=== PATIENT | male | born 1940 | race Caucasian/White ===

== ENCOUNTER 2017-03-25 15:00 | Outpatient (RCR) | payer MEDICARE, SELFPAY ==
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
--- NOTE | 2017-02-03 12:10 | HP.OTCOM ---
OT Communication Note 02/03/[address] Miryam Peter, Issac has been referred to us s/p distal radius fracture which required pinning. Pins removed 12/25/16 and OT started shortly after. He noted upon arriving that he has follow-up appointment to further discuss pain relieving options for his L UE. Pt. completed strength and ROM assessment post paraffin bath to help decrease pain from 4/10 to 0/10 prior to starting measurements. Pain consistently increased with each movement. Pt. ROM of L wrist and hand are as follows: L wrist flexion 0- 28, extension 0-30 degrees. Pt. has decreased ability to form composite fist and increased pain with all movements, especially supination. Pt. MCP of L hand ROM 2nd 62, 3rd 55, 4th 46, 5th 48, PIP 2nd 74, 3rd 82, 4th 95, 5th 81, DIP 2nd 35, 3rd 47, 4th 34, 5th 37. 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 Pt. edema is down with use if Isotoner edema glove. Pt. is unable to complete pinch strength assessment at this time on L hand. Pt. pinch assessment on R hand are as follows: lateral 20 lbs, three jaw 19 lbs, tip pinch 14 lbs. Pt. is scheduled for OT through the end of January. He is having significant pain consistently throughout the day. Occupational Therapists educated on alternative options, such as surgery to realign ulna. He is open to looking into further options for pain reduction at this time. Sincerely, Julee Gonzales, OTR/L Contact Information
--- NOTE | 2017-02-19 12:35 | OTREVAL_ITS ---
Miryam Peter, DO, It has been my pleasure to treat WILBER BRADY over the last 8 visits for s/p CRPP L radiaus amd CYN; Pins removed 12/22. Please see the progress note below for an update on the occupational therapy plan of care! Subjective: pt arrives with brace on states he still has pain at night-doing what he can with wrist brace on. Pt states pain increases when the wrist brace is removed. Reports he is has pain with bathing and dressing as this is a time he does not have his brace on. With brace he feels better and pain is less. Objective/Function: Pt has had recent set back of increase pain and swelling two weeks ago. pt was place back in wrist brace to decrease pain and swelling. pt has had a decrease in swelling, and pts pain has decreased from 8/10 to 2/ 10. He demonstrates increase in the ability to form a composite fist- at 1.5 away. Wrist ROM is improving pt's sup/pronation of forearm is more challenging and causes pain- Wrist ROM 40/35 is improving. Plan Frequency: 2x /Week Duration: 4-6 Weeks Plan: has instructed pt to initiate light strengthening as pt tolerates to increase his ind. with funcitonal strength. Goals - Goals Goal:: Pt. to increase L hand strength by 30 lbs to increase fx use of hand for ADl/IADls 4/5 trials 80% of the time by d/c in 4-6 weeks. Goal:: Pt. to increase L wrist ROM to that of 10 degrees lesser value of R wrist for flex/ext for increase (I) in ADl/IADl sby time of d/c in 4-6 weeks. Goal:: Pt. will exhibit decrease pain to 1-2/10 during fx activities for increased (I) in ADl/IADl s and QOL by time of d/c in 406 weeks. Goal:: Pt. to exhibit decreased edema in L hand to measurement similar to R hand for increased (I) and decrease pain by time of d/c in 4-6 weeks. Goal:: Pt. to be mod I to implement Jt protection techniques 4/5 trials 80% of the time to increase (I) and decrease need for assistance. Goal:: Pt. to be mod I to resume ADl/IADl with L hand (i.g kicthen tasks, utensil manipulation, yard work etc.) for increased (I) and QOL by time of d/c in 4-6 weeks. Anticipated Interventions Anticipated Interventions: Early Active Motion, A/AAROM/PROM, Strengthening, Edema Control, Desensitization, Joint Protection/Energy Conservation, Ergonomic Education, Fine Motor Coord/Michael, ADL Training, Caregiver Training, Home Program Please do not hesitate to contact me at [phone] by phone or Fax: if you have questions or concerns regarding this new plan of care! Sincerely, Roselyn Rosas, OTR/L, CHT
== END 2017-08-25 16:00 | disposition home or self-care (01) ==
LOC: OT 15:00
PROVIDERS: Family Provider Family Medicine; PCP Family Medicine; Visit Provider Orthopaedic Surgery
DX: Z98.890 Other specified postprocedural states (principal); Z47.89 Encounter for other orthopedic aftercare
CPT/HCPCS: 97018; 97035; 97110; 97140; 97166; 97530

== ENCOUNTER 2017-09-21 06:00 | Outpatient (RCR) | payer SELFPAY | END 2017-09-22 23:59 | LOC: CR 06:00 | PROVIDERS: Family Provider Family Medicine; PCP Family Medicine; Visit Provider Family Medicine | DX: Z00.00 Encounter for general adult medical examination without abnormal findings (principal) ==

== ENCOUNTER 2017-10-19 06:00 | Outpatient (RCR) | payer SELFPAY | END 2017-10-20 23:59 | LOC: CR 06:00 | PROVIDERS: Family Provider Family Medicine; PCP Family Medicine; Visit Provider Family Medicine | DX: Z00.00 Encounter for general adult medical examination without abnormal findings (principal) ==

== ENCOUNTER 2017-10-28 09:30 | Outpatient (RCR) | payer MEDICARE, SELFPAY ==
--- NOTE | 2017-07-05 09:24 | HP.OTEVAL_ITS ---
Patient's Visit Information WILBER BRADY is a 77 year old M, referred to Occupational Therapy by Christopher Up,, with a diagnosis of left wrsit distal ulna resection and wrist arthrodesis with autograft. Date of Evaluation: 07/02/17 Occupational Therapist: Roselyn Rosas, ILSAR/Ebony, CHT - Subjective Subjective: This pt is well known to this therapist- Due to complicated left wrist fx. 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 After meeting with pt opted to have a left wrist distal resection and then wrist arthrodessis with autograft and allograft bone grafting. has requested Hand therapy to initiate digital ROM. pronation and supination edema control and modalities at indicated- - ROM ROM Comments: pt demo edema of left hand and limited digit ROM. pt states with MCP ext he feels a burning sensation-. MCP flex is 30 degrees-. 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 Pt will demo the ability to form a composite fist for increase ind with bathing/dressing and eating tasks by d/c Goal:: pt lamont report pain no greater than 2/10 with use of left UE for BADLS and IADLS by d/c - Rehabilitation General Assessment: pt arrives with cast on and demo with edema and limited digit and forearm supination- pt c/o left shoulder and elbow pain- limiting use of left UE for BADSL and IADLS Rehabilitation Potential: Good - Anticipated Interventions Anticipated Interventions: A/AAROM/PROM, Strengthening, Edema Control, Triggerpoint Release, Modalities, Orthoses, Joint Protection/Energy Conservation - Visit Plan Frequency: 1-2x /Week Duration: 6 Weeks General Plan: will initiate functional ROM per Dr. garcia and will progress as able to increase pts functional ROM and functional strength to return pt to PLOF TEXT: Thank you for the opportunity to evaluate your patient. For Medicare and Medicare HMO plans, please review the plan of care and approve it. It will need to be FAXED BACK to us at [phone] for Medicare purposes. Please let me know if there are questions or concerns regarding this plan of care. Physician Signature: Date:
--- NOTE | 2017-08-13 08:54 | HP.OTREVAL ---
Christopher Up, It has been my pleasure to treat WILBER BRADY over the last 6 visits for left wrsit distal ulna resection and wrist arthrodesis with autograft. Please see the progress note below for an update on the occupational therapy plan of care! Subjective: pt states he has made gains but he has good and bad days with his end range of motion and pain Objective/Function: pt demo good ext of digits-. right oncology registrar 60# left oncology registrar 15#. left lat.pinch 5#. right lat. pinch 16#. left tripod pinch 4#. right tripod pinch 12#. 1 from composite fist Plan Frequency: 1-2x /Week Duration: 6 Weeks Plan: pt is making good progress with is digit ROM and forearm supination. pt just initiated PRE to increase oncology registrar strength to return pt to PLOF. REc'd cont. of skilled OT services for pt to reach his max rehab Goals - Goals Goal:: pt will demo a 35# oncology registrar strength to increase ind with BADLs and IADLs to decrease need of assist from his by d/c Goal:: pt will demo the ability to sup left forearm to hold coins and perform BADls by d/c. Pt will demo the ability to form a composite fist for increase ind with bathing/dressing and eating tasks by d/c Goal:: pt lamont report pain no greater than 2/10 with use of left UE for BADLS and IADLS by d/c Anticipated Interventions Anticipated Interventions: A/AAROM/PROM, Strengthening, Edema Control, Triggerpoint Release, Modalities, Orthoses, Joint Protection/Energy Conservation Please do not hesitate to contact me at [phone] by phone or if you have questions or concerns regarding this new plan of care! Sincerely, Roselyn Rosas, OTR/L, CHT
--- NOTE | 2017-10-28 10:18 | HP.OTDCSUM ---
HP - OT D/C Summary It has been my pleasure to treat WILBER BRADY under orders from Christopher Up, for the diagnosis of left wrsit distal ulna resection and wrist arthrodesis with autograft for a total of 8 visit(s). Please see the following information for a summary of their discharge status. - Objective Objective/Function: pt demo with left laser systems engineer strength 40#. left later pinch 8#. pts IF stays 1cm away from composite flex-. all other fingers demo functional ROM. left wrist circum. 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 Pt will demo the ability to form a composite fist for increase ind with bathing/dressing and eating tasks by d/c Goal:: pt lamont report pain no greater than 2/10 with use of left UE for BADLS and IADLS by d/c - Plan Plan: D/C - D/C Information Discharge Comments: pt has progressed well following a left wrist fusion- pt reports he is ind. with all BADLS and IADLS. pt does have increase sorness following alot of lifting or other activities. pt iwas advised to use ice to decrease swelling and heat to decrease finger stiffness- pt demo understanding - pt has met functional goals and is D/C If there are questions or concerns regarding this patient's occupational therapy, please fell free to call me at [phone]. Thank you for the referral of this patient. Sincerely, Roselyn Rosas, OTR/L, CHT
== END 2017-10-28 19:00 | disposition home or self-care (01) ==
LOC: OT 09:30
PROVIDERS: Family Provider Family Medicine; PCP Family Medicine; Visit Provider Orthopaedic Surgery
DX: S52.55 Other extraarticular fracture of lower end of radius (principal); M25.532 Pain in left wrist
CPT/HCPCS: 97166; 97018; 97035; 97110; 97140; 97168; 97530; 97802; G8987; G8988

== ENCOUNTER 2017-11-18 06:00 | Outpatient (RCR) | payer SELFPAY | END 2017-11-20 23:59 | LOC: CR 06:00 | PROVIDERS: Family Provider Family Medicine; PCP Family Medicine; Visit Provider Family Medicine | DX: Z00.00 Encounter for general adult medical examination without abnormal findings (principal) ==

== ENCOUNTER 2017-12-16 06:00 | Outpatient (RCR) | payer MEDICARE, SELFPAY | END 2017-12-20 23:59 | LOC: CR 06:00 | PROVIDERS: Family Provider Family Medicine; PCP Family Medicine; Visit Provider Family Medicine | DX: Z00.00 Encounter for general adult medical examination without abnormal findings (principal) ==

== ENCOUNTER → 2018-01-05 10:48 | Outpatient (CLI) | payer MEDICARE, SELFPAY ==
--- NOTE | 2018-01-05 10:50 | ECHOCS_ITS ---
Reason For Study: CAD/ASHD Procedure This was a 2D Doppler, Color Flow transthoracic echocardiogram. The exam was of fair technical quality due to body habitus. The study was technically difficult. Contrast injection was performed. Exam performed in department. Left Ventricle Normal LV size. Mild segmental systolic dysfunction (see wall motion). The estimated ejection fraction is 50 %. Unable to assess diastolic dysfunction. Mid-Anterior : Hypokinetic. Mid-Lateral : Hypokinetic. Mid-Posterior: Hypokinetic. Mid-anteroseptal : Hypokinetic. Anterior [place] : Akinetic. Inferior [place] : Hypokinetic. Lateral [place] : Hypokinetic. Septal [place] : Hypokinetic. Right Ventricle Normal RV size. Normal systolic function. Atria Normal left atrium. Normal right atrium. No doppler evidence for ASD. Mitral Valve There is no mitral annular calcification. Normal mitral valve. Mild-Moderate (1-2+) mitral valve insufficiency. Tricuspid Valve Normal tricuspid valve. Trivial tricuspid valve insufficiency. Right ventricular systolic pressure estimated to be 19 mmHg. Aortic Valve Trisinus/trileaflet aortic valve. Moderate diffuse aortic valve thickening. Moderate focal aortic valve calcification. Mild to moderate aortic stenosis. Mild (1+) aortic valve insufficiency. Pulmonic Valve The pulmonic valve is not well visualized. Mild (1+) pulmonic valve insufficiency. Great Vessels Mildly dilated ascending aorta. Pericardium/Pleural No pericardial effusion. Medication Definity0.3ml given slow IV push to enhance endocardial definition. MMode/2D Measurements & Calculations LVIDd: 5.1 cm IVSd: 1.1 cm LVOT diam: 2.1 cm LVIDs: 3.7 cm LVPWd: 0.97 cm LVOT area: 3.6 cm2 RVDd: 4.5 cm FS: 27.0 % Ao root diam: 4.2 cm LAV(MOD-bp): 31.7 ml LA A4 area: 11.7 cm2 LA dimension: 4.5 cm LAV(MOD-bp) Indexed: 14.8 ml/m2 LAV(MOD-sp2): 40.5 ml LAV(MOD-sp4): 24.4 ml RA A4 area: 14.5 cm2 Doppler Measurements & Calculations MV E max jeromy: 63.5 cm/sec Lat Peak E' Jeromy: 6.5 cm/sec Med Peak E' Jeromy: 4.5 cm/sec MV A max jeromy: 102.4 cm/sec E/E' lat: 9.8 E/E' med: 14.1 MV E/A: 0.62 Ao V2 max: 283.6 cm/sec AI max jeromy: 329.6 cm/sec LV V1 max: 109.8 cm/sec Ao max P.2 mmHg AI max P.6 mmHg LV V1 max P.8 mmHg Ao V2 mean: 211.2 cm/sec AI dec slope: 168.2 cm/sec2 LV V1 mean P.1 mmHg Ao mean P.5 mmHg AI P1/2t: 573.9 msec LV V1 mean: 84.9 cm/sec Ao V2 VTI: 64.4 cm LV V1 VTI: 26.2 cm CONCETTA(I,D): 1.5 cm2 CONCETTA(V,D): 1.4 cm2 SV(LVOT): 94.0 ml PA V2 max: 126.0 cm/sec PI end-d jeromy: 96.2 cm/sec TR max jeromy: 196.4 cm/sec TR max P.5 mmHg Interpretation Summary The study was technically difficult. Contrast injection was performed. Mild segmental systolic dysfunction (see wall motion). The estimated ejection fraction is 50 %. Mild-Moderate (1-2+) mitral valve insufficiency. Trivial tricuspid valve insufficiency. Mild to moderate aortic stenosis. Mild (1+) aortic valve insufficiency. Mild (1+) pulmonic valve insufficiency. Mildly dilated ascending aorta. Right ventricular systolic pressure estimated to be 19 mmHg. Unable to assess diastolic dysfunction. Ordering Physician: Freddie Persaud Referring Physician: Angel Calvillo Performed By: Nubia Ny, CATHERINE, RVT
== END ==
PROVIDERS: Family Provider Family Medicine; PCP Family Medicine; Visit Provider Internal Medicine Cardiovascular Disease
DX: I25.10 Atherosclerotic heart disease of native coronary artery without angina pectoris (principal); I31.3 Pericardial effusion (noninflammatory); I31.4 Cardiac tamponade; E78.5 Hyperlipidemia, unspecified; I10 Essential (primary) hypertension; R57.0 Cardiogenic shock; Z95.5 Presence of coronary angioplasty implant and graft; Z95.1 Presence of aortocoronary bypass graft
CPT/HCPCS: 93306; Q9957; A4216; C8929

== ENCOUNTER → 2018-01-28 07:46 | Outpatient (CLI) | payer MEDICARE, SELFPAY ==
--- NOTE | 2018-01-28 07:46 | DT_ITS ---
This patient was seen during an EMR downtime January 24, 2018 - January 31, 2018. This patient may have a combination of paper and electronic documentation or all paper documentation. All documentation is viewable within the e-chart portion of [facility] for each patient visit.
--- NOTE | 2018-01-28 07:55 | CT_ITS ---
STUDY: CTA CHEST REASON FOR EXAM: Male, 78 years old. Thoracic aortic ectasia. RADIATION DOSAGE (If Supplied By Facility): CTDIvol = ( 19.97 ) mGy, DLP = ( 738.55 ) mGycm TECHNIQUE: The examination was performed with the intravenous administration of 100ml ml of Isovue 370 contrast material. Post-processing of the angiographic images was performed, with multiplanar reformation and 3D reconstruction. Individualized dose optimization techniques were used for this CT. COMPARISON: None. FINDINGS: : TRACHEA, THYROID, ESOPHAGUS: No tracheomalacia,stricture or wall thickening. Thyroid and esophagus are normal CARDIOVASCULAR SYSTEM: There is an aberrant right subclavian artery. The thoracic aorta is otherwise normal with no dissection or focal aneurysm. The pulmonary trunk and the lateral pulmonary arteries and their lobar and segmental branches are normal with no abnormal and persistent filling defects in them to indicate the presence of pulmonary embolism. The heart is normal. KARYN AND LYMPH NODES: No hilar masses and no mediastinal, hilar, axillary or supraclavicular adenopathy LUNGS, LOW-ATTENUATION: No traction bronchiectasis, honeycombing,emphysema, lung cysts or cavitations LUNGS, HIGH ATTENUATION: No nodules/masses, ground glass opacities/consolidations or increased interstitial markings LUNGS, MOSAIC/CRAZY PAVING: Not evident PLEURA AND CHEST WALL: No plural effusions, pneumothoraces,rib fractures or any osteolytic/osteoblastic changes . The soft tissue chest wall including the breasts are normal UPPER ABDOMEN: Unremarkable .. CT/Chest W/WO Contrast IMPRESSION: No evidence of any pulmonary embolism. An aberrant right subclavian artery. No acute findings in the lungs Electronically Signed: Juan Martin, at 8:02 EDT Tel , Service support ,
[2018-02-06 14:58] LABS: CREATININE FINGERSTICK 1.15 mg/dL (0.70-1.30)
== END ==
PROVIDERS: Family Provider Family Medicine; PCP Family Medicine; Visit Provider Internal Medicine Cardiovascular Disease
DX: I77.810 Thoracic aortic ectasia (principal)
CPT/HCPCS: 71270; Q9967

== ENCOUNTER 2018-02-22 06:41 | Outpatient (RCR) | payer MEDICARE, SELFPAY | END 2018-03-22 23:59 | LOC: CR 06:41 | PROVIDERS: Family Provider Family Medicine; PCP Family Medicine; Visit Provider Family Medicine | DX: Z00.00 Encounter for general adult medical examination without abnormal findings (principal) ==

== ENCOUNTER → 2018-02-25 09:27 | Outpatient (CLI) | payer MEDICARE, SELFPAY ==
[2018-02-25 12:38] LABS: Anion Gap 10 (5-15); BUN 34 mg/dL (7-18); BUN/Creat Ratio 26.2 RATIO (10-20); Calcium,Total 8.8 mg/dL (8.5-10.1); Chloride 104 mmol/L (98-107); Cholesterol 80 mg/dL (200); EST Glomerular Filtration Rate 57 mL/min (>60); Est Glom Filt Rate - Afr Amer 69 mL/min (>60); Glucose 229 mg/dL (74-106); High Density Lipoprotein 37 mg/dL; Potassium 4.6 mmol/L (3.5-5.1); Sodium Level 136 mmol/L (136-145); Triglycerides 66 mg/dL; Very Low Density Lipoprotein 13 mg/dL (5-40)
== END ==
PROVIDERS: Family Provider Family Medicine; PCP Family Medicine; Visit Provider Family Medicine
DX: I10 Essential (primary) hypertension (principal); I25.10 Atherosclerotic heart disease of native coronary artery without angina pectoris; E11.9 Type 2 diabetes mellitus without complications
CPT/HCPCS: 36415; 80048; 80061; 83036

== ENCOUNTER 2018-04-26 06:35 | Outpatient (RCR) | payer SELFPAY | END 2018-05-22 23:59 | LOC: CR 06:35 | PROVIDERS: Family Provider Family Medicine; PCP Family Medicine; Visit Provider Family Medicine | DX: Z00.00 Encounter for general adult medical examination without abnormal findings (principal) ==

== ENCOUNTER 2018-06-21 06:00 | Outpatient (RCR) | payer SELFPAY | END 2018-06-22 23:59 | LOC: CR 06:00 | PROVIDERS: Family Provider Family Medicine; PCP Family Medicine; Visit Provider Family Medicine | DX: Z00.00 Encounter for general adult medical examination without abnormal findings (principal) ==

== ENCOUNTER → 2018-06-23 06:49 | Outpatient (CLI) | payer MEDICARE, SELFPAY ==
--- NOTE | 2018-06-23 06:53 | ECHOCS_ITS ---
Reason For Study: CAD/ASHD Procedure This was a 2D Doppler, Color Flow transthoracic echocardiogram. The study was technically difficult. Contrast injection was performed. Exam performed in department. Left Ventricle Normal LV size. Mild segmental systolic dysfunction (see wall motion). The estimated ejection fraction is 45 %. Transmitral diastolic flow velocities suggest moderate (stage 2) diastolic dysfunction (pseudonormal pattern). Mid-Anterior : Hypokinetic. Mid-Lateral : Akinetic. Mid- Posterior: Hypokinetic. Anterior [place] : Akinetic. Inferior [place] : Hypokinetic. Lateral [place] : Akinetic. Septal [place] : Hypokinetic. Right Ventricle Normal RV size. Normal systolic function. Atria The left atrium is mildly enlarged. Normal right atrium. No doppler evidence for ASD. Mitral Valve There is no mitral annular calcification. Normal mitral valve. Moderate (2+) mitral valve insufficiency. Tricuspid Valve Normal tricuspid valve. Mild tricuspid valve insufficiency. Right ventricular systolic pressure estimated to be 54 mmHg. Aortic Valve Trisinus/trileaflet aortic valve. Moderate diffuse aortic valve thickening. Moderate focal aortic valve calcification. Mild to moderate aortic stenosis. Mild-Moderate (1-2+) aortic valve insufficiency. Pulmonic Valve The pulmonic valve is not well visualized. Moderate (2+) pulmonic valve insufficiency. Great Vessels The ascending aorta is mildly dilated. Pericardium/Pleural No pericardial effusion. Medication Diluted definity 1.0ml given slow IV push to enhance endocardial definition. MMode/2D Measurements & Calculations LVIDd: 5.2 cm IVSd: 1.00 cm LVOT diam: 2.1 cm LVIDs: 3.7 cm LVPWd: 1.1 cm LVOT area: 3.5 cm2 RVDd: 3.6 cm FS: 29.2 % LAV(MOD-bp): 76.3 ml LA A4 area: 22.3 cm2 LA dimension(2D): 3.9 cm LAV(MOD-bp) Indexed: 35.1 ml/m2 LAV(MOD-sp2): 76.7 ml LAV(MOD-sp4): 76.1 ml RA A4 area: 15.0 cm2 Time Measurements MV dec time: 0.21 sec Doppler Measurements & Calculations MV E max jeromy: 122.9 cm/sec Lat Peak E' Jeromy: 10.0 cm/sec Med Peak E' Jeromy: 5.8 cm/sec MV A max jeromy: 76.7 cm/sec E/E' lat: 12.3 E/E' med: 21.2 MV E/A: 1.6 Ao V2 max: 284.2 cm/sec AI max jeromy: 314.6 cm/sec LV V1 max: 94.5 cm/sec Ao max P.4 mmHg AI max P.6 mmHg LV V1 max P.6 mmHg Ao V2 mean: 209.1 cm/sec AI dec slope: 197.4 cm/sec2 LV V1 mean P.0 mmHg Ao mean P.8 mmHg AI P1/2t: 466.8 msec LV V1 mean: 67.4 cm/sec Ao V2 VTI: 70.2 cm LV V1 VTI: 23.6 cm CONCETTA(I,D): 1.2 cm2 CONCETTA(V,D): 1.2 cm2 MR max jeromy: 563.0 cm/sec SV(LVOT): 82.1 ml PA V2 max: 115.0 cm/sec MR max P.8 mmHg MR mean jeromy: 461.1 cm/sec MR mean P.6 mmHg MR VTI: 204.9 cm PI dec slope: 230.8 cm/sec2 TR max jeromy: 313.7 cm/sec TR max P.4 mmHg Interpretation Summary The study was technically difficult. Contrast injection was performed. Mild segmental systolic dysfunction (see wall motion). The estimated ejection fraction is 45 %. The left atrium is mildly enlarged. Moderate (2+) mitral valve insufficiency. Mild tricuspid valve insufficiency. Mild to moderate aortic stenosis. Mild-Moderate (1-2+) aortic valve insufficiency. Moderate (2+) pulmonic valve insufficiency. The ascending aorta is mildly dilated. Right ventricular systolic pressure estimated to be 54 mmHg. Transmitral diastolic flow velocities suggest diastolic dysfunction (pseudonormal pattern). Ordering Physician: Freddie Persaud Referring Physician: Freddie Persaud Performed By: Rosita Raza, COLEENCS, RVT
--- NOTE | 2018-06-23 09:25 | STRESSREP ---
Stress Test Report Date: 06/23/2018 Procedure: Exercise tolerance test/imaging study Indications: Chest pain; CAD; PCI; CABG Consent: Per the patient Procedure: The patient exercised on a Harjit protocol for 3 minutes completing Stage I achieving a peak heart rate of 114 bpm (80 % predicted maximal heart rate) with a peak blood pressure 180/80 mmHg and a peak MET capacity of 4 METs. The baseline ECG demonstrated normal sinus rhythm; poor R wave progression; nonspecific ST segment abnormality. The peak exercise ECG demonstrated a normal ST segment depression of 2-3 mm horizontal/downsloping ST segment depression in leads II, III, aVF, and V4 through V6 with gradual resolution towards baseline in recovery. There were no cardiac dysrhythmias pretest, during exercise, or recovery. The functional capacity was considered decreased. There was chest discomfort at peak exercise with spontaneous resolution to baseline in recovery. The examination was discontinued secondary to chest discomfort. Impression: 1. Technically inadequate (percent predicted maximal heart rate less than 85%) exercise tolerance test 2. Peak exercise ECG with an additional 2-3 mm horizontal/downsloping ST segment depression in leads II, III, aVF, and V4 through V6 with gradual resolution towards baseline in recovery 3. There were no cardiac dysrhythmias pretest, during exercise, or recovery 4. Nuclear images pending Myocardial perfusion imaging study: Technique: The patient was injected with 14.8 mCi of technetium 99m Cardiolite and subsequently rest SPECT Cardiolite nuclear imaging was obtained in the horizontal long, vertical long, and short axis views. The patient exercised on a Harjit protocol for 3 minutes completing Stage I achieving a peak heart rate of 114 bpm (80 % predicted maximal heart rate) with a peak blood pressure 180/80 mmHg and a peak MET capacity of 4 METs. The patient was injected with 44.5 mCi of technetium 99m Cardiolite and subsequently stress SPECT Cardiolite nuclear imaging was obtained in the horizontal long, vertical long, and short axis views. A gated Cardiolite study at peak stress was obtained. Interpretation: Rest and stress SPECT Cardiolite nuclear imaging status post realignment, normalization, and attenuation correction, demonstrates appearance of diminished absence of myocardial perfusion/tracer uptake in portions of the basal to distal lateral, lateral apical, anterior apical, and inferior apical segments which appear somewhat more prominent following stress as opposed to rest in the distal lateral, lateral apical, and anterior apical segments. There is diminished end systolic thickening and brightening in the aforementioned areas. The gated Cardiolite study demonstrates diminished myocardial thickening and inward wall motion in the aforementioned areas. The reported LVEF is 38 %. Impression: 1. Rest and stress SPECT Cardiolite nuclear imaging demonstrate myocardial perfusion changes compatible with an area of previous myocardial injury/infarction involving portions of the basal to distal lateral, lateral apical, anterior apical, and inferior apical segments with post stress myocardial perfusion changes appearing compatible with samira-infarct related myocardial ischemia. 2. The gated Cardiolite study reports an LVEF of 38 %. This note was generated with [employer] software. It may contain incorrect words, spelling, and punctuation that were not noted in checking the note before signing.
== END ==
PROVIDERS: Family Provider Family Medicine; PCP Family Medicine; Referring Provider Internal Medicine Cardiovascular Disease; Visit Provider Internal Medicine Cardiovascular Disease
DX: I25.119 Atherosclerotic heart disease of native coronary artery with unspecified angina pectoris (principal); R07.9 Chest pain, unspecified; Z95.1 Presence of aortocoronary bypass graft; Z95.5 Presence of coronary angioplasty implant and graft
CPT/HCPCS: 78452; 93017; 93306; A9500; Q9957; A4216; C8929

== ENCOUNTER 2018-06-23 07:34 | Outpatient (RCR) | payer SELFPAY | END 2018-07-22 23:59 | LOC: CR 07:34 | PROVIDERS: Family Provider Family Medicine; PCP Family Medicine; Visit Provider Family Medicine | DX: Z00.00 Encounter for general adult medical examination without abnormal findings (principal) ==

== ENCOUNTER 2018-07-26 06:42 | Outpatient (RCR) | payer SELFPAY ==
[2018-07-01 12:12] VITALS: BMI 33.2
== END 2018-08-22 23:59 ==
LOC: CR 06:42
PROVIDERS: Family Provider Family Medicine; PCP Family Medicine; Referring Provider Family Medicine; Visit Provider Family Medicine
DX: Z00.00 Encounter for general adult medical examination without abnormal findings (principal)

== ENCOUNTER 2018-08-25 07:17 | Outpatient (RCR) | payer SELFPAY ==
[2018-07-01 12:12] VITALS: BMI 33.2
== END 2018-09-22 23:59 ==
LOC: CR 07:17
PROVIDERS: Family Provider Family Medicine; PCP Family Medicine; Referring Provider Family Medicine; Visit Provider Family Medicine
DX: Z00.00 Encounter for general adult medical examination without abnormal findings (principal)

== ENCOUNTER → 2019-02-10 | Outpatient (CLI) | payer MEDICARE, SELFPAY ==
[2019-01-13 10:33] VITALS: BMI 33.5
--- NOTE | 2019-02-10 12:40 | ECHOD_ITS ---
Reason For Study: Murmur Procedure This was a 2D Doppler, Color Flow transthoracic echocardiogram. The exam was of adequate technical quality. Exam performed in department. Left Ventricle Normal LV size. Mild segmental systolic dysfunction (see wall motion). The estimated ejection fraction is 50 %. Mid-Anterior : Hypokinetic. Mid-Lateral : Akinetic. Mid-Posterior: Hypokinetic. Anterior Rowley : Hypokinetic. Lateral Rowley : Akinetic. Right Ventricle Normal RV size. Normal systolic function. Atria The left atrium is mildly enlarged. Normal right atrium. No doppler evidence for ASD. Mitral Valve There is no mitral annular calcification. Normal mitral valve. Mild-Moderate (1-2+) mitral valve insufficiency. Tricuspid Valve Normal tricuspid valve. Mild tricuspid valve insufficiency. Right ventricular systolic pressure estimated to be 31 mmHg. Aortic Valve Trisinus/trileaflet aortic valve. Moderate diffuse aortic valve thickening. Moderate diffuse aortic valve calcification. Severe aortic valve stenosis. (Based upon aortic valve area). Mild (1+) aortic valve insufficiency. Pulmonic Valve The pulmonic valve is not well visualized. Moderate (2+) eccentric pulmonic valve insufficiency. Great Vessels Mildly dilated aortic root. Pericardium/Pleural No pericardial effusion. MMode/2D Measurements & Calculations LVIDd: 4.6 cm IVSd: 1.7 cm LVOT diam: 2.0 cm LVIDs: 3.2 cm LVPWd: 1.2 cm LVOT area: 3.0 cm2 RVDd: 3.8 cm FS: 29.6 % Ao root diam: 4.0 cm LAV(MOD-bp): 80.9 ml LVAd ap4: 40.1 cm2 ACS: 0.74 cm LAV(MOD-bp) Indexed: 38.1 ml/m2 EDV(MOD-sp4): 137.9 ml LA dimension: 4.3 cm LAV(MOD-sp2): 73.9 ml EDV(sp4-el): 144.2 ml LAV(MOD-sp4): 74.1 ml LVAs ap4: 28.9 cm2 ESV(MOD-sp4): 80.9 ml ESV(sp4-el): 82.1 ml EF(MOD-sp4): 41.3 % EF(sp4-el): 43.0 % SV(MOD-sp4): 57.0 ml SV(sp4-el): 62.0 ml LA A4 area: 24.0 cm2 RA A4 area: 15.6 cm2 Time Measurements MV dec time: 0.24 sec Doppler Measurements & Calculations MV E max jeromy: 99.5 cm/sec Lat Peak E' Jeromy: 9.7 cm/sec Med Peak E' Jeromy: 4.1 cm/sec MV A max jeromy: 89.8 cm/sec E/E' lat: 10.2 E/E' med: 24.1 MV E/A: 1.1 MV V2 max: 107.9 cm/sec MV P1/2t max jeromy: 106.9 cm/sec Ao V2 max: 282.1 cm/sec MV max P.7 mmHg MV P1/2t: 91.1 msec Ao max P.8 mmHg MV V2 mean: 56.3 cm/sec Ao V2 mean: 186.0 cm/sec MV mean P.5 mmHg MV dec slope: 343.5 cm/sec2 Ao mean P.3 mmHg MV V2 VTI: 41.1 cm MVA(P1/2t): 2.4 cm2 Ao V2 VTI: 70.6 cm MVA(VTI): 1.2 cm2 CONCETTA(I,D): 0.69 cm2 CONCETTA(V,D): 0.79 cm2 AI max jeromy: 336.6 cm/sec LV V1 max: 74.0 cm/sec MR max jeromy: 558.1 cm/sec AI max P.3 mmHg LV V1 max P.2 mmHg MR max P.6 mmHg LV V1 mean P.93 mmHg MR mean jeromy: 421.7 cm/sec AI dec slope: 171.2 cm/sec2 LV V1 mean: 43.2 cm/sec MR mean P.9 mmHg AI P1/2t: 575.8 msec LV V1 VTI: 16.1 cm MR VTI: 203.6 cm SV(LVOT): 48.6 ml PA V2 max: 110.4 cm/sec PI end-d jeromy: 132.0 cm/sec TR max jeromy: 262.6 cm/sec TR max P.6 mmHg Interpretation Summary Mild segmental systolic dysfunction (see wall motion). The estimated ejection fraction is 50 %. The left atrium is mildly enlarged. Mild-Moderate (1-2+) mitral valve insufficiency. Mild tricuspid valve insufficiency. Severe aortic valve stenosis. (Based upon aortic valve area) Mild (1+) aortic valve insufficiency. Moderate (2+) eccentric pulmonic valve insufficiency. Mildly dilated aortic root. Right ventricular systolic pressure estimated to be 31 mmHg. Transmitral diastolic flow velocities suggest diastolic dysfunction (pseudonormal pattern). Ordering Physician: Freddie Persaud Referring Physician: Angel Calvillo Performed By: Maximino Camarillo RCS
--- NOTE | 2019-02-10 13:09 | CDU_ITS ---
Reason For Study: Carotid artery stenosis Rt. Velocities/BP Lt. Velocities/BP Prox CCA 81.2/8.2 cm/sec. Prox CCA 75.1/9.1 cm/sec. Mid CCA 72.1/8.2 cm/sec. Mid CCA 82.7/9.1 cm/sec. Dist CCA 69.5/5.6 cm/sec. Dist CCA 57.5/6.9 cm/sec. Prox ICA 130.2/22.5 cm/sec. Prox ICA 90/21.2 cm/sec. Mid ICA 146.7/24.3 cm/sec. Mid ICA 88.8/16.3 cm/sec. Dist ICA 124.7/18.8 cm/sec. Dist ICA 86.3/18.8 cm/sec. Rt. ICA/CCA = 2.0. Lt. ICA/CCA = 1.2. Prox ECA 141.2 cm/sec. Prox ECA 195 cm/sec. Rt. Vert. 29.4 cm/sec. Lt. Vert. 55.6/15.1 cm/sec. Right Extracranial There is heterogeneous, irregular atherosclerotic plaque noted in the right common carotid artery. There is heterogeneous, irregular atherosclerotic plaque noted in the right internal carotid artery. There is intimal thickening but no significant atherosclerotic plaque noted in the right external carotid artery. Antegrade flow is noted in the right vertebral artery. There is heterogeneous, irregular atherosclerotic plaque noted in the right bulb. Left Extracranial There is homogeneous, smooth atherosclerotic plaque noted in the left common carotid artery. There is heterogeneous, irregular atherosclerotic plaque noted in the left internal carotid artery. There is heterogeneous, irregular atherosclerotic plaque noted in the left external carotid artery. Antegrade flow is noted in the left vertebral artery. Procedure Carotid Duplex 23499. Exam performed in department. Interpretation Summary Moderate (50-69%) stenosis right extracranial internal carotid. Mild (<50%) stenosis left extracranial internal carotid. Flow within the vertebral arteries is antegrade bilaterally. Ordering Physician: Freddie Persaud Referring Physician: Angel Calvillo M.D. Performed By: Maddy Davison RVT
== END | disposition home or self-care (01) ==
LOC: CVS 12:39
PROVIDERS: Family Provider Family Medicine; PCP Family Medicine; Referring Provider Internal Medicine Cardiovascular Disease; Visit Provider Internal Medicine Cardiovascular Disease
DX: I65.23 Occlusion and stenosis of bilateral carotid arteries (principal); I25.10 Atherosclerotic heart disease of native coronary artery without angina pectoris
CPT/HCPCS: 93306; 93880

== ENCOUNTER 2019-02-12 08:17 | Emergency (ER) | payer MEDICARE, SELFPAY ==
[2019-01-13 10:33] VITALS: BMI 33.5
[2019-02-12] VITALS (7 sets, daily range): BP systolic 97–169; BP diastolic 65–78; PULSE 63–87; RESP 15–23; TEMP 36.6; O2SAT 93–96; BMI 33.0
--- NOTE | 2019-02-12 08:20 | EKG12_ITS ---
Test Reason : CP Blood Pressure : / mmHG Vent. Rate : 089 BPM Atrial Rate : 089 BPM P-R Int : 192 ms QRS Dur : 112 ms QT Int : 356 ms P-R-T Axes : 054 071 263 degrees QTc Int : 433 ms Normal sinus rhythm Incomplete left bundle branch block Marked ST abnormality, possible inferior subendocardial injury Marked ST abnormality, possible anterior subendocardial injury Abnormal ECG Confirmed by BEBA BEST ([id number]), editor newspaper ARLENE HUNTER ([id number]) on 02/15/2019 1:51:17 PM Referred By: KATT Confirmed By:BEBA BEST
--- NOTE | 2019-02-12 08:27 | RAD_ITS ---
STUDY: X-RAY CHEST REASON FOR EXAM: Male, 79 years old. TECHNIQUE: 1 view COMPARISON: February 19, 2016 FINDINGS: There is infiltration involving the medial aspect of the right base which is in the right lower lobe, the rest of the lung howell are clear, his is new finding since the previous study. The heart is moderately enlarged. No evidence of pleural effusion or pneumothorax. The trachea is in the midline. The visualized bony structures are intact. There are multiple metallic stitches along the sternum from previous surgery. RAD/Chest 1 View (Portable) IMPRESSION: Evidence of pneumonia right lower lobe for follow-up. Moderate cardiomegaly. Electronically Signed: Abdullahi Soria, at 8:58 EDT Tel , Service support ,
--- NOTE | 2019-02-12 08:27 | NURSING ---
STEMI DOC PAGED. DR SAN RETURNED CALL
[2019-02-12] MEDS: morphine 8 MG/ML Syringe IV (08:28)
[2019-02-12] MEDS: Ondansetron 4 MG/2 ML Vial IV (08:28)
--- NOTE | 2019-02-12 08:31 | ED.VIS.GEN ---
History of Present Illness Chief Complaint: Chest Pain Informant: Patient, Family Onset: Days Current Severity: Moderate Narrative: Chest pain, the patient has history of CABG, 3 cardiac stents [facility] about 6 months ago, indicates to have chest pain on and off since Wednesday that intensified this morning as a pressure in his chest 7 out of 10, came to the emergency room, indicates he supposed to have a cardiac catheter procedure at [facility] this Wednesday because of an abnormality was identified in a recent cardiac echo. He has had no fever no cough no numbness weakness or paresthesias he is is on Plavix baby aspirin he has not taken the aspirin yet today, he has had no fever cough abdominal discomfort no numbness weakness or paresthesias the chest pain is new for him as he usually does not explain his chest pain Past Medical History - Allergies and Home Meds Allergies/Adverse Reactions: Allergies amlodipine besylate [From Norvasc] Allergy (Verified 02/12/19 08:17) Unknown carisoprodol [From Soma] Allergy (Verified 02/12/19 08:17) Unknown cyclobenzaprine HCl [From Flexeril] Allergy (Verified 02/12/19 08:17) Unknown doxycycline Allergy (Verified 02/12/19 08:17) Unknown fosinopril Allergy (Verified 02/12/19 08:17) Unknown gemfibrozil [From Lopid] Allergy (Verified 02/12/19 08:17) Unknown Penicillins Allergy (Verified 02/12/19 08:17) Unknown pravastatin sodium [From Pravachol] Allergy (Verified 02/12/19 08:17) Unknown pregabalin [From Lyrica] Allergy (Verified 02/12/19 08:17) Unknown Urrhgjt-Wxc-Umq Reductase Inhibitor Allergy (Verified 02/12/19 08:17) Unknown losartan Adverse Reaction (Severe, Verified 02/12/19 08:17) leg cramps tramadol Adverse Reaction (Severe, Verified 02/12/19 08:17) Hallucinations,nausea, sweats and chills Primary Care Physician: Angel Calvillo MD [Primary Care Provider] - Past Medical History: - Surgical History: adenoidectomy, coronary bypass surgery, herniorrhaphy, tonsillectomy, - - back surgery laminectomy lumbar. Smoking Status: Never smoker - Family History Maternal Family History: Reports: No pertinent history Review of Systems ROS: - See above General: Denies: Chills, Fever, Sweats Eyes: Denies: Visual changes - bilaterally, Diplopia ENT: Denies: Rhinorrhea, Sore throat Cardiovascular: Reports: Chest pain. Denies: Palpitations Respiratory: Denies: Dyspnea, Cough, Dyspnea on exertion Gastrointestinal: Denies: Abdominal pain, Nausea, Vomiting, Diarrhea, Melena, Hematochezia Genitourinary: Denies: Dysuria, Hematuria, Frequency Musculoskeletal: Denies: Back pain, Extremity Pain Skin: Denies: Rash, Wounds Neurological: Denies: Headache, Weakness, Numbness Physical Exam Vital Signs/Narrative: Vital Signs Temp Pulse Resp BP Pulse Ox 02/12/19 08:26 96 02/12/19 08:19 97.9 F 87 23 H 169/78 H 95 General: Well nourished, Well developed, No Acute Distress Head: Normocephalic, Atraumatic Eyes: Perrl, EOMI ENT: Moist mucous membranes, No rhinorrhea Neck: Supple, Nontender Cardiovascular: Regular rate, Regular rhythm, No murmurs Respiratory: No distress, CTA bilaterally, Chest nontender Abdomen: Soft, Nontender, Nondistended, Normal bowel sounds Back: Nontender, Normal Inspection Extremities: Nontender, No edema Skin: Normal color, No rash Neurological: Alert, Oriented x3, Cranial nerves II-XII grossly intact, Normal Strength, Normal Sensation Psychological: Normal affect, Normal Mood Diagnostic/Tx/Re-eval - Medical Decision Making Patient's vital signs are within normal range, his EKG shows a sinus rhythm there is ST segment depression in the inferior leads anterior leads and laterally that are more prominent than prior EKG, spoke with Dr. Degroot immediately on-call data conversion operator to [phone], who agreed reviewed the EKG agree there was no STEMI recommended medical therapy with heparin drip nitro drip beta-kevin morphine as needed admission further management based on clinical status These therapies have been ordered and contact hospitalist to see patient patient further management admission Admit stable Final impression Chest pain, unstable angina, abnormal EKG, history of cardiovascular disease CABG stents Addendum the patient's family has now asked that the patient be transferred to [facility] under the care of his data conversion operator or Dr. Aguilar, I spoke with Dr. K APA CATIE data conversion operator sewing machine operator floorperson discussed the case in detail they agreed to accept patient transfer to [facility], patient second EKG shows improvement in the ST segment changes, chest x-ray shows findings right lower lobe base might be pneumonia he has no fever cough see those reports this will be further evaluated at the [facility], his troponin returned positive at 2.0 he is resting comfortably his chest pain is practically gone he understands the risk benefit of transfer and again they requested transfer and agree ED Disposition - Plan for ED Patient: Referrals: Angel Calvillo MD [Primary Care Provider] -
[2019-02-12 08:33] LABS: Absolute Lymphocyte Count 1.72 X10^3/ul (0.83-4.51); Absolute Neutrophil Count 5.3 X10^3/uL (2.0-7.7); Basophil# 0.03 X10^3/uL; Basophil% 0.4 % (0-1); Eosinophil# 0.26 X10^3/uL; Eosinophils% 3.2 % (0-5); Hematocrit 44.5 % (40-54); Hemoglobin 15.1 g/dl (13.0-16.5); Lymphocyte # 1.72 X10^3/ul (4.0); Lymphocyte % 21.5 % (19-41); Mean Corp Hgb Conc 33.9 g/gl (32-36); Mean Corpuscular Hgb 32.6 pg (27.0-32.0); Mean Corpuscular Volume 96.1 fL (80-94); Mean Platelet Vol. 11.2 fl (6.2-12.0); Monocyte# 0.69 X10^3/uL; Monocyte% 8.6 % (0-10); Neutrophil # 5.29 X10^3/uL (2.7-7.7); Neutrophil % 66.1 % (47-70); Platelet Count 157 K/mm3 (150-450); RBC Distribution Width CV 13.2 % (11.6-14.6); RBC Distribution Width SD 45.5 fl (35.1-43.9); Red Blood Count 4.63 M/mm3 (4.6-6.2)
[2019-02-12 08:34] LABS: POSITIVE COUNT NO; POSITIVE DIFFERENTIAL NO; POSITIVE MORPHOLOGY NO
--- NOTE | 2019-02-12 08:45 | NURSING ---
CALLING [facility] TO TRANSFER PATIENT
[2019-02-12 08:50] LABS: Partial Thromboplast Time 28.8 Seconds (24.1-36.2)
--- NOTE | 2019-02-12 08:51 | ED.DCSUM_ITS ---
History of Present Illness Chief Complaint: Chest Pain Informant: Patient, Family Narrative: This patient visit was charted in a separate document by Dr. Tapia. See his dictation. Past Medical History - Allergies and Home Meds Allergies/Adverse Reactions: Allergies amlodipine besylate [From Norvasc] Allergy (Verified 02/12/19 08:17) Unknown carisoprodol [From Soma] Allergy (Verified 02/12/19 08:17) Unknown cyclobenzaprine HCl [From Flexeril] Allergy (Verified 02/12/19 08:17) Unknown doxycycline Allergy (Verified 02/12/19 08:17) Unknown fosinopril Allergy (Verified 02/12/19 08:17) Unknown gemfibrozil [From Lopid] Allergy (Verified 02/12/19 08:17) Unknown Penicillins Allergy (Verified 02/12/19 08:17) Unknown pravastatin sodium [From Pravachol] Allergy (Verified 02/12/19 08:17) Unknown pregabalin [From Lyrica] Allergy (Verified 02/12/19 08:17) Unknown Udohqal-Znh-Luw Reductase Inhibitor Allergy (Verified 02/12/19 08:17) Unknown losartan Adverse Reaction (Severe, Verified 02/12/19 08:17) leg cramps tramadol Adverse Reaction (Severe, Verified 02/12/19 08:17) Hallucinations,nausea, sweats and chills Primary Care Physician: Angel Calvillo MD [Primary Care Provider] - Past Medical History: - Surgical History: adenoidectomy, coronary bypass surgery, herniorrhaphy, tonsillectomy, - - back surgery laminectomy lumbar. Smoking Status: Never smoker - Family History Maternal Family History: Reports: No pertinent history Review of Systems General: Denies: Chills, Fever, Sweats Eyes: Denies: Visual changes - bilaterally, Diplopia ENT: Denies: Rhinorrhea, Sore throat Cardiovascular: Denies: Chest pain, Palpitations Respiratory: Denies: Dyspnea, Cough, Dyspnea on exertion Gastrointestinal: Denies: Abdominal pain, Nausea, Vomiting, Diarrhea, Melena, Hematochezia Genitourinary: Denies: Dysuria, Hematuria, Frequency Musculoskeletal: Denies: Back pain, Extremity Pain Skin: Denies: Rash, Wounds Neurological: Denies: Headache, Weakness, Numbness Physical Exam Vital Signs/Narrative: Vital Signs Temp Pulse Resp BP Pulse Ox 02/12/19 08:48 76 15 97/78 95 02/12/19 08:26 96 02/12/19 08:19 97.9 F 87 23 H 169/78 H 95 General: Well nourished, Well developed, No Acute Distress Head: Normocephalic, Atraumatic Eyes: Perrl, EOMI ENT: Moist mucous membranes, No rhinorrhea Neck: Supple, Nontender Cardiovascular: Regular rate, Regular rhythm, No murmurs Respiratory: No distress, CTA bilaterally, Chest nontender Abdomen: Soft, Nontender, Nondistended, Normal bowel sounds Back: Nontender, Normal Inspection Extremities: Nontender, No edema Skin: Normal color, No rash Neurological: Alert, Oriented x3, Cranial nerves II-XII grossly intact, Normal Strength, Normal Sensation Psychological: Normal affect, Normal Mood Diagnostic/Tx/Re-eval - Medical Decision Making See above. ED Disposition - Plan for ED Patient: Disposition: [facility] - Main Referrals: Angel Calvillo MD [Primary Care Provider] -
[2019-02-12 08:55] LABS: Anion Gap 9 (5-15); BUN 27 mg/dL (7-18); BUN/Creat Ratio 19.4 RATIO (10-20); Calcium,Total 9.2 mg/dL (8.5-10.1); Chloride 107 mmol/L (98-107); Creatinine, Serum 1.39 mg/dL (0.70-1.30); EST Glomerular Filtration Rate 52 mL/min (>60); Est Glom Filt Rate - Afr Amer 63 mL/min (>60); Estimated Creatinine Clearance 43.09 ml/min; Glucose 348 mg/dL (74-106); Potassium 4.3 mmol/L (3.5-5.1); Sodium Level 137 mmol/L (136-145)
--- NOTE | 2019-02-12 08:56 | NURSING ---
DR JETER FOR DR BOLIVAR
[2019-02-12] MEDS: Nitroglycerin Infusion 250 ML 3 MG CONT INF (09:04)
[2019-02-12] MEDS: Heparin Injection (Vial) 5,000 UNIT/ML VIAL 4000 UNIT IV (09:12)
[2019-02-12] MEDS: HEPARIN/D5w 25,000 UNITS 25,000 UNITS/250 ML IV.SOLN. 10 UNITS IV (09:16)
[2019-02-12] MEDS: Metoprolol Tartrate 5 MG/5 ML Vial IV (09:20)
--- NOTE | 2019-02-12 09:30 | NURSING ---
CALLING [facility] TRANSFER LINE ABOUT CARDIOLOGY. TALKED TO ERNIE. FOREIGN BANKNOTE TELLER HASNT RETURNED THEIR
--- NOTE | 2019-02-12 09:48 | EKG12_ITS ---
Test Reason : REPEAT CP EKG Blood Pressure : / mmHG Vent. Rate : 066 BPM Atrial Rate : 066 BPM P-R Int : 208 ms QRS Dur : 112 ms QT Int : 382 ms P-R-T Axes : 033 064 -85 degrees QTc Int : 400 ms Normal sinus rhythm Marked ST abnormality, possible inferior subendocardial injury Abnormal ECG Confirmed by BEBA BEST ([id number]), brands editor ARLENE HUNTER ([id number]) on 02/15/2019 1:51:49 PM Referred By: KATT Confirmed By:BEBA BEST
--- NOTE | 2019-02-12 10:03 | NURSING ---
DR BING BOLIVAR
--- NOTE | 2019-02-12 11:24 | NURSING ---
KENNEDY CALIX, CALLED. FOR RN
--- NOTE | 2019-02-12 11:33 | NURSING ---
CALLED [facility] FOR TRANSPORT
--- NOTE | 2019-02-12 11:33 | NURSING ---
J31 BED 23 [facility]
== END 2019-02-12 12:08 | disposition short-term general hospital (02) ==
PROVIDERS: Emergency Provider Emergency Medicine; Family Provider Family Medicine; PCP Family Medicine
DX: R07.9 Chest pain, unspecified (principal); I25.110 Atherosclerotic heart disease of native coronary artery with unstable angina pectoris; R94.31 Abnormal electrocardiogram [ECG] [EKG]; Z95.1 Presence of aortocoronary bypass graft
CPT/HCPCS: 71045; 80048; 84484; 85025; 85730; 93005; 96365; 96366; 96368; 96375; 99283; A4216; J2405

== ENCOUNTER → 2019-02-17 | Outpatient (CLI) | payer MEDICARE, SELFPAY ==
[2019-02-12 08:19] VITALS: BMI 33.0
[2019-02-17 10:21] LABS: Anion Gap 10 (5-15); BUN 29 mg/dL (7-18); BUN/Creat Ratio 21.2 RATIO (10-20); Calcium,Total 8.5 mg/dL (8.5-10.1); Chloride 104 mmol/L (98-107); Creatinine, Serum 1.37 mg/dL (0.70-1.30); EST Glomerular Filtration Rate 53 mL/min (>60); Est Glom Filt Rate - Afr Amer 64 mL/min (>60); Glucose 206 mg/dL (74-106); Potassium 4.4 mmol/L (3.5-5.1); Sodium Level 137 mmol/L (136-145)
== END | disposition home or self-care (01) ==
LOC: MFPLAB 08:06
PROVIDERS: Family Provider Family Medicine; PCP Family Medicine; Referring Provider Family Medicine; Visit Provider Family Medicine
DX: N18.3 Chronic kidney disease, stage 3 (moderate) (principal)
CPT/HCPCS: 36415; 80048

== ENCOUNTER → 2019-02-21 | Outpatient (CLI) | payer MEDICARE, SELFPAY ==
[2019-02-12 08:19] VITALS: BMI 33.0
--- NOTE | 2019-02-21 11:07 | RAD_ITS ---
STUDY: X-RAY CHEST REASON FOR EXAM: Male, 79 years old. Cough x4 months TECHNIQUE: PA and lateral views of the chest. COMPARISON: Prior study of 02/12/2019 FINDINGS: The lungs are clear and expanded. There is no demonstrated pleural abnormality. The heart size is within normal limits. Status post anatomy changes are noted. Normal mediastinum and kayy. Normal visualized pulmonary arteries. There are calcified plaques of the thoracic aorta. There are diffuse degenerative changes of the visualized thoracic spine. Normal visualized ribs, clavicles, and shoulders. There is no demonstrated abnormality of the visualized soft tissue structures of the upper abdomen. RAD/Chest PA and Lateral IMPRESSION: 1. Status post sternotomy. 2. There has been interval resolution of right basilar infiltrate seen on the previous study. 3. Calcified plaques of the thoracic aorta. 4. Degenerative changes of the thoracic spine. Electronically Signed: Brennon Astudillo MD at 17:16 EDT , Service support ,
== END | disposition home or self-care (01) ==
LOC: MTRAD 11:06
PROVIDERS: Family Provider Family Medicine; PCP Family Medicine; Referring Provider Family Medicine; Visit Provider Family Medicine
DX: J18.9 Pneumonia, unspecified organism (principal)
CPT/HCPCS: 71046

== ENCOUNTER → 2019-04-27 | Outpatient (CLI) | payer MEDICARE, SELFPAY ==
[2019-04-10 09:29] VITALS: BMI 31.6
--- NOTE | 2019-04-27 10:03 | PCM.CR.ITP ---
General Information - General Information Admitting Diagnosis: PCI - Education/Goals Barriers to Learning: None Individual Counseling: Initial Assessment: Abnormal Cholesterol Levels, High Blood Pressure, Overweight/Obesity, Diabetes, Stress Cardiac Rehabilitation Goals: 1. Maintain the individual as the primary focus of care. 2. To improve the patient's quality of life. 3. Identification of cardiac risk factors and provide cardiac risk factor management. 4. Enhance the psychosocial status of the patient. 5. Reconditioning enough to allow the patient to resume customary activities. 6. Control symptoms of cardiac disease Scale for measuring improvement of personal goals: Enter appropriate number in Comments. 2 = Unchanged. 3 = Slightly Better. 4 = Moderate Improvement. 5 = Met my Goal Personal Goals: Initial Assessment: Quit smoking (participate in smoking cessation, Improve management of stress and emotions, Improve energy level, Participate in home exercise program, Get back to work, or to resume activities faster, Improve knowledge of cardiac disease, Improve muscle strength and endurance, Improve diet and eating habits (eat healthier), Control risk factors (learn risk factor modification), Other goal: Exercise - Initial Assessment - Visit Date of Eval: 04/27/19 - Stages of Change Stages of Change:: Action - Physician Prescribed Exercise Modalities: Treadmill, Biodyne, Rower, Airdyne, NuStep, SciFit Frequency (days/week): 3x/week for 12 weeks [36 sessions] Duration (Minutes):: 35-40 Intensity: 60-80% age predicted maximum heart rate reserve METs - Progression: 0.5-1.0 MET, RPE 11-14 WEEK: 0.5-1.0 - Hypertension Do any of the following apply?: Yes, Medication, Diet - Intervention Home Exercise/Activity Goal:: Moderate Exercise 30 min/day x 5 days/wk - Education Goals:: Warm-up, RPE XAVI Scale, S/S, Safe Exercise, Self-Monitoring - Exercise Program Goals Exercise Program Goals: Aerobic Activity >30 min Nutrition - Initial Assessment - Program Goals Nutrition Program Goals: LDL <70. Total Cholesterol <200. HDL >45. Triglycerides <150. HgbA1C <7%. BMI <25 - Visit Date of Assessment:: 04/27/19 - Stages of Change Stages of Change:: Action - Lipids Total Cholesterol (mg/dL) Goal = less than 200 mg/dL: 88 HDL Cholesterol (mg/dL) Goal = less than 45 mg/dL: 34 LDL Cholesterol (mg/dL) Goal = less than 70 mg/dL: 46 Triglycerides (mg/dL) Goal = less than 150 mg/dL: 114 Lipid Medication: yes - Diabetes Diabetes:: Yes Fasting blood glucose:: 72 Hgb A1C: 7.1 Insulin: Yes Do you monitor your blood sugar at home?: Yes - Weight Management Height: 5 ft 9 in Weight:: 210 lb Weight Goal (kg):: 200 lb Body Fat %:: 31.6 Total Score:: 3 - Intervention Referral to dietitian:: Yes Referral to Diabetic Clinic:: Yes Will attend diet classes:: Yes - Education Gave educational materials for:: Signs & symptoms of hypoglycemia, Signs & symptoms of hyperglycemia, Relate diabetes to coronary artery disease, Healthy eating Tobacco - Initial Assessment - Program Goals Tobacco Program Goals: Complete smoking cessation. Attend education classes. Improve Knowledge Test score - Stage of Change Stages of Change:: Maintenance - Learning Barriers Learning Barriers: Vision, Ready to Learn - Family Support Do you have family support?: Yes - Tobacco Use Tobacco Use: Non-smoker How long ago did you quit using tobacco products?: Greater than or equal to 6 months ago How many cigarettes do you smoke per day?: 1 - rare cigar when fishing, Do you use smokeless tobacco?: No - Intervention Smoking Cessation Referral:: No Individual Education/Counseling:: No Education Schedule Given:: Yes - Education Attended class for:: Treating Heart Disease, How The Heart Works, What it means to have Heart Disease, How Coronary Artery Disease is Diagnosed, Heart Procedures, What Heart Medications Do, Risk Factors & Modifications, Living an Active Life, Nutrition, Emotions & Heart Disease, Stress Management & Relaxation, Sleep Disorders & Heart Disease Psychosocial - Initial Assess - Target Goals Target Goals: Assess presence or absence of depression. Using a valid screening tool, maximizes coping skills. Positive support system - Stages of Change Stages of Change:: Action - Psychosocial Test Tool Used:: HANDS Depression Questionnaire Self-reported stress:: yes wifes health and others health Tests Completed: SF - 36 survey completed, Mood Scale Test Total Mood Screening Score:: 3 Self-Efficacy Score:: 10 - Intervention PS - Interventions: Yes Attend Stress Management Classes, Yes Uses Stress Management Skills, No Referral to Mental Health, No Referral to [facility] Case Management, No Referral to Physician - Education Gave educational materials for:: Coping techniques, Signs & symptoms of depression, Stress management, Relaxation techniques - Patient/Program Goal Preventative Medication(s):: Aspirin, LOKI inhibitor, Clopidogrel, Beta kevin, Statin/lipid - Assistive Devices Assistive Devices:: None Fall Risk Assessed:: Yes Patient Health Questionnaire Initial Assessment 1. Little interest or pleasure in doing things: Not at all 2. Feeling down, depressed, or hopeless: Not at all 3. Trouble falling or staying asleep, or sleeping too much: Nearly every day 4. Feeling tired or having little energy: Not at all 5. Poor appetite or overeating: Not at all 6. Feeling bad about yourself -- or that you are a failure or have let yourself or your family down: Not at all 7. Trouble concentrating on things, such as reading the newspaper or watching television: Not at all 8. Moving or speaking so slowly that other people could have noticed. Or the opposite - being so fidgety or restless that you have been moving around a lot more than usual: Not at all 9. Thoughts that you would be better off , or of hurting yourself in some way: Not at all How difficult have these problems made it for you to do your work, take care of things at home, or get along with other people?: Not difficult at all Total Score: 3 IRVIN-Q SV Test - Statements CAD is a disease of the arteries in the heart: True Examples of risk factors for heart disease: True Angina is chest pain or discomfort: True The benefits of resistance training include: True Eating more meat and dairy products: False Anti-platelet medications such as aspirin are important: True The only effective way to manage stress: False An exercise warm-up slowly increases heart rate: False Prepared, processed foods usually have high sodium: True Depression is common after a heart attack: True The statin medications lower cholesterol: True To control blood pressure, lower the amount of sodium: True If someone gets chest discomfort during walking: False Transfats are partially hydrogenated vegetable oils: True Sleep apnea that is not treated increases the risk: False To control cholesterol, one should become a vegetarian: False Someone knows if he/she is exercising at the right level: False Diabetes cannot be prevented with exercise & health eating: False Stress is a large risk for heart attack: True A diet that can help lower blood pressure is rich in: True - Total Score Total Correct Responses: 17 Self-Efficacy Initial Assessment We would like to know how confident you are in doing certain activities. Please select your confidence level for:: Select your confidence level for the following using the scale 1-10 where 1 is not at all confident and 10 is totally confident. Your score is the average of all 6 responses. Fatigue: How confident are you that you can keep the fatigue caused by your disease from interfering with the things you want to do? Select Number: 10 Physical Discomfort or Pain: How confident are you that you can keep the physical discomfort or pain of your disease from interfering with the things you want to do? Select Number: 10 Emotional Distress: How confident are you that you can keep the emotional distress caused by your disease from interfering with the things you want to do? Select Number: 10 Other Symptoms or Health Problems: How confident are you that you can keep other symptoms or health problems from interfering with the things you want to do? Select Number: 10 Different Tasks and Activities: How confident are you that you can do the different tasks and activities needed to manage your health condition so as to reduce your need to see a doctor? Select Number: 10 Medication: How confident are you that you can do things other than just taking medication to reduce how much your illness affects your everyday life? Select Number: 10 Total Score:: 10 Nutrition Survey - Nutrition Survey Instructions Scoring Instructions: Scoring is as follows: Yes = 1 points. No = 0 point. Patient score that is >/=12 is considered to be at potential nutritional risk and could benefit from a referral to a registered dietitian. - Nutrition Survey Initial Have you lost >10 lbs over the past 2 months without trying?: No Are you following a special diet at home for diabetes, low fat, or low salt?: Yes Are you interested in meeting with a dietitian for help understanding your diet?: No Do you eat less than 3 meals a day?: No Do you eat fatty meats (moe, sausage, ribs, etc), fried foods, desserts, large amounts of salad dressings, margarine, butter, or cheese most days?: Yes Do you have food allergies? [Enter types in comment field]: No Do you eat in restaurants more than 3 times a week?: No Do you season food with salt, seasoning salt, or garlic salt?: No Do you used canned, boxed, frozen meals, or soups, seasoning packets?: No Total Score:: 2
--- NOTE | 2019-04-27 10:30 | CR.HP_ITS ---
CR - History & Physical - General Arrival date:: 04/27/19 Arrival time:: 10:00 Date of Referral:: 04/27/19 Date of CR Evaluation:: 04/27/19 Referring Physician: Dr. Maine Persaud Primary Diagnosis: PCI - History of Present Cardiac Event Onset Date: Enter Onset Date of cardiac illnesses in Comment field below Current stable Angina Pectoris:: No Acute Myocardial Infarction within 12 months:: Yes Coronary Artery Bypass Graft:: No Heart valve replacement or repair:: No PTCA or coronary stenting:: Yes - 02/13/19 Heart or Heart-Lung Transplant:: No Heart Failure EF <35%:: No Type of Symptoms:: SOB Interventions with present event:: PCI Were there any complications?: no - Medications Home Medications: Ambulatory Orders Medication Instructions Recorded Clopidogrel Bisulfate [Plavix] 75 mg PO DAILY #30 tab 02/06/16 Aspirin E.C. [Ecotrin] 81 mg PO DAILY@0800 11/02/16 Cyanocobalamin (Vitamin B-12) 1,000 mcg PO DAILY 11/02/16 [Vitamin B-12] Insulin Aspart [Novolog Flexpen 15 units SC BIDCM 11/02/16 ([facility])] Atorvastatin Calcium [Lipitor] 80 mg PO QHS 11/03/16 Cholecalciferol (Vitamin D3) 5,000 unit PO DAILY 11/03/16 [Vitamin D3] coenzyme Q10 10 mg capsule 200 mg PO QDAY cap 12/15/17 gabapentin 300 mg capsule 300 mg PO BID cap 12/15/17 metformin 500 mg tablet 500 mg PO BID 12/15/17 acetaminophen 325 mg capsule 650 mg PO Q6H PRN cap 12/17/17 carvedilol 6.25 mg tablet 6.25 mg PO BID 12/17/17 nitroglycerin 0.4 mg sublingual 0.4 mg SUBLINGUAL Q5-15M PRN #25 02/08/19 tablet tab Insulin Glargine,Hum.rec.anlog 25 unit SQ BID 02/12/19 [Lantus] furosemide 20 mg tablet 20 mg PO DAILY 04/07/19 losartan 25 mg tablet 25 mg PO DAILY 04/07/19 empagliflozin 25 mg tablet 12.5 mg PO QAM tab 04/10/19 Clopidogrel Bisulfate [Plavix] 75 mg PO DAILY 04/27/19 Empagliflozin [Jardiance] 10 mg PO DAILY 04/27/19 - Allergies Allergies/Adverse Reactions: Allergies amlodipine besylate [From Norvasc] Allergy (Verified 04/10/19 09:33) Unknown carisoprodol [From Soma] Allergy (Verified 04/10/19 09:33) Unknown cyclobenzaprine HCl [From Flexeril] Allergy (Verified 04/10/19 09:33) Unknown doxycycline Allergy (Verified 04/10/19 09:33) Unknown fosinopril Allergy (Verified 04/10/19 09:33) Unknown gemfibrozil [From Lopid] Allergy (Verified 04/10/19 09:33) Unknown Penicillins Allergy (Verified 04/10/19 09:33) Unknown pravastatin sodium [From Pravachol] Allergy (Verified 04/10/19 09:33) Unknown pregabalin [From Lyrica] Allergy (Verified 04/10/19 09:33) Unknown Nktjgkr-Wea-Mew Reductase Inhibitor Allergy (Verified 04/10/19 09:33) Unknown tramadol Adverse Reaction (Severe, Verified 04/10/19 09:33) Hallucinations,nausea, sweats and chills - Sleep Disorder Evaluation Hx of Sleep Apnea: Yes Do you snore loudly (louder than talking or can be heard through closed doors)?: Yes Do you often feel tired/ fatigued/ sleepy during daytime?: Yes Has anyone observed you stop breathing during sleep?: Yes History of Hypertension (for STOP score): Yes STOP Results: Positive Advanced Directives - Advanced Directives Power of Space And Storage Clerk: Yes Living Will: Yes Advance Directives Information Provided: Yes Advance Directives on File: Yes DNR Order?:: No Past Medical History - Past Medical Illness Medical History: Past Medical History (Last Updated 04/07/19 @ 14:06 by Roselyn Lemus) Essential hypertension (Chronic) I10 Bilateral carotid artery stenosis (Chronic) I65.23 Cardiogenic shock (Acute) R57.0 Pericardial effusion with cardiac tamponade (Acute) I31.3, I31.4 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 CABG - SINGH to LAD,SVG to PDA, SVG to OM, SVG to high diagonal 01/09/16; PCI/CALLY of the havasupai OM, PCI/CALLY to the proximal Y shaped graft to D1 and OM complicated with peforation treated with Covered stent2.4x16mm 01/21/16; PTCA/CALLY of RCA 01/29; PTCA/CALLY to mid RCA 11/05/09; PCI/CALLY of the instent restenosis of of the pre existing stent in the prox-mid RCA 12/29/10; Angiomax assisted FFR directed CALLY to mid LAD 12/26/12 STEMI (ST elevation myocardial infarction) (Acute) Peripheral vascular disease (Chronic) I73.9 Kidney stone (Chronic) Hyperlipidemia (Chronic) E78.5 Diabetes mellitus (Chronic) E11.9 History of DVT (deep vein thrombosis) Z86.718 History of pleural effusion Z87.09 - Past Surgical History Surgical History: Past Surgical History (Last Updated 04/07/19 @ 14:08 by Roselyn Lemus) Status post left heart catheterization (LHC) (Resolved) Onset Date: ~02/13/19 Z98.890 Laser atherectomy and PCI to mid RCA 02/13/19 Presence of aortocoronary bypass graft (Chronic) Onset Date: ~01/09/16 Z95.1 CABG - SINGH to LAD,SVG to PDA, SVG to OM, SVG to high diagonal 01/09/16 Presence of stent in coronary artery (Chronic) Z95.5 PCI/CALLY of the havasupai OM, PCI/CALLY to the proximal Y shaped graft to D1 and OM complicated with peforation treated with Covered stent2.4x16mm 01/21/16;PTCA/CALLY of RCA 01/29; PTCA/CALLY to mid RCA 11/05/09; PCI/CALLY of the instent restenosis of of the pre existing stent in the prox-mid RCA 12/29/10; Angiomax assisted FFR directed CALLY to mid LAD 12/26/12; rotational atherectomy of prox to mid RCA, laser atherectmy of mid RCA, PTCA/CALLY to distal RCA into the ostium, and PTCA/CALLY to prox/mid RCA 08/31/18 Postsurgical percutaneous transluminal coronary angioplasty (PTCA) status Z98.61 PCI/CALLY of the havasupai OM, PCI/CALLY to the proximal Y shaped graft to D1 and OM complicated with peforation treated with Covered stent2.4x16mm 01/21/16;PTCA/CALLY of RCA 01/29; PTCA/CALLY to mid RCA 11/05/09; PCI/CALLY of the instent restenosis of of the pre existing stent in the prox-mid RCA 12/29/10; Angiomax assisted FFR directed CALLY to mid LAD 12/26/12 History of hernia repair Z98.890, Z87.19 History of tonsillectomy and adenoidectomy Z98.890 Previous back surgery Z98.890 Status post pericardiocentesis Onset Date: ~01/21/16 Z98.890 Status post wrist surgery Z98.890 History of heart artery stent (Inactive) Onset Date: ~08/2018 Z95.5 Surgical History: adenoidectomy, angioplasty - 02/13/19, coronary bypass surgery, herniorrhaphy, tonsillectomy, - - back surgery laminectomy lumbar. - Family History Summary Family History: Family History (Last Updated 04/10/19 @ 09:38 by Sera Mendez) Mother Cancer melanoma Sister Cancer ovarian Brother Cancer leukemia Social History - Smoking History Smoking Status: Former smoker - cigars only when fishing, none for past year. Hx Tobacco Use: Yes - Alcohol Use Alcohol Usage: No - Substance Abuse Hx Substance Use: No - Occupation Occupation (List type of work in comments):: Retired - Hobbies, Recreation, Social Activities Hobbies: Other - yardwork Recreational Activities: I am able to engage in all my recreational activities Social Environment - Status Marital Status: - Current Living Arrangements Living Environment:: Spouse - Children How many children do you have?: 1 Do any of your children live nearby?: Yes - Safety Do you feel safe in your surroundings?: Yes - Assistance Do you need any assistance at home?: no Review of Systems - Review of Systems Hints: Right click = Denies (Slash). Left click = Reports ([place]ga) Review of Present Symptoms: Reports: PVD - hx., Operative Discomfort, Fatigue - takes breaks as needed, Appetite - Special Diet, Sleep - Normal - never has slept well at night for 20 years. Denies: Shortness of Breath at Rest, Shortness of Breath with Exertion, Angina, Wound Healing, Dizziness/Lightheadedness, Heart Arrhythmia/Irregularities, Appetite - Normal, Sexual Changes - Pain Is Patient Pain Free?: Yes Risk Factor Assessment - Chief Complaint Chief Complaint: s/p PCI - Pulse Pulse Rhythm: Regular - Hypertension How long have you been treated?: 5 years On medication(s)?: yes Blood Pressure Sitting - Right Arm: 140/72 Blood Pressure Sitting - Left Arm: 120/60 - Stress Stress: Recent - and friends will illnesses. - Blood Cholesterol/Lipids Total Cholesterol (mg/dL) Goal = less than 200 mg/dL: 88 HDL Cholesterol (mg/dL) Goal = less than 40 mg/dL: 34 LDL Cholesterol (mg/dL) Goal = less than 70 mg/dL: 46 Triglycerides (mg/dL) Goal = less than 150 mg/dL: 114 - Diabetes Diabetic History: Type II Nutrition Referral for Diabetes: Yes - Obesity Height: 5 ft 9 in Weight:: 210 lb Weight in Pounds: 210.0 lbs Body Mass Index (BMI): 31.0 Desired Body Weight: 200 Realistic Weight Goal (Loss of 1-2 lbs/week): 200 Nutritional Referral for Obesity: Yes - Physical Inactivity Physical Inactivity: Reg Exercise 30 min/day - Risk Stratification Risk Guidelines: Lowest Risk: Risk Factor for Smoking, Risk Factor for Hypertension, Risk Factor for Sedentary Lifestyle, Risk Factor for Depression, Moderate Risk: Risk Factor for Dyslipidemia, Risk Factor for Diabetes, Risk Factor for Obesity - For Smoking Smoking Risk Guidelines: Smoking Low Risk: None or quit greater than 6 months ago. Smoking Moderate Risk: Smoker or quit 6 months or less ago. Smoking High Risk: Smoker - For Dyslipidemia Dyslipidemia Risk Guidelines: Low Risk: Moderate Risk: High Risk: 15-25% fat 25.1-29% fat >/= 30% fat. <7% sat fat 7-9% sat fat >9% sat fat. <150 mg chol 150-299 mg chol >/= 300 mg chol. LDL <100 LDL 100-129 LDL >/= 130. Chol/HDL ratio <5.0 Chol/HDL ratio 5.0-6.0 Chol/HDL ratio >6.0. Triglycerides <100 Triglycerides 100-149 Triglycerides >/= 150 - For Diabetes Mellitus Diabetes Risk Guidelines: Diabetes Low Risk: HgA1c <6.5% and/or FBG <120. Diabetes Moderate Risk: HgA1c 6.6-7.9% and/or FBG 120-180. Diabetes High Risk: HgA1c >/= 8% and/or FBG >180 - For Obesity/Overweight Obesity/Overweight Risk Guidelines: Obesity Low Risk: BMI <25.0. Obesity Moderate Risk: BMI 25-29.9. Obesity High Risk: BMI >/= 30.0 - For Hypertension Hypertension Risk Guidelines: Hypertension Low Risk: Systolic <120 and Diastolic <80. Hypertension Moderate Risk: Systolic 120-139 and Diastolic 80-89. Hypertension High Risk: Systolic >/= 140 and D iastolic >/= 90 - For Sedentary Lifestyle Sedentary Lifestyle Risk Guidelines: Sedentary Lifestyle Low Risk: >/= 1,500 kcal/week. Sedentary Lifestyle Moderate Risk: 700-1,499 kcal/week. Sedentary Lifestyle High Risk: < 700 kcal/week - For Depression Depression Risk Guidelines: Depression Low Risk: Not clinically depressed. Depression Moderate Risk: Mildly depressed. Depression High Risk: Clinically depressed - Family History Family History: Family History (Last Updated 04/10/19 @ 09:38 by Sera Mendez) Mother Cancer Sister Cancer Brother Cancer Motivation - Motivation to Participate On a scale of 1 to 10, how prepared are you to commit to attending program?: 7
[2019-04-27 11:09] VITALS: BP 120/60; BP 140/72; BMI 31.0
== END | disposition home or self-care (01) ==
LOC: CR 10:01
PROVIDERS: Family Provider Family Medicine; PCP Family Medicine; Referring Provider Internal Medicine Cardiovascular Disease; Visit Provider Internal Medicine Cardiovascular Disease
DX: Z95.5 Presence of coronary angioplasty implant and graft (principal)

== ENCOUNTER 2019-06-09 10:15 | Outpatient (RCR) | payer MEDICARE, SELFPAY ==
[2019-04-27 11:09] VITALS: BMI 31.0
--- NOTE | 2019-05-26 11:13 | CR.ITP_ITS ---
Exercise - 30-day Assessment - Visit Date of Eval: 05/26/19 - evaulated on 04/27/2019 Session #:: 0 - Scheduled to start his CR on 05/29/2019 - Stages of Change Stages of Change:: Contemplate Nutrition - Initial Assessment - Program Goals Nutrition Program Goals: LDL <70. Total Cholesterol <200. HDL >45. Triglycerides <150. HgbA1C <7%. BMI <25 - Diabetes Do you monitor your blood sugar at home?: Yes Nutrition - 30-Day Assessment - Program Goals Nutrition Program Goals: LDL <70. Total Cholesterol <200. HDL >45. Triglycerides <150. HgbA1C <7%. BMI <25 - Visit Date of Eval: 05/26/19 - has not started CR, to start 05/29/2019. - Stages of Change Stages of Change:: Contemplate Tobacco - Initial Assessment - Program Goals Tobacco Program Goals: Complete smoking cessation. Attend education classes. Improve Knowledge Test score - Learning Barriers Learning Barriers: Vision, Ready to Learn Tobacco - 30-Day Assessment - Program Goals Tobacco Program Goals: Complete smoking cessation. Attend education classes. Improve Knowledge Test score - Stage of Change Stages of Change:: Contemplate Psychosocial - Initial Assess - Target Goals Target Goals: Assess presence or absence of depression. Using a valid screening tool, maximizes coping skills. Positive support system - Psychosocial Test Tool Used:: HANDS Depression Questionnaire - Assistive Devices Fall Risk Assessed:: Yes Psychosocial - 30-Day Assess - Target Goals Target Goals: Assess presence or absence of depression. Using a valid screening tool, maximizes coping skills. Positive support system - Psychosocial Test Tool Used:: HANDS Depression Questionnaire - Intervention PS - Interventions: Yes Attend Stress Management Classes, No Referral to Mental Health, No Referral to [facility] Case Management, No Referral to Physician, No Uses Stress Management Skills - Education Attended classes for:: Coping techniques, Signs & symptoms of depression, Stress management, Relaxation techniques - Patient/Program Goal Preventative Medication(s):: Aspirin, LOKI inhibitor, Clopidogrel, Beta kevin, Statin/lipid - Assistive Devices Assistive Devices:: None Fall Risk Assessed:: Yes
== END 2019-06-22 23:59 ==
LOC: CR 10:15
PROVIDERS: Family Provider Family Medicine; PCP Family Medicine; Referring Provider Internal Medicine Cardiovascular Disease; Visit Provider Internal Medicine Cardiovascular Disease
DX: I25.10 Atherosclerotic heart disease of native coronary artery without angina pectoris (principal); I77.810 Thoracic aortic ectasia; I65.23 Occlusion and stenosis of bilateral carotid arteries; E78.00 Pure hypercholesterolemia, unspecified; I10 Essential (primary) hypertension; Z95.1 Presence of aortocoronary bypass graft; Z95.5 Presence of coronary angioplasty implant and graft
CPT/HCPCS: 93798

== ENCOUNTER → 2019-06-26 | Outpatient (CLI) | payer MEDICARE, SELFPAY ==
[2019-06-22 13:36] VITALS: BMI 33.0
--- NOTE | 2019-06-26 08:09 | RAD_ITS ---
STUDY: X-RAY CHEST REASON FOR EXAM: Male, 79 years old. Shortness of breath. TECHNIQUE: PA and lateral views of the chest. COMPARISON: February 21, 2019. FINDINGS: The lungs are clear and expanded. There is no demonstrated pleural abnormality. Sternal cerclage wires are present from a prior sternotomy. The heart is borderline enlarged. Normal mediastinum and kayy. Normal visualized pulmonary arteries. There is atherosclerotic calcification of the aortic arch with tortuosity. There are diffuse degenerative changes of the visualized thoracic spine. There is degenerative osteoarthritis of the bilateral shoulders. There is no demonstrated abnormality of the visualized soft tissue structures of the upper abdomen. RAD/Chest PA and Lateral IMPRESSION: 1. Status post sternotomy. 2. Borderline cardiomegaly. 3. No acute pulmonary disease. 4. Stable degenerative changes of the thoracic spine and shoulders. Electronically Signed: Harshal Mccarty DO at 16:48 EST Tel [phone], Service support ,
[2019-06-26 10:45] LABS: Absolute Lymphocyte Count 1.69 X10^3/uL (0.83-4.51); Absolute Neutrophil Count 3.1 X10^3/uL (2.0-7.7); Basophil# 0.05 X10^3/uL; Basophil% 0.9 % (0-1); Eosinophil# 0.33 X10^3/uL; Eosinophils% 5.7 % (0-5); Hematocrit 42.4 % (40-54); Lymphocyte # 1.69 X10^3/ul (4.0); Lymphocyte % 29.1 % (19-41); Mean Platelet Vol. 10.9 fl (6.2-12.0); Monocyte# 0.63 X10^3/uL; Monocyte% 10.9 % (0-10); NRBC Flagged by Analyzer 0 % (0-5); Neutrophil # 3.08 X10^3/uL (2.7-7.7); Neutrophil % 53.1 % (47-70); Platelet Count 162 K/mm3 (150-450); RBC Distribution Width CV 14.1 % (11.6-14.6); RBC Distribution Width SD 49.9 fl (35.1-43.9); Red Blood Count 4.37 M/mm3 (4.6-6.2); White Blood Count 5.8 K/mm3 (4.4-11.0)
== END | disposition home or self-care (01) ==
LOC: MTLAB 08:07
PROVIDERS: Family Provider Family Medicine; PCP Family Medicine; Referring Provider Internal Medicine Cardiovascular Disease; Visit Provider Internal Medicine Cardiovascular Disease
DX: I25.10 Atherosclerotic heart disease of native coronary artery without angina pectoris (principal); Z95.5 Presence of coronary angioplasty implant and graft; Z95.1 Presence of aortocoronary bypass graft; I77.810 Thoracic aortic ectasia; E78.00 Pure hypercholesterolemia, unspecified; I10 Essential (primary) hypertension
CPT/HCPCS: 36415; 71046; 83880; 85025

== ENCOUNTER 2019-06-27 06:36 | Outpatient (RCR) | payer SELFPAY ==
[2018-07-01 12:12] VITALS: BMI 33.2
[2019-06-22 13:36] VITALS: BMI 33.0
== END 2019-07-22 23:59 ==
LOC: CR 06:36
PROVIDERS: Family Provider Family Medicine; PCP Family Medicine; Referring Provider Family Medicine; Visit Provider Family Medicine
DX: Z00.00 Encounter for general adult medical examination without abnormal findings (principal)

== ENCOUNTER → 2019-08-18 14:48 | Outpatient (CLI) | payer MEDICARE, SELFPAY ==
[2019-08-18 14:03] VITALS: BMI 33.0
--- NOTE | 2019-08-18 14:51 | RAD_ITS ---
STUDY: X-RAY CHEST REASON FOR EXAM: Male, 79 years old. SHORT OF BREATH TECHNIQUE: PA and lateral views of the chest. COMPARISON: 06/26/2019 FINDINGS: The lungs are clear and expanded. There is no demonstrated pleural abnormality. Sternal cerclage wires are present from a prior sternotomy. Normal mediastinum and kayy. Normal visualized pulmonary arteries. There is atherosclerotic calcification of the aortic arch with tortuosity. There is demineralization of the osseous structures. There is degenerative osteoarthritis of the bilateral shoulders. There is no demonstrated abnormality of the visualized soft tissue structures of the upper abdomen. RAD/Chest PA and Lateral IMPRESSION: No acute cardiopulmonary disease. Electronically Signed: Florence Buchanan MD at 1:41 EST , Service support ,
[2019-08-18 15:28] LABS: Absolute Lymphocyte Count 2.11 X10^3/uL (0.83-4.51); Absolute Neutrophil Count 4.9 X10^3/uL (2.0-7.7); Basophil# 0.05 X10^3/uL; Basophil% 0.6 % (0-1); Eosinophil# 0.34 X10^3/uL; Eosinophils% 4.2 % (0-5); Lymphocyte # 2.11 X10^3/ul (4.0); Lymphocyte % 26.2 % (19-41); Mean Corp Hgb Conc 33.3 g/dL (32-36); Mean Corpuscular Hgb 32.8 pg (27.0-32.0); Mean Corpuscular Volume 98.4 fL (80-94); Mean Platelet Vol. 10.7 fl (6.2-12.0); Monocyte# 0.66 X10^3/uL; Monocyte% 8.2 % (0-10); NRBC Flagged by Analyzer 0 % (0-5); Neutrophil # 4.87 X10^3/uL (2.7-7.7); Neutrophil % 60.6 % (47-70); Platelet Count 190 K/mm3 (150-450); RBC Distribution Width CV 13.7 % (11.6-14.6); RBC Distribution Width SD 49.7 fl (35.1-43.9); Red Blood Count 3.66 M/mm3 (4.6-6.2); White Blood Count 8.1 K/mm3 (4.4-11.0)
[2019-08-18 16:30] LABS: BNP,B-Type NATRIURETIC PEPTIDE 135.6 pg/mL (0-100)
[2019-08-18 17:01] LABS: Anion Gap 6 (5-15); BUN 30 mg/dL (7-18); Calcium,Total 8.7 mg/dL (8.5-10.1); Chloride 104 mmol/L (98-107); EST Glomerular Filtration Rate 48 mL/min (>60); Est Glom Filt Rate - Afr Amer 58 mL/min (>60); Glucose 189 mg/dL (74-106); Potassium 4.3 mmol/L (3.5-5.1); Sodium Level 136 mmol/L (136-145); T4 Free Direct 0.99 ng/dL (0.76-1.46); Thyroid Stim Hormone (TSH) 1.82 uIU/mL (0.358-3.74)
== END ==
PROVIDERS: Family Provider Family Medicine; PCP Family Medicine; Referring Provider Nurse Practitioner Family; Visit Provider Nurse Practitioner Family
DX: R05 Cough (principal); I25.10 Atherosclerotic heart disease of native coronary artery without angina pectoris; I10 Essential (primary) hypertension; I65.23 Occlusion and stenosis of bilateral carotid arteries; R06.09 Other forms of dyspnea; Z95.5 Presence of coronary angioplasty implant and graft; Z95.1 Presence of aortocoronary bypass graft
CPT/HCPCS: 36415; 71046; 80048; 83880; 84439; 84443; 85025; 87070; 87205

== ENCOUNTER → 2019-09-26 | Outpatient (CLI) | payer MEDICARE, SELFPAY ==
[2019-08-18 14:03] VITALS: BMI 33.0
[2019-09-26 12:45] LABS: ALB/GLOB Ratio 1.1 RATIO (0.9-2.4); AST(SGOT) 20 U/L (15-37); Alanine Aminotransfer ALT/SGPT 27 U/L (16-61); Albumin, Serum 3.7 g/dL (3.2-5.0); Alkaline Phosphatase 127 U/L (45-117); Anion Gap 7 (5-15); BUN 30 mg/dL (7-18); BUN/Creat Ratio 20.3 RATIO (10-20); Calcium,Total 9.3 mg/dL (8.5-10.1); Chloride 109 mmol/L (98-107); Creatinine, Serum 1.48 mg/dL (0.70-1.30); EST Glomerular Filtration Rate 49 mL/min (>60); Est Glom Filt Rate - Afr Amer 59 mL/min (>60); Globulin 3.3 g/dL (2.2-4.2); Glucose 198 mg/dL (74-106); Potassium 4.4 mmol/L (3.5-5.1); Sodium Level 140 mmol/L (136-145)
[2019-09-26 12:52] LABS: Hemoglobin A1c 8.5 % (4.2-6.3)
== END | disposition home or self-care (01) ==
LOC: MFPLAB 10:51
PROVIDERS: PCP Family Medicine; Referring Provider Family Medicine; Visit Provider Family Medicine
DX: E11.9 Type 2 diabetes mellitus without complications (principal)
CPT/HCPCS: 36415; 80053; 83036

== ENCOUNTER → 2019-09-27 13:57 | Outpatient (CLI) | payer MEDICARE, SELFPAY ==
[2019-08-18 14:03] VITALS: BMI 33.0
== END ==
PROVIDERS: PCP Family Medicine; Referring Provider Family Medicine; Visit Provider Family Medicine
DX: R05 Cough (principal)
CPT/HCPCS: 87070; 87205

== ENCOUNTER → 2019-10-03 | Outpatient (CLI) | payer MEDICARE, SELFPAY ==
[2019-08-18 14:03] VITALS: BMI 33.0
--- NOTE | 2019-10-03 08:45 | RAD_ITS ---
STUDY: X-RAY - ESOPHAGUS (BARIUM SWALLOW) WITH FLUOROSCOPY REASON FOR EXAM: Male, 79 years old. DYSPHAGIA; -- PROBLEMS WITH SOLIDS, TABLETS FEELING STUCK IN THROAT X 6 MOs TECHNIQUE: 13 view(s) of the esophagus were obtained following swallowing of barium. FLUOROSCOPY TIME (if supplied): (0:24) minutes/seconds COMPARISON: None. FINDINGS: There is no demonstrated esophageal foreign body. There is no demonstrated stricture or mucosal abnormality. Normal gastroesophageal junction, without a demonstrated hiatal hernia. The patient ingested a 12 mm tablet of barium without any difficulty. There is atherosclerotic calcification of the aortic arch with tortuosity of the descending aorta. Normal visualized pulmonary parenchyma. There are degenerative changes of the visualized thoracic spine. RAD/Esophagus Only IMPRESSION: Normal plain film x-ray examination (barium swallow) of the esophagus. Electronically Signed: Ludin Askew, at 9:46 EST , Service support ,
== END | disposition home or self-care (01) ==
LOC: RAD 08:29
PROVIDERS: PCP Family Medicine; Referring Provider Family Medicine; Visit Provider Family Medicine
DX: R13.10 Dysphagia, unspecified (principal)
CPT/HCPCS: 74220

== ENCOUNTER → 2020-01-19 | Outpatient (CLI) | payer MEDICARE, SELFPAY ==
[2019-10-23 14:22] VITALS: BMI 33.3
--- NOTE | 2020-01-19 10:47 | RAD_ITS ---
STUDY: X-RAY - RIGHT SHOULDER REASON FOR EXAM: Male, 80 years old. Right shoulder pain TECHNIQUE: 4 view(s) of the shoulder. COMPARISON: None. FINDINGS: There is moderate degenerative arthrosis of the glenohumeral articulation. Normal acromioclavicular joint. Normal acromion. Normal humeral head and visualized proximal humerus. The soft tissue structures are unremarkable. Normal visualized pulmonary apex. 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 Electronically Signed: Ludin Askew, at 11:16 EDT , Service support ,
== END | disposition home or self-care (01) ==
LOC: MTRAD 10:46
PROVIDERS: PCP Family Medicine; Referring Provider Family Medicine; Visit Provider Family Medicine
DX: M25.511 Pain in right shoulder (principal)
CPT/HCPCS: 73030

== ENCOUNTER → 2020-02-20 | Outpatient (CLI) | payer MEDICARE, SELFPAY ==
[2019-10-23 14:22] VITALS: BMI 33.3
--- NOTE | 2020-02-20 14:03 | VDLE_ITS ---
Reason For Study: edema RIGHT LEFT GSV is normal. GSV is normal. CFV is compressible, spontaneous, phasic, CFV is compressible, spontaneous, phasic, competent and demonstrates normal competent, and demonstrates normal augmentation. augmentation. FV is compressible, spontaneous, phasic, FV is compressible, spontaneous, phasic, competent and demonstrates normal competent and demonstrates normal augmentation. augmentation. POP V is compressible, spontaneous, phasic, POP V is compressible, spontaneous, phasic, competent and demonstrates normal competent and demonstrates normal augmentation. augmentation. T/P Trunk is compressible. T/P Trunk is compressible. PTV is compressible. PTV is compressible. RT PerV is compressible. LT PerV is compressible. Procedure Soleus V is dilated and noncompressible. Exam performed in department. The exam was diagnostic. A preliminary report was called and/or faxed to Dr. Scott. Interpretation Summary Acute deep vein thrombosis is noted in the left soleus vein. The remainder of the left lower extremity deep venous system is patent and compressible. Deep veins of the right lower extremity are patent and compressible segmentally. There is no evidence of right lower extremity deep vein thrombosis. Valvular competence appears intact within the proximal deep venous systems bilaterally. The great saphenous veins appear bilaterally patent and compressible segmentally. Ordering Physician: Angel Scott Performed By: Dexter Anglin RVLazarus
[2020-02-20 15:56] LABS: Anion Gap 8 (5-15); BUN 29 mg/dL (7-18); BUN/Creat Ratio 22.1 RATIO (10-20); Calcium,Total 8.9 mg/dL (8.5-10.1); Chloride 106 mmol/L (98-107); Creatinine, Serum 1.31 mg/dL (0.70-1.30); EST Glomerular Filtration Rate 56 mL/min (>60); Est Glom Filt Rate - Afr Amer 68 mL/min (>60); Glucose 90 mg/dL (74-106); Potassium 4.3 mmol/L (3.5-5.1); Sodium Level 138 mmol/L (136-145)
[2020-02-20 16:19] LABS: BNP,B-Type NATRIURETIC PEPTIDE 198.5 pg/mL (0-100)
== END | disposition home or self-care (01) ==
LOC: CVS 14:02
PROVIDERS: PCP Family Medicine; Referring Provider Family Medicine; Visit Provider Family Medicine
DX: R60.0 Localized edema (principal)
CPT/HCPCS: 36415; 80048; 83880; 93970

== ENCOUNTER → 2020-03-08 | Outpatient (CLI) | payer MEDICARE, SELFPAY ==
[2019-10-23 14:22] VITALS: BMI 33.3
--- NOTE | 2020-03-08 14:05 | CT_ITS ---
STUDY: CTA CHEST REASON FOR EXAM: Male, 80 years old. CAD,COPD, CABG,STENTS,STEMI RADIATION DOSAGE (If Supplied By Facility): CTDIvol = ( 17.15 ) mGy, DLP = ( 537.45 ) mGycm TECHNIQUE: The examination was performed with the intravenous administration of IV 100mL Isovue-370. Post-processing of the angiographic images was performed, with multiplanar reformation and 3D reconstruction. Individualized dose optimization techniques were used for this CT. COMPARISON: Comparison is made with prior examination January 28, 2018. FINDINGS: Normal enhancement of the main pulmonary artery and right and left pulmonary arteries. Normal enhancement of the bilateral peripheral pulmonary arteries. There is no demonstrated pulmonary embolism. There is atherosclerotic calcification of the aortic arch with tortuosity. 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 There is no demonstrated aortic dissection. Sternal cerclage wires and vascular clips are present from a prior sternotomy and coronary artery bypass graft procedure (CABG). There are calcifications of the coronary arteries. Normal mediastinum. Normal hilar regions. Normal visualized trachea and bronchi. Hyperinflation. Stable increased markings at the lung bases suggestive of mild degree of bibasilar pulmonary scarring. Normal pleura. Normal chest wall structures. There are degenerative changes of thoracic spine. Small hiatal hernia. CT/CTA Chest W/WO Contrast IMPRESSION: Hyperinflation. Mild degree of scarring at the lung bases. 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 Coronary artery calcification. Electronically Signed: Ludin Askew, at 14:58 EDT , Service support ,
== END | disposition home or self-care (01) ==
LOC: CT 14:03
PROVIDERS: PCP Family Medicine; Referring Provider Family Medicine; Visit Provider Family Medicine
DX: R06.00 Dyspnea, unspecified (principal)
CPT/HCPCS: 71275; Q9967

== ENCOUNTER → 2020-04-15 | Outpatient (CLI) | payer MEDICARE, SELFPAY ==
[2019-10-23 14:22] VITALS: BMI 33.3
== END | disposition home or self-care (01) ==
LOC: LABSPEC 13:46
PROVIDERS: PCP Family Medicine; Referring Provider Family Medicine; Visit Provider Family Medicine
DX: N50.811 Right testicular pain (principal)
CPT/HCPCS: 87086; 87088

== ENCOUNTER → 2020-05-17 | Outpatient (CLI) | payer MEDICARE, SELFPAY ==
[2019-10-23 14:22] VITALS: BMI 33.3
--- NOTE | 2020-05-17 09:49 | PFT ---
INTRODUCTION: The patient is an 80-year-old male that presents for pulmonary function studies secondary to a diagnosis of shortness of breath. Respiratory therapy reports good patient effort. Bronchodilators were used during testing. INTERPRETATION: Forced expiration spirometry demonstrates the presence of a mild large airways obstructive ventilatory defect. There was no significant response to aerosolized bronchodilators. Spirograms are of good quality and plateau gradually indicating slow emptying of the lungs. Body plethysmography was performed and reveals lung volumes to be within normal limits. Diffusing capacity by single breath CO was within normal limits. IMPRESSION: Irreversible mild large airways obstructive ventilatory defect with preserved lung volumes and diffusing capacity.
== END | disposition home or self-care (01) ==
LOC: PSN 06:51
PROVIDERS: PCP Family Medicine; Referring Provider Family Medicine; Visit Provider Family Medicine
DX: R06.02 Shortness of breath (principal)
CPT/HCPCS: 94060; 94726; 94729

== ENCOUNTER → 2020-11-15 12:28 | Outpatient (CLI) | payer MEDICARE, SELFPAY ==
[2020-11-15 11:43] VITALS: BMI 33.0
[2020-11-15 12:50] LABS: Absolute Lymphocyte Count 2.02 X10^3/uL (0.83-4.51); Absolute Neutrophil Count 4.8 X10^3/uL (2.0-7.7); Basophil# 0.05 X10^3/uL; Basophil% 0.6 % (0-1); Eosinophils% 3.7 % (0-5); Hematocrit 48.5 % (40-54); Hemoglobin 15.9 g/dL (13.0-16.5); Lymphocyte # 2.02 X10^3/ul (4.0); Lymphocyte % 25.1 % (19-41); Mean Corp Hgb Conc 32.8 g/dL (32-36); Mean Corpuscular Hgb 32.2 pg (27.0-32.0); Mean Corpuscular Volume 98.2 fL (80-94); Mean Platelet Vol. 11.1 fl (6.2-12.0); Monocyte# 0.89 X10^3/uL; Monocyte% 11.1 % (0-10); NRBC Flagged by Analyzer 0 % (0-5); Neutrophil # 4.76 X10^3/uL (2.7-7.7); Neutrophil % 59.3 % (47-70); Platelet Count 171 K/mm3 (150-450); RBC Distribution Width CV 13.1 % (11.6-14.6); RBC Distribution Width SD 46.6 fl (35.1-43.9); Red Blood Count 4.94 M/mm3 (4.6-6.2)
[2020-11-15 13:20] LABS: Anion Gap 7 (5-15); BUN 37 mg/dL (7-18); BUN/Creat Ratio 23.4 RATIO (10-20); Calcium,Total 9.2 mg/dL (8.5-10.1); Chloride 99 mmol/L (98-107); Creatinine, Serum 1.58 mg/dL (0.70-1.30); EST Glomerular Filtration Rate 45 mL/min (>60); Est Glom Filt Rate - Afr Amer 54 mL/min (>60); Glucose 178 mg/dL (74-106); Potassium 4.3 mmol/L (3.5-5.1); Sodium Level 137 mmol/L (136-145)
== END ==
PROVIDERS: PCP Family Medicine; Referring Provider Physician Assistant Medical; Visit Provider Physician Assistant Medical
DX: I25.10 Atherosclerotic heart disease of native coronary artery without angina pectoris (principal); I35.0 Nonrheumatic aortic (valve) stenosis; R06.00 Dyspnea, unspecified
CPT/HCPCS: 36415; 80048; 83880; 85025

== ENCOUNTER → 2020-11-19 12:43 | Outpatient (CLI) | payer MEDICARE, SELFPAY ==
[2020-11-15 11:43] VITALS: BMI 33.0
--- NOTE | 2020-11-19 12:45 | ECHOCS_ITS ---
Reason For Study: Dyspnea/SOB Procedure This was a 2D Doppler, Color Flow transthoracic echocardiogram. The study was technically difficult. Contrast injection was performed. Exam performed in department. Left Ventricle Normal LV size. Mild segmental systolic dysfunction (see wall motion). The estimated ejection fraction is 45 %. Infero-Basal: Akinetic. Mid-Anterior : Hypokinetic. Mid-Lateral : Akinetic. Mid- Posterior: Hypokinetic. Anterior [place] : Akinetic. Lateral [place] : Akinetic. Right Ventricle Normal RV size. Normal systolic function. Atria The left atrium is mildly enlarged. Normal right atrium. No doppler evidence for ASD. Mitral Valve There is no mitral annular calcification. Normal mitral valve. Mild (1+) mitral valve insufficiency. Tricuspid Valve Normal tricuspid valve. Trivial tricuspid valve insufficiency. Unable to estimate RV systolic pressure/pulmonary artery pressure due to technically difficult study. Aortic Valve Trisinus/trileaflet aortic valve. Severe diffuse aortic valve thickening. Severe diffuse aortic valve calcification. Severe aortic stenosis. Mild (1+) aortic valve insufficiency. Pulmonic Valve The pulmonic valve is not well visualized. Moderate (2+) eccentric pulmonic valve insufficiency. Great Vessels Mildly dilated aortic root. Pericardium/Pleural No pericardial effusion. Medication 22 gauge I.V. with prn adaptor inserted into right arm. Diluted definity 6ml given slow IV push to enhance endocardial definition. MMode/2D Measurements & Calculations LVIDd: 4.8 cm IVSd: 1.8 cm LVOT diam: 2.0 cm LVIDs: 4.3 cm LVPWd: 1.1 cm FS: 10.6 % LVOT area: 3.0 cm2 Ao root diam: 4.3 cm LAV(MOD-bp): 70.7 ml LA A4 area: 21.1 cm2 LA dimension: 4.2 cm LAV(MOD-bp) Indexed: 32.6 ml/m2 LAV(MOD-sp2): 73.7 ml LAV(MOD-sp4): 62.2 ml RA A4 area: 16.9 cm2 Time Measurements MV dec time: 0.19 sec Doppler Measurements & Calculations MV E max jeromy: 123.3 cm/sec Lat Peak E' Jeromy: 9.0 cm/sec Med Peak E' Jeromy: 6.1 cm/sec MV A max jeromy: 56.9 cm/sec E/E' lat: 13.6 E/E' med: 20.3 MV E/A: 2.2 MV V2 max: 133.5 cm/sec MV P1/2t max jeromy: 133.5 cm/sec Ao V2 max: 326.2 cm/sec MV max P.1 mmHg MV P1/2t: 89.5 msec Ao max P.7 mmHg MV V2 mean: 58.9 cm/sec MV dec slope: 437.0 cm/sec2 Ao V2 mean: 212.3 cm/sec MV mean P.8 mmHg Ao mean P.3 mmHg MV V2 VTI: 33.9 cm MVA(P1/2t): 2.5 cm2 Ao V2 VTI: 73.9 cm MVA(VTI): 1.3 cm2 CONCETTA(I,D): 0.62 cm2 CONCETTA(V,D): 0.62 cm2 AI max jeromy: 345.1 cm/sec LV V1 max: 67.2 cm/sec SV(LVOT): 45.7 ml AI max P.7 mmHg LV V1 max P.8 mmHg AI dec slope: 251.9 cm/sec2 LV V1 mean P.90 mmHg AI P1/2t: 401.3 msec LV V1 mean: 44.4 cm/sec LV V1 VTI: 15.1 cm PA V2 max: 104.0 cm/sec ECHO/Echo Complete W/ Contrast Interpretation Summary The study was technically difficult. Contrast injection was performed. Mild segmental systolic dysfunction (see wall motion). The estimated ejection fraction is 45 %. The left atrium is mildly enlarged. Mild (1+) mitral valve insufficiency. Trivial tricuspid valve insufficiency. Severe aortic stenosis. Mild (1+) aortic valve insufficiency. Moderate (2+) eccentric pulmonic valve insufficiency. Mildly dilated aortic root. Unable to estimate RV systolic pressure/pulmonary artery pressure due to techni angel difficult study. Transmitral diastolic flow velocities suggest diastolic dysfunction (pseudonorm al pattern). Ordering Physician: Roselyn Beard Referring Physician: Angel Scott Performed By: Maximino Camarillo RCS
== END ==
PROVIDERS: PCP Family Medicine; Referring Provider Physician Assistant Medical; Visit Provider Physician Assistant Medical
DX: R06.02 Shortness of breath (principal); R06.00 Dyspnea, unspecified
CPT/HCPCS: 93306; Q9957; A4216; C8929

== ENCOUNTER → 2020-12-24 | Outpatient (CLI) | payer MEDICARE, SELFPAY ==
[2020-12-11 13:42] VITALS: BMI 32.8
== END | disposition home or self-care (01) ==
LOC: LABSPEC 10:35
PROVIDERS: PCP Family Medicine; Referring Provider Dermatology; Visit Provider Dermatology
DX: T81.40XA Infection following a procedure, unspecified, initial encounter (principal)
CPT/HCPCS: 87070; 87077; 87186; 87205

== ENCOUNTER → 2021-07-01 09:53 | Outpatient (CLI) | payer MEDICARE, SELFPAY ==
[2021-07-01 12:32] LABS: ALB/GLOB Ratio 0.9 RATIO (0.9-2.4); AST(SGOT) 30 U/L (15-37); Alanine Aminotransfer ALT/SGPT 36 U/L (16-61); Albumin, Serum 3.5 g/dL (3.2-5.0); Alkaline Phosphatase 125 U/L (45-117); Anion Gap 4 (5-15); BUN 30 mg/dL (7-18); Calcium,Total 9.2 mg/dL (8.5-10.1); Chloride 106 mmol/L (98-107); Cholesterol 93 mg/dL (200); EST Glomerular Filtration Rate 48 mL/min (>60); Est Glom Filt Rate - Afr Amer 58 mL/min (>60); Globulin 3.7 g/dL (2.2-4.2); Glucose 122 mg/dL (74-106); High Density Lipoprotein 34 mg/dL; Potassium 4.7 mmol/L (3.5-5.1); Protein, Total 7.2 g/dL (6.4-8.2); Sodium Level 137 mmol/L (136-145); Triglycerides 151 mg/dL; Very Low Density Lipoprotein 30 mg/dL (5-40)
[2021-07-01 12:50] LABS: Microalbumin,Random Urine < 5.0 mg/L (NO RANGE EST.)
== END ==
PROVIDERS: PCP Family Medicine; Referring Provider Nurse Practitioner Family; Visit Provider Nurse Practitioner Family
DX: E11.65 Type 2 diabetes mellitus with hyperglycemia (principal); Z79.4 Long term (current) use of insulin
CPT/HCPCS: 36415; 80053; 80061; 82043; 82570

== ENCOUNTER → 2021-07-15 | Outpatient (CLI) | payer MEDICARE, SELFPAY | END | disposition home or self-care (01) | PROVIDERS: Visit Provider Family Medicine | DX: J06.9 Acute upper respiratory infection, unspecified (principal); R50.9 Fever, unspecified | CPT/HCPCS: 87633; 87635; U0005; U0003 ==

== ENCOUNTER → 2021-08-19 07:33 | Outpatient (CLI) | payer MEDICARE, SELFPAY | PROVIDERS: PCP Family Medicine; Referring Provider Family Medicine; Visit Provider Family Medicine | DX: Z11.52 Encounter for screening for COVID-19 (principal) | CPT/HCPCS: 36415; 86769 ==

== ENCOUNTER 2021-09-03 16:41 | Outpatient (CLI) | payer MEDICARE, SELFPAY | END 2021-09-03 23:59 | disposition short-term general hospital (02) | PROVIDERS: PCP Family Medicine; Referring Provider Family Medicine; Visit Provider Family Medicine | DX: U07.1 COVID-19 (principal) | CPT/HCPCS: 87635; U0003; U0005 ==

== ENCOUNTER 2021-10-10 11:41 | Outpatient (CLI) | payer MEDICARE, SELFPAY ==
[2021-10-10 14:55] LABS: Absolute Lymphocyte Count 2.03 X10^3/uL (0.83-4.51); Absolute Neutrophil Count 3.7 X10^3/uL (2.0-7.7); Basophil# 0.07 X10^3/uL; Eosinophil# 0.35 X10^3/uL; Hemoglobin 15.8 g/dL (13.0-16.5); Lymphocyte # 2.03 X10^3/ul (0.83-4.51); Lymphocyte % 29.2 % (19-41); Mean Corp Hgb Conc 32.9 g/dL (32-36); Mean Corpuscular Hgb 32.5 pg (27.0-32.0); Mean Corpuscular Volume 98.8 fL (80-94); Mean Platelet Vol. 11.1 fl (6.2-12.0); Monocyte# 0.77 X10^3/uL; Monocyte% 11.1 % (0-10); NRBC Flagged by Analyzer 0 % (0-5); Neutrophil # 3.72 X10^3/uL (2.7-7.7); Neutrophil % 53.4 % (47-70); Platelet Count 171 K/mm3 (150-450); RBC Distribution Width CV 13.6 % (11.6-14.6); RBC Distribution Width SD 49.9 fl (35.1-43.9); Red Blood Count 4.86 M/mm3 (4.6-6.2)
[2021-10-10 15:22] LABS: ALB/GLOB Ratio 1.1 RATIO (0.9-2.4); AST(SGOT) 25 U/L (15-37); Alanine Aminotransfer ALT/SGPT 26 U/L (16-61); Albumin, Serum 3.8 g/dL (3.2-5.0); Alkaline Phosphatase 109 U/L (45-117); Anion Gap 8 (5-15); BUN 32 mg/dL (7-18); BUN/Creat Ratio 21.9 RATIO (10-20); Calcium,Total 9.5 mg/dL (8.5-10.1); Chloride 104 mmol/L (98-107); Cholesterol 101 mg/dL (200); Creatinine, Serum 1.46 mg/dL (0.70-1.30); EST Glomerular Filtration Rate 49 mL/min (>60); Est Glom Filt Rate - Afr Amer 60 mL/min (>60); Globulin 3.6 g/dL (2.2-4.2); Glucose 213 mg/dL (74-106); High Density Lipoprotein 33 mg/dL; Potassium 4.8 mmol/L (3.5-5.1); Protein, Total 7.4 g/dL (6.4-8.2); Sodium Level 134 mmol/L (136-145); Triglycerides 230 mg/dL; Very Low Density Lipoprotein 46 mg/dL (5-40)
[2021-10-10 15:23] LABS: Hemoglobin A1c 7.3 % (3.8-5.6)
== END 2021-10-10 23:59 | disposition home or self-care (01) ==
LOC: MFPLAB 11:46
PROVIDERS: PCP Family Medicine; Referring Provider Family Medicine; Visit Provider Family Medicine
DX: I10 Essential (primary) hypertension (principal); E11.65 Type 2 diabetes mellitus with hyperglycemia; E78.5 Hyperlipidemia, unspecified
CPT/HCPCS: 36415; 80053; 80061; 83036; 85025

== ENCOUNTER → 2021-12-17 | Outpatient (CLI) | payer MEDICARE, SELFPAY ==
--- NOTE | 2021-12-17 11:14 | RAD_ITS ---
STUDY: X-RAY CHEST REASON FOR EXAM: Male, 81 years old. ACUTE BRONCHITIS TECHNIQUE: PA and lateral views of the chest. COMPARISON: August 18, 2019 chest x-ray FINDINGS: Interstitial markings are minimally prominent. Stable since prior study. There is no demonstrated pleural abnormality. Sternal cerclage wires are present from a prior sternotomy. There is a visualized coronary stent. Persistent mild prominence of the right hilum greater than left suggesting possible pulmonary arterial enlargement. Stable since prior study. Normal visualized pulmonary arteries. Normal visualized aortic arch and descending thoracic aorta. Normal visualized thoracic spine. Normal visualized ribs, clavicles, and shoulders. There is no demonstrated abnormality of the visualized soft tissue structures of the upper abdomen. RAD/Chest PA and Lateral IMPRESSION: Stable chest status post sternotomy and coronary stent. Prominence of the pulmonary artery suggesting possible underlying pulmonary arterial hypertension. No visualized acute focal infiltrate. Electronically Signed: Amada Veloz MD at 0:12 EDT ,
== END | disposition home or self-care (01) ==
LOC: MTRAD 11:13
PROVIDERS: PCP Family Medicine; Referring Provider Family Medicine; Visit Provider Family Medicine
DX: J20.9 Acute bronchitis, unspecified (principal)
CPT/HCPCS: 71046

== ENCOUNTER → 2022-03-19 | Outpatient (CLI) | payer MEDICARE, SELFPAY ==
[2022-03-19 13:37] LABS: Bacteria 0 SEEN /hpf (None Seen); Mucous, Urine 0 SEEN /hpf (<or=2+); Red Blood Cells-Urine 0 SEEN /hpf (0-5); Squamous Epithelial Cells - UA 0 SEEN /hpf (0-5)
[2022-03-19 14:57] LABS: Absolute Lymphocyte Count 1.59 X10^3/uL (0.83-4.51); Absolute Neutrophil Count 4.4 X10^3/uL (2.0-7.7); Basophil# 0.06 X10^3/uL; Basophil% 0.9 % (0-1); Eosinophil# 0.19 X10^3/uL; Eosinophils% 2.7 % (0-5); Hematocrit 41.9 % (40-54); Hemoglobin 14.2 g/dL (13.0-16.5); Lymphocyte # 1.59 X10^3/ul (0.83-4.51); Lymphocyte % 22.7 % (19-41); Mean Corp Hgb Conc 33.9 g/dL (32-36); Mean Corpuscular Hgb 33.2 pg (27.0-32.0); Mean Corpuscular Volume 97.9 fL (80-94); Mean Platelet Vol. 11.4 fl (6.2-12.0); Monocyte# 0.71 X10^3/uL; Monocyte% 10.1 % (0-10); NRBC Flagged by Analyzer 0 % (0-5); Neutrophil # 4.43 X10^3/uL (2.7-7.7); Neutrophil % 63.3 % (47-70); Platelet Count 153 K/mm3 (150-450); RBC Distribution Width CV 13.2 % (11.6-14.6); RBC Distribution Width SD 47.7 fl (35.1-43.9); Red Blood Count 4.28 M/mm3 (4.6-6.2)
[2022-03-19 15:02] LABS: Color, Urine Straw (Yellow); Glucose, Dipstick 1000 mg/dl (Normal); Ketone-Dipstick Negative (Negative); Leukocyte Esterase-Dipstick Negative /ul (Negative); Nitrite-Dipstick Negative (Negative); Occult Blood-Urine Negative /ul (Negative); Protein-Dipstick Negative (Negative); Urine Bilirubin Dipstick Negative (Negative); Urine Clarity Clear (Clear); Urine Urobilinogen Normal (Normal)
[2022-03-19 15:13] LABS: Vitamin B12 549 pg/mL (211-911); Vitamin D,25 Hydroxy 38.5 ng/mL
[2022-03-19 15:16] LABS: White Blood Cells 0-5 SEEN /hpf (0-5)
[2022-03-19 15:17] LABS: Hemoglobin A1c 7.7 % (3.8-5.6)
[2022-03-19 15:22] LABS: ALB/GLOB Ratio 1.1 RATIO (0.9-2.4); AST(SGOT) 22 U/L (15-37); Alanine Aminotransfer ALT/SGPT 27 U/L (16-61); Albumin, Serum 3.6 g/dL (3.2-5.0); Alkaline Phosphatase 86 U/L (45-117); Anion Gap 9 (5-15); BUN 37 mg/dL (7-18); BUN/Creat Ratio 25.9 RATIO (10-20); Calcium,Total 9.1 mg/dL (8.5-10.1); Chloride 105 mmol/L (98-107); Cholesterol 85 mg/dL (200); Creatinine, Serum 1.43 mg/dL (0.70-1.30); EST Glomerular Filtration Rate 50 mL/min (>60); Est Glom Filt Rate - Afr Amer 61 mL/min (>60); Globulin 3.3 g/dL (2.2-4.2); Glucose 181 mg/dL (74-106); High Density Lipoprotein 30 mg/dL; Phosphorus 3.3 mg/dL (2.5-4.9); Potassium 4.6 mmol/L (3.5-5.1); Protein, Total 6.9 g/dL (6.4-8.2); Sodium Level 136 mmol/L (136-145); Thyroid Stim Hormone (TSH) 1.79 uIU/mL (0.358-3.74); Triglycerides 177 mg/dL; Very Low Density Lipoprotein 35 mg/dL (5-40)
[2022-03-19 15:27] LABS: PTHIN 78.3 pg/mL (18.4-80.1)
[2022-03-19 15:36] LABS: Microalbumin,Random Urine 7.1 mg/L (NO RANGE EST.); Microalbumin:Creatinine Ratio 22.4 mg/g CRE (<30 mg/g CRE); Protein, Urine (Random) < 6.0 mg/dL (<11.9)
[2022-03-26 17:54] LABS: VITAMIN B6 19.3 ug/L (3.4-65.2); Vitamin B1, Thiamine 205.4 nmol/L (66.5-200.0)
== END | disposition home or self-care (01) ==
LOC: MTLAB 11:55
PROVIDERS: PCP Family Medicine; Referring Provider Family Medicine; Visit Provider Family Medicine
DX: E11.22 Type 2 diabetes mellitus with diabetic chronic kidney disease (principal); E11.49 Type 2 diabetes mellitus with other diabetic neurological complication; E11.69 Type 2 diabetes mellitus with other specified complication; N18.30 Chronic kidney disease, stage 3 unspecified; E55.9 Vitamin D deficiency, unspecified; E53.9 Vitamin B deficiency, unspecified
CPT/HCPCS: 36415; 80053; 80061; 81001; 82043; 82306; 82570; 82607; 83036; 83970; 84100; 84156; 84207; 84425; 84443; 85025

== ENCOUNTER → 2022-04-14 | Outpatient (CLI) | payer MEDICARE, SELFPAY ==
--- NOTE | 2022-04-14 10:12 | VDLE_ITS ---
[id number] VL^VDUL^Venous Duplex US- Unilateral [id number] Reason For Study: swelling Procedure LEFT This is a venous duplex using B-mode, color CFV is compressible, spontaneous, competent, flow and spectral Doppler. and demonstrates pulsatile venous flow. Exam performed in department. FV is compressible, spontaneous, competent The exam was abbreviated due to the COVID 19 and demonstrates pulsatile venous flow. protocol. POP V is compressible, spontaneous, competent The exam was diagnostic. and demonstrates pulsatile venous flow. A preliminary report was called and/or faxed T/P Trunk is compressible. to Dr. Weinberg. PTV is compressible. LT PerV is compressible. GSV is normal. VL/Venous Duplex US, Unilateral Interpretation Summary Deep veins of the left lower extremity are patent and compressible segmentally. There is no evidence of left lower extremity deep vein thrombosis. Valvular competence appears intac t within the proximal deep venous system on the left . The left great saphenous vein appears patent a nd compressible segmentally. Pulsatile flow is noted in the left lower extremity deep venous sy stem, which may be indicative of elevated central venous pressure (i.e. congestive heart failure, pulmonary hypertension, etc.). Clinical correlation is advised. Ordering Physician: Angel Weinberg Referring Physician: Angel Weinberg Performed By: Dexter Anglin, RVT
== END | disposition home or self-care (01) ==
LOC: CVS 10:07
PROVIDERS: PCP Family Medicine; Referring Provider Family Medicine; Visit Provider Family Medicine
DX: M79.89 Other specified soft tissue disorders (principal)
CPT/HCPCS: 93971

== ENCOUNTER → 2022-04-17 | Outpatient (CLI) | payer MEDICARE, SELFPAY ==
--- NOTE | 2022-04-17 07:44 | US_ITS ---
STUDY: ABDOMINAL ULTRASOUND REASON FOR EXAM: Male, 82 years old. Rule out intra-abdominal mass TECHNIQUE: Transabdominal ultrasound was performed with real-time and static pa scale imaging. TECHNICAL QUALITY: Adequate. COMPARISON: None. FINDINGS: Liver: The liver measures 16.3 cm. There is increased echogenicity consistent with fatty infiltration. The bile ducts are within normal limits. There is hepatic color flow. The direction of portal flow is hepatopetal. There is no demonstrated mass lesion. Portal vein measurement: Gallbladder: Normal distended gallbladder. The gallbladder wall measures 2.0 mm. There is a negative sonographic Webber''s sign. There is no pericholecystic fluid. There are no gallstones. Common Bile Duct (C.B.D.): The common bile duct measures 4.0 mm. Pancreas: Normal size of the head, body and tail of the pancreas. There is normal echogenicity of the pancreas. There is no demonstrated pancreatic mass or cyst. Spleen: Normal size of the spleen. The spleen measures 10.7 cm x 4.4 cm x 4.3 cm. Right Kidney: Normal size of the right kidney. The right kidney measures 13.2 cm x 5 cm x 5.2 cm. Normal renal cortex. The right cortex measures 2.1 cm. There is no demonstrated renal mass or cyst. There is no right hydronephrosis. Left Kidney: Normal size of the left kidney. The left kidney measures 11.2 cm x 5.6 cm x 5.8 cm. Normal renal cortex. The left cortex measures 1.3 cm. There is no demonstrated renal mass or cyst. There is no left hydronephrosis. Aorta: Limited visualization due to overlying bowel gas. I.V.C.: The IVC is patent. There is no ascites. Incidental note is made of a small left pleural effusion. US/Abdomen Complete IMPRESSION: Fatty infiltration of the liver. Tiny left pleural effusion. Electronically Signed: Ludin Askew MD at 10:39 EDT ,
== END | disposition home or self-care (01) ==
PROVIDERS: PCP Family Medicine; Referring Provider Family Medicine; Visit Provider Family Medicine
DX: K76.0 Fatty (change of) liver, not elsewhere classified (principal); R60.0 Localized edema
CPT/HCPCS: 76700

== ENCOUNTER 2022-06-23 09:50 | Inpatient (IN) | payer MEDICARE, SELFPAY ==
[2022-06-23] VITALS (13 sets, daily range): BP systolic 99–172; BP diastolic 60–97; PULSE 36–172; RESP 12–30; TEMP 29.3–36.8; O2SAT 95–100; BMI 31.2; BMI 32.5
[2022-06-23] MEDS: Atropine Sulfate 1 MG/10 ML Syringe 0.5 MG IV (09:53)
[2022-06-23] MEDS: Ondansetron 4 MG/2 ML Vial IV (09:55)
[2022-06-23] MEDS: Etomidate 20 MG/10 ML Vial 10 MG IV (10:04)
[2022-06-23] MEDS: Succinylcholine Chloride 200 MG/10 ML Vial 100 MG IV (10:04)
--- NOTE | 2022-06-23 10:10 | EX.ED.DYSGE1 ---
HPI History of Present Illness Chief Complaint: Unresponsive Narrative Narrative: 82-year-old male here for being found unresponsive. History provided by EMS as patient is in extremis. EMS states the patient was found unresponsive initially with a heart rate in the 30s. Noted blood glucose was 200. Stated they started transcutaneously pacing which improved the patient's mental status. Per the patient's he had an episode of syncope this occurred approximately 8 AM. This prompted her to call EMS. She states the patient started feeling unwell complaining of feeling lightheaded, left-sided neck pain. States patient went to bathroom and became more weak, dizzy and passed out. Denies any head trauma loss of consciousness. [facility] Medical History Atherosclerotic heart disease of [place] coronary artery without angina pectoris Bilateral carotid artery stenosis Cardiogenic shock Diabetes mellitus Essential hypertension History of DVT (deep vein thrombosis) History of pleural effusion Hyperlipidemia Kidney stone Nonrheumatic aortic (valve) stenosis Obesity Pericardial effusion with cardiac tamponade Peripheral vascular disease STEMI (ST elevation myocardial infarction) Home Medications cyanocobalamin (vitamin B-12) 1,000 mcg tablet 1,000 mcg PO DAILY 11/02/16 [History Last Taken Unknown] cholecalciferol (vitamin D3) 125 mcg (5,000 unit) capsule 5,000 unit PO DAILY 11/03/16 [History Last Taken Unknown] gabapentin 300 mg capsule 300 mg PO BID 12/15/17 [History Last Taken Unknown] metformin 500 mg tablet 500 mg PO BID 12/15/17 [History Last Taken Unknown] carvedilol 6.25 mg tablet 6.25 mg PO BID 12/17/17 [History Last Taken Unknown] clopidogrel 75 mg tablet 75 mg PO DAILY 04/27/19 [History Last Taken Unknown] nitroglycerin 0.4 mg sublingual tablet 0.4 mg sublingual Q5-15M PRN chest pain #25 tabs 08/18/19 [Rx Last Taken Unknown] empagliflozin 10 mg tablet (Jardiance) 10 mg PO DAILY 10/18/19 [History Last Taken Unknown] atorvastatin 40 mg tablet 40 mg PO QHS 11/15/20 [History Last Taken Unknown] furosemide 20 mg tablet 40 mg PO DAILY 11/15/20 [History Last Taken Unknown] albuterol sulfate 90 mcg/actuation aerosol inhaler 2 puff inhalation Q6H PRN 11/19/20 [History Last Taken Unknown] losartan 25 mg tablet 25 mg PO QHS #90 tabs 06/03/21 [Rx Last Taken Unknown] Lantus Solostar U-100 Insulin 100 unit/mL (3 mL) subcutaneous pen (insulin glargine) 65 unit (0.65 mL) subcut QHS #58.5 mL 07/01/21 [Rx Last Taken Unknown] Novolog Flexpen U-100 Insulin 100 unit/mL (3 mL) subcutaneous (insulin aspart U-100) 30 unit (0.3 mL) subcut .TIDCM #81 mL 07/02/21 [Rx Last Taken Unknown] Allergy/AdvReac Type Severity Reaction Status Date / Time amlodipine besylate Allergy Unknown Verified 06/23/22 11:11 [From Norvasc] carisoprodol [From Soma] Allergy Unknown Verified 06/23/22 11:11 cyclobenzaprine HCl Allergy Unknown Verified 06/23/22 11:11 [From Flexeril] doxycycline Allergy Unknown Verified 06/23/22 11:11 fosinopril Allergy Unknown Verified 06/23/22 11:11 gemfibrozil [From Lopid] Allergy Unknown Verified 06/23/22 11:11 Penicillins Allergy Unknown Verified 06/23/22 11:11 pravastatin sodium Allergy Unknown Verified 06/23/22 11:11 [From Pravachol] pregabalin [From Lyrica] Allergy Unknown Verified 06/23/22 11:11 Vzeogmn-RAF-EeE Reductase Allergy Unknown Verified 06/23/22 11:11 Inhibitor [Rxkaqcn-Mqp-Rjl Reductase Inhibitor] tramadol AdvReac Severe Hallucinations,nausea, Verified 06/23/22 11:11 sweats and chills Family History Mother Cancer melanoma Sister Cancer ovarian Brother Cancer leukemia Surgical History History of heart artery stent (~08/2018) History of hernia repair History of tonsillectomy and adenoidectomy Postsurgical percutaneous transluminal coronary angioplasty (PTCA) status (~08/30/19) Presence of aortocoronary bypass graft (~01/09/16) Presence of stent in coronary artery (~08/31/18) Previous back surgery Status post left heart catheterization (LHC) (~02/13/19) Status post pericardiocentesis (~01/21/16) Status post wrist surgery Social History Smoking Status: Former smoker alcohol intake: never substance use type: does not use caffeine: Yes Type: carbonated beverages Number of servings: 4 ROS ROS ED ROS Narrative Unable to obtain review of systems secondary to acuity of the patient's condition. EXAM Physical Exam Narrative Exam Narrative: Nursing triage notes reviewed, Vital signs reviewed Constitutional: please see mdm HENT: Dry oral mucosa Eyes: Pupils equal round and reactive to light, Neck: No obvious JVD Lungs: No obvious rales, Heart: Slow irregular rate, no murmurs, pulses in all 4 extremities noted. Abdomen: Soft, no hernia : Normal-appearing genitalia Extremities: No edema Neuro: Patient was initially alert and orient x3, moves all 4 extremities, and sensation all 4 extremities Skin: No rash or lesions noted Const Vital Signs: 06/23/22 09:51 06/23/22 10:03 06/23/22 10:06 Temperature 84.7 F L Temperature Source Temporal Pulse Rate 57 L 70 36 L Respiratory Rate 18 12 12 Respiratory Effort Respiratory Pattern Normal Blood Pressure 99/67 172/88 H Blood Pressure Mean 77 116 Pulse Ox 95 98 Oxygen Delivery Method Room Air Nasal Cannula Oxygen Flow Rate (L/min) 5 Fraction of Inspired Oxygen (FIO2) 60 06/23/22 11:05 06/23/22 11:26 06/23/22 11:27 Temperature 84.7 F L Temperature Source Temporal Pulse Rate 36 L 172 H Respiratory Rate 12 30 H Respiratory Effort Agonal Respiratory Pattern Blood Pressure 172/88 H Blood Pressure Mean 116 Pulse Ox 98 100 Oxygen Delivery Method Nasal Cannula Oxygen Flow Rate (L/min) Fraction of Inspired Oxygen (FIO2) 60 MDM MDM MDM Narrative Medical decision making narrative: 82-year-old male here for being found unresponsive initially noted to be bradycardic, hypotensive in the setting of TAVR on 06/20/2022. On arrival IVs were placed, O2 was given, patient was placed on the monitor. Initial heart rate is in the 30s he was given 0.5 mg atropine which transiently improved his heart rate and mentation. Patient had a transient episode of bradycardia questionable lost pulses. At this point CPR was started transiently. Transcutaneous pacing was started. Patient's airway secured via endotracheal intubation. Please see below procedure note. At this point the patient was more stable at 40 mA, 70 bpm. Blood pressures remained stable prior to and after intubation. Confirmed intubation to x-ray. Obtained a consult with the on-call interventionalists Dr. Olivia who agreed the patient would likely need an emergent pacemaker however state he would like to see the patient's ABG, potassium levels. This point time I was able to talk to the patient's who provided additional history. The patient is full code. During history the patient had another episode of cardiac arrest. He regained ROSC after 1 mg of epi and 2 minutes of CPR. At this point Dr. Olivia came to the bedside and agreed take patient to [facility] Department [facility]. Did talk to Dr. Toledo (hospitalist, ICU) who agreed to accept the patient here at [facility] to await bed at [facility]. Patient's family did agree to have the patient transferred to [facility] for definitive care. Spoke to Dr. Minor (CCU fellow) who accepted the patient's case under Dr. Pittman (CICU attending) Lab Data Labs: Laboratory Results - last 24 hr 06/23/22 06/23/22 06/23/22 10:10 10:10 10:10 WBC 11.6 H RBC 4.38 L Hgb 14.4 Hct 42.4 MCV 96.8 H MCH 32.9 H MCHC 34.0 RDW Std Deviation 47.1 H RDW Coeff of Rubén 13.1 Plt Count 149 L MPV 11.3 Immature Gran % (Auto) 0.900 Neut % (Auto) 45.9 L Lymph % (Auto) 44.8 H [place] % (Auto) 6.2 Eos % (Auto) 1.5 Baso % (Auto) 0.7 Absolute Neuts (auto) 5.3 Absolute Lymphs (auto) 5.20 H Nucleated RBC % 0 PT 13.5 INR 1.1 APTT > 90.0 H* Sodium 132 L Potassium 5.2 H Chloride 101 Carbon Dioxide 15.0 L Anion Gap 16 H BUN 36 H Creatinine 2.20 H Estim Creat Clear Calc 27.57 Est GFR (MDRD) Af Amer 37 L Est GFR (MDRD) Non-Af 31 L BUN/Creatinine Ratio 16.4 Glucose 452 H* Lactic Acid Calcium 9.3 Troponin I High Sens 91 H 06/23/22 10:20 WBC RBC Hgb Hct MCV MCH MCHC RDW Std Deviation RDW Coeff of [place] Plt Count MPV Immature Gran % (Auto) Neut % (Auto) Lymph % (Auto) [place] % (Auto) Eos % (Auto) Baso % (Auto) Absolute Neuts (auto) Absolute Lymphs (auto) Nucleated RBC % PT INR APTT Sodium Potassium Chloride Carbon Dioxide Anion Gap BUN Creatinine Estim Creat Clear Calc Est GFR (MDRD) Af Amer Est GFR (MDRD) Non-Af BUN/Creatinine Ratio Glucose Lactic Acid 8.1 H* Calcium Troponin I High Sens ABG Data ABG results: ABG 06/23/22 06/23/22 10:36 11:12 Specimen Type ART ART Sample Site L Brach pH 7.08 L* 7.21 L Bicarbonate Actual 10.0 L 16.3 L Total CO2 11 18 Base Excess -20 L -12 L O2 Saturation 96 100 H O2 % 60 ABG pCO2 34.0 L 41.0 ABG pO2 117 H 318 H* O2 Delivery Device Adult Vent Crit Call To/Read Back Yes Yes Blood Gas Notified Whom jk shannan Radiography Diagnostic Testing: Clinical Impression(s) from Imaging Studies Chest X-Ray 06/23/22 10:13 IMPRESSION: The tip of the endotracheal tube is at 2.9 sinus proximal to the eboni. Electronically Signed: Ludin Askew MD at 10:54 EDT , Treatment and Re-Evaluation Narrative: Initial EKG with complete heart block no obvious STEMI Procedures Intubations Intubation Method: orotracheal Intubation Verification: Positive color change and Bilateral breath sounds confirmed Intubation Complications: no complications Other Procedures Procedure(s): Transcutaneous pacing, 40 mA, 70 ppm Discharge Plan Dx/Rx/DC Orders Clinical Impression: CHB (complete heart block) Disposition Disposition: Acute Care Hospital [facility] Discharge Date/Time: 06/23/22 11:27
--- NOTE | 2022-06-23 10:13 | RAD_ITS ---
STUDY: X-RAY CHEST REASON FOR EXAM: Male, 82 years old. Intubation. TECHNIQUE: Single AP portable view of the chest. COMPARISON: Comparison is made with prior study dated 12/17/2021. FINDINGS: An endotracheal tube is in situ. The tip is at 2.9 cm proximal to the eboni. An orogastric tube is seen with the tip in the fundal portion of the stomach. The lungs are clear and expanded. There is no demonstrated pleural abnormality. Sternal cerclage wires are present from a prior sternotomy. Cardiomegaly. Prior aortic valve replacement. Surgical clips are once again seen in the left hilar region. Normal visualized pulmonary arteries. There is atherosclerotic calcification of the aortic arch with tortuosity. There are diffuse degenerative changes of the visualized thoracic spine. Multiple healed left-sided rib fractures. There is no demonstrated abnormality of the visualized soft tissue structures of the upper abdomen. RAD/Chest 1 View (Portable) IMPRESSION: The tip of the endotracheal tube is at 2.9 sinus proximal to the eboni. Electronically Signed: Ludin Askew MD at 10:54 EDT ,
[2022-06-23 10:22] LABS: Absolute Neutrophil Count 5.3 X10^3/uL (2.0-7.7); Basophil# 0.08 X10^3/uL; Basophil% 0.7 % (0-1); Eosinophil# 0.18 X10^3/uL; Eosinophils% 1.5 % (0-5); Hematocrit 42.4 % (40-54); Hemoglobin 14.4 g/dL (13.0-16.5); Lymphocyte % 44.8 % (19-41); Mean Corpuscular Hgb 32.9 pg (27.0-32.0); Mean Corpuscular Volume 96.8 fL (80-94); Mean Platelet Vol. 11.3 fl (6.2-12.0); Monocyte# 0.72 X10^3/uL; Monocyte% 6.2 % (0-10); NRBC Flagged by Analyzer 0 % (0-5); Neutrophil # 5.34 X10^3/uL (2.7-7.7); Neutrophil % 45.9 % (47-70); POSITIVE DIFFERENTIAL YES; Platelet Count 149 K/mm3 (150-450); RBC Distribution Width CV 13.1 % (11.6-14.6); RBC Distribution Width SD 47.1 fl (35.1-43.9); Red Blood Count 4.38 M/mm3 (4.6-6.2); White Blood Count 11.6 K/mm3 (4.4-11.0)
[2022-06-23] MEDS: 0.9% Normal Saline 1,000 ML 1000 ML IV (10:22)
[2022-06-23] MEDS: 0.9% Normal Saline 1,000 ML 150 ML IV ×2 (10:23→15:44)
[2022-06-23 10:25] LABS: Differential Indicated SCAN CRITERIA MET
[2022-06-23 10:26] LABS: International Normalized Ratio 1.1; Prothrombin Time (Protime)PT. 13.5 SECONDS (11.7-14.9)
--- NOTE | 2022-06-23 10:27 | NURSING ---
0957 ZULAY BILL CALLED 1025 ZULAY BILL CALLED
[2022-06-23] MEDS: Epinephrine (POST-RESUSCITATION) 1 mg in 0.9% NS 250 mL 15 MG CONT INF (10:30)
[2022-06-23] MEDS: 0.9% Normal Saline 1,000 ML 999 ML IV (10:30)
[2022-06-23] MEDS: fentaNYL 100 MCG/2 ML Ampul IV (10:31)
--- NOTE | 2022-06-23 10:39 | NURSING ---
[employer] [employer]ACEMENT
[2022-06-23 10:40] LABS: Base Excess -20 mmol/L (-2 to +2); Blood Gas Specimen Type ART; FI02 60; O2 Delivery Device Adult Vent; PO2 117 mmHG (75-100); SITE L Brach; SO2 96 % (95-99); Total Carbon Dioxide 11 mmol/L; pH 7.08 (7.35-7.45)
[2022-06-23 10:46] LABS: Anion Gap 16 (5-15); BUN 36 mg/dL (7-18); BUN/Creat Ratio 16.4 RATIO (10-20); Calcium,Total 9.3 mg/dL (8.5-10.1); Chloride 101 mmol/L (98-107); EST Glomerular Filtration Rate 31 mL/min (>60); Est Glom Filt Rate - Afr Amer 37 mL/min (>60); Estimated Creatinine Clearance 27.57 ml/min; Glucose 452 mg/dL (74-106); Potassium 5.2 mmol/L (3.5-5.1); Sodium Level 132 mmol/L (136-145); Troponin-I HS 91 pg/mL (3.0-78.0)
--- NOTE | 2022-06-23 10:48 | NURSING ---
Pt arrived via squad A&O x3 and externally paced, was removed from pacing and noted to be in heart block. 0953 0.5 atropine given iv 0953 20 g iv started by Phoenix Trujillo RN 0955 4 mg zofran given iv 0957 placed on external pacer @ 70 with 40 milliamps 0958 20 g iv started 0958 unable to obtain pulse, compressions started, compressions started 0959 pulse obtained, pacer reinitiated at 70 with 40 milliamps [address] Arias preparing for intubation 1004 10 etomodate given 1005 100 succinate given 1005 bagging continued [address] Arias with 7.5 blade at 24 at the lip with bilateral breath sounds, good color change and condensation noted 1007 18 g NG placed orally 1016 100 mcg fentany given, duff placed, cxr for tube placement 1025 pulse lost, compressions resumed, code blude called 1026 epi given iv 1028 pulse check, rosc achieved, fentanyl gtt stopped 1030 epi gtt initiated @ 1 mcg/min 1032 epi gtt increased to 2 mcg/min 1033 resumed fentanyl gtt @ 25 and increased epi gtt to 3 mcg 1036 increased epi to 4 mcg/min
--- NOTE | 2022-06-23 10:57 | NURSING ---
0197 CALLED [facility] TRANSFER LINE. GAVE THEM INFO AND DR MENJIVAR TALKING TO THEM. FAXED FACESHEET
--- NOTE | 2022-06-23 11:01 | CM.ED ---
JERI Note Code Blue JERI and JERI Aviles responded to code blue. Emotional support provided. JERI remains available if additional needs arise. Evelyn ODELL
[2022-06-23 11:03] LABS: Partial Thromboplast Time > 90.0 Seconds (24.1-36.2)
--- NOTE | 2022-06-23 11:04 | PCM.HP.STD ---
HPI - General General Date of Admission: 06/23/22 Date of Service: 06/23/22 Chief Complaint: Unresponsiveness HPI Narrative WILBER BRADY, is a 82 M with past medical history significant for coronary artery disease with previous CABG valvular heart disease with severe aortic stenosis who underwent TAVR at [facility] 5 days prior to his admission was brought to the emergency department after he became unresponsive at home following a syncopal episode. EMS apparently found patient to be in a complete heart block transcutaneous pacing was initiated on the field. He apparently lost a pulse patient was successfully resuscitated using ACLS protocol with ROSC. Transferred to the emergency department intubated and subsequently transferred to the [facility] where patient underwent permanent pacemaker placement [facility] Medical History Atherosclerotic heart disease of [place] coronary artery without angina pectoris Bilateral carotid artery stenosis Cardiogenic shock Diabetes mellitus Essential hypertension History of DVT (deep vein thrombosis) History of pleural effusion Hyperlipidemia Kidney stone Nonrheumatic aortic (valve) stenosis Obesity Pericardial effusion with cardiac tamponade Peripheral vascular disease STEMI (ST elevation myocardial infarction) Home Medications cyanocobalamin (vitamin B-12) 1,000 mcg tablet 1,000 mcg PO DAILY 11/02/16 [History Last Taken Unknown] cholecalciferol (vitamin D3) 125 mcg (5,000 unit) capsule 5,000 unit PO DAILY 11/03/16 [History Last Taken Unknown] gabapentin 300 mg capsule 300 mg PO BID 12/15/17 [History Last Taken Unknown] metformin 500 mg tablet 500 mg PO BID 12/15/17 [History Last Taken Unknown] carvedilol 6.25 mg tablet 6.25 mg PO BID 12/17/17 [History Last Taken Unknown] clopidogrel 75 mg tablet 75 mg PO DAILY 04/27/19 [History Last Taken Unknown] nitroglycerin 0.4 mg sublingual tablet 0.4 mg sublingual Q5-15M PRN chest pain #25 tabs 08/18/19 [Rx Last Taken Unknown] empagliflozin 10 mg tablet (Jardiance) 10 mg PO DAILY 10/18/19 [History Last Taken Unknown] atorvastatin 40 mg tablet 40 mg PO QHS 11/15/20 [History Last Taken Unknown] furosemide 20 mg tablet 40 mg PO DAILY 11/15/20 [History Last Taken Unknown] albuterol sulfate 90 mcg/actuation aerosol inhaler 2 puff inhalation Q6H PRN 11/19/20 [History Last Taken Unknown] losartan 25 mg tablet 25 mg PO QHS #90 tabs 06/03/21 [Rx Last Taken Unknown] Lantus Solostar U-100 Insulin 100 unit/mL (3 mL) subcutaneous pen (insulin glargine) 65 unit (0.65 mL) subcut QHS #58.5 mL 07/01/21 [Rx Last Taken Unknown] Novolog Flexpen U-100 Insulin 100 unit/mL (3 mL) subcutaneous (insulin aspart U-100) 30 unit (0.3 mL) subcut .TIDCM #81 mL 07/02/21 [Rx Last Taken Unknown] Allergy/AdvReac Type Severity Reaction Status Date / Time amlodipine besylate Allergy Unknown Verified 06/23/22 11:11 [From Norvasc] carisoprodol [From Soma] Allergy Unknown Verified 06/23/22 11:11 cyclobenzaprine HCl Allergy Unknown Verified 06/23/22 11:11 [From Flexeril] doxycycline Allergy Unknown Verified 06/23/22 11:11 fosinopril Allergy Unknown Verified 06/23/22 11:11 gemfibrozil [From Lopid] Allergy Unknown Verified 06/23/22 11:11 Penicillins Allergy Unknown Verified 06/23/22 11:11 pravastatin sodium Allergy Unknown Verified 06/23/22 11:11 [From Pravachol] pregabalin [From Lyrica] Allergy Unknown Verified 06/23/22 11:11 Eijjggb-GZN-DbG Reductase Allergy Unknown Verified 06/23/22 11:11 Inhibitor [Qtsjtlo-Yck-Nmz Reductase Inhibitor] tramadol AdvReac Severe Hallucinations,nausea, Verified 06/23/22 11:11 sweats and chills Family History Mother Cancer melanoma Sister Cancer ovarian Brother Cancer leukemia Surgical History History of heart artery stent (~08/2018) History of hernia repair History of tonsillectomy and adenoidectomy Postsurgical percutaneous transluminal coronary angioplasty (PTCA) status (~08/30/19) Presence of aortocoronary bypass graft (~01/09/16) Presence of stent in coronary artery (~08/31/18) Previous back surgery Status post left heart catheterization (LHC) (~02/13/19) Status post pericardiocentesis (~01/21/16) Status post wrist surgery Social History Smoking Status: Former smoker alcohol intake: never substance use type: does not use caffeine: Yes Type: carbonated beverages Number of servings: 4 ROS Review of Systems ROS Unobtainable: due to endotracheal tube Vital Signs Vital Signs Vital Signs: 06/23/22 09:51 06/23/22 10:03 Temperature 84.7 F L Temperature Source Temporal Pulse Rate 57 L 70 Respiratory Rate 18 12 Blood Pressure 99/67 172/88 H Blood Pressure Mean 77 116 Pulse Ox 95 Oxygen Delivery Method Room Air Nasal Cannula Oxygen Flow Rate (L/min) 5 Weight Weight: 101.6 kg Body Mass Index (BMI) 31.2 Physical Exam Narrative GENERAL: Patient on the vent HEENT: ET tube in place EYES; Anicteric, Normal Conjunctiva NECK; supple, normal thyroid, RESPIRATORY: Diminished to auscultation CARDIOVASCULAR: Regular S1 S2, GI: soft, normoactive bowel sounds, : No Renal angle tenderness; EXTREMITIES: No edema, no clubbing, MUSCULOSKELETAL: no muscle wasting NEURO: Patient on the vent SKIN: No Rash Results Lab / Micro Data Result Diagrams: 06/23/22 10:10 06/23/22 10:10 Labs: Laboratory Results - last 24 hr 06/23/22 10:10: WBC 11.6 H, RBC 4.38 L, Hgb 14.4, Hct 42.4, MCV 96.8 H, MCH 32.9 H, MCHC 34.0, RDW Std Deviation 47.1 H, RDW Coeff of Rubén 13.1, Plt Count 149 L, MPV 11.3, Immature Gran % (Auto) 0.900, Neut % (Auto) 45.9 L, Lymph % (Auto) 44.8 H, [place] % (Auto) 6.2, Eos % (Auto) 1.5, Baso % (Auto) 0.7, Absolute Neuts (auto) 5.3, Absolute Lymphs (auto) 5.20 H, Nucleated RBC % 0 06/23/22 10:10: PT 13.5, INR 1.1, APTT > 90.0 H* 06/23/22 10:10: Sodium 132 L, Potassium 5.2 H, Chloride 101, Carbon Dioxide 15.0 L, Anion Gap 16 H, BUN 36 H, Creatinine 2.20 H, Estim Creat Clear Calc 27.57, Est GFR (MDRD) Af Amer 37 L, Est GFR (MDRD) Non-Af 31 L, BUN/Creatinine Ratio 16.4, Glucose 452 H*, Calcium 9.3, Troponin I High Sens 91 H ABG Data ABG results: ABG 06/23/22 10:36 Specimen Type ART Sample Site L Brach pH 7.08 L* Bicarbonate Actual 10.0 L Total CO2 11 Base Excess -20 L O2 Saturation 96 O2 % 60 ABG pCO2 34.0 L ABG pO2 117 H O2 Delivery Device Adult Vent Crit Call To/Read Back Yes Blood Gas Notified Whom jk Radiology Impression Chest X-Ray 06/23/22 10:13 IMPRESSION: The tip of the endotracheal tube is at 2.9 sinus proximal to the eboni. Electronically Signed: Ludin Askew MD at 10:54 EDT , Assessment & Plan Assessment/Plan (1) CHB (complete heart block): (2) Cardiac arrest: PLAN: Plan Patient IS AN 82 M with past medical history significant for coronary artery disease with previous CABG valvular heart disease with severe aortic stenosis who underwent TAVR at [facility] 5 days prior to his admission was brought to the emergency department after he became unresponsive at home following a syncopal episode. EMS apparently found patient to be in a complete heart block transcutaneous pacing was initiated on the field. He apparently lost a pulse patient was successfully resuscitated using ACLS protocol with ROSC. Transferred to the emergency department intubated and subsequently transferred to the [facility] where patient underwent permanent pacemaker placement 1. Third-degree AV block ? Patient underwent emergency Transvenous temporary pacemaker which was later converted to permanent pacemaker 3. Cardiopulmonary arrest ? Patient rhythm was found to be asystolic resuscitated using ACLS protocol with ROSC. Intubated and admitted to the intensive care unit. Consult placed to pulmonary/critical care for vent management 3. Valvular heart disease ? With severe aortic stenosis patient underwent TAVR at [facility] 5 days prior to his admission 4. Acute respiratory failure ? Following patient cardiopulmonary arrest patient was intubated and admitted to the intensive care unit management of patient events defer to pulmonary/critical care 5. Coronary artery disease ? With previous CABG 6. History of mild intermittent asthma ? Patient is managed by pulmonary medicine as outpatient 7. 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 Status post pericardiocentesis 8. Diabetes mellitus type 2 ? Patient blood glucose control not optimal did continue with long-acting insulin in addition to Accu-Cheks every 6 with sliding scale coverage 9. Dyslipidemia -Patient is on statin therapy, continued at home dose 10. Hypertension - Blood pressure controlled, home medications continued with dose adjustment as needed 11. Class I obesity with BMI of 31.2 12. Kidney disease stage III ? Kidney function at baseline 13. History of previous DVT ? Stable 14. DVT prophylaxis ? SC Lovenox Total critical care time spent evaluating patient, review of diagnostic data, subsequent review of patient, discussion with nursing staff as well as other providers involved in patient's care 75-minute Charges/Coding Multi Select Codes Hospitalists' Procedures Procedures: 46273 Critial Care 1st Hr and [id number] Critial Care Addl 30 Min
--- NOTE | 2022-06-23 11:05 | NURSING ---
HOSPITALIST PAGED DR VERGARA FOR DR MENJIVAR
--- NOTE | 2022-06-23 11:09 | ECHOL_ITS ---
Reason For Study: Cardiac Arrest Procedure This was a limited 2D transthoracic echocardiogram. Performed portable in the supervisor dental laboratory. Left Ventricle Normal LV size. Moderate concentric left ventricular hypertrophy. The left ventricular ejection fraction is 50 %. Unable to assess diastolic function based on available data. Severe posterior and inferior hypokinesis. Right Ventricle Normal right ventricle. Atria The left atrium is moderately enlarged. Normal right atrium. Mitral Valve Moderately severe (3+) mitral valve insufficiency. Tricuspid Valve Mild tricuspid valve insufficiency. Severe pulmonary hypertension. Aortic Valve Bioprosthetic aortic valve functioning normally. Pulmonic Valve The pulmonic valve is not well visualized. Great Vessels The inferior vena cava is dilated. Pericardium/Pleural No pericardial effusion. MMode/2D Measurements & Calculations LVIDd: 5.1 cm IVSd: 1.5 cm LVAd ap4: 38.4 cm2 LVIDs: 3.5 cm LVPWd: 1.1 cm LVLd ap4: 9.7 cm FS: 31.8 % EDV(MOD-sp4): 124.9 ml EDV(sp4-el): 128.7 ml LVAs ap4: 29.3 cm2 LVLs ap4: 9.2 cm ESV(MOD-sp4): 77.9 ml ESV(sp4-el): 79.1 ml EF(MOD-sp4): 37.6 % EF(sp4-el): 38.6 % SV(MOD-sp4): 47.0 ml SV(sp4-el): 49.7 ml LA dimension(2D): 4.4 cm Doppler Measurements & Calculations TR max carlos: 372.3 cm/sec TR max P.4 mmHg ECHO/Echo, Limited Study Interpretation Summary Moderate concentric left ventricular hypertrophy. The left ventricular ejection fraction is 50 %. Severe posterior and inferior hypokinesis Severe pulmonary hypertension. Mild tricuspid valve insufficiency. Bioprosthetic aortic valve functioning normally. Ordering Physician: Mable Olivia Performed By: Dilcia Toribio RDCS
--- NOTE | 2022-06-23 11:09 | NURSING ---
ICU KITTOE COMPLETE HEART BLOCK
[2022-06-23 11:12] LABS: Lactic Acid 8.1 mmol/L (0.4-1.9)
[2022-06-23 11:21] LABS: Base Excess -12 mmol/L (-2 to +2); Bicarbonate 16.3 mmol/L (22-26); Blood Gas Specimen Type ART; PO2 318 mmHG (75-100); SO2 100 % (95-99); Total Carbon Dioxide 18 mmol/L; pH 7.21 (7.35-7.45)
--- NOTE | 2022-06-23 11:30 | PRO.PCM_ITS ---
Assessment & Plan Assessment/Plan (1) Asystole: PLAN: Patient with asystolic cardiac arrest in the emergency room. EKG flatline. Recommend emergency placement of temporary transvenous pacemaker. (2) Cardiac arrest: PLAN: Asystolic. See #1 above. Procedure Report Date of Procedure: 06/23/22 Indications for procedure: Asystolic cardiac arrest. Procedures performed: 1. Right femoral venous sheath placement. 2. Insertion of temporary pacemaker wire. Technique of procedure: Patient was prepped and draped in the usual sterile fashion. A venous sheath was placed in the right common femoral vein after obtaining access via the m odified Seldinger technique. A balloon tipped pacemaker wire was then advanced under fluoroscopic guidance across the tricuspid valve and placed into the right ventricle. Transvenous pacing was commenced. Good capture was obtained. The right venous sheath was sutured in place. Recommendations: 1. Permanent pacemaker placement.
--- NOTE | 2022-06-23 11:35 | PCM.CONS.C ---
Assessment & Plan Assessment/Plan (1) Asystole: PLAN: Likely a complication of recently performed TAVR. Transvenous temporary pacemaker wire floated emergently. Good capture. Consult with Dr. Clark for permanent pacemaker placement. Please note that the patient is requiring high mA for catheter through the transvenous pacemaker. (2) Cardiac arrest: PLAN: Secondary to third-degree AV block and subsequently asystole. See #1 above. (3) Aortic stenosis: PLAN: History of TAVR at [facility] about a month ago. HPI Consult Data Date of Consult: 06/23/22 HPI Narrative Reason for Consultation: Asystolic cardiac arrest HPI Narrative: WILBER BRADY, is a 82 M with history of coronary artery disease status post CABG, severe aortic stenosis status post recent TAVR. He had a presyncopal/syncopal episode at home. EMS brought the patient to the emergency room. In the emergency room, initially was noted to have complete heart block which soon worsened to asystolic cardiac arrest. Transcutaneous pacemaker was instituted. However the patient lost pulses a couple of times subsequently as well. CPR was commenced. The patient had return of spontaneous circulation after epinephrine. However this would soon deteriorate again to asystole with need for CPR again. [facility] Medical History Atherosclerotic heart disease of [place] coronary artery without angina pectoris Bilateral carotid artery stenosis Cardiogenic shock Diabetes mellitus Essential hypertension History of DVT (deep vein thrombosis) History of pleural effusion Hyperlipidemia Kidney stone Nonrheumatic aortic (valve) stenosis Obesity Pericardial effusion with cardiac tamponade Peripheral vascular disease STEMI (ST elevation myocardial infarction) Home Medications cyanocobalamin (vitamin B-12) 1,000 mcg tablet 1,000 mcg PO DAILY 11/02/16 [History Last Taken Unknown] cholecalciferol (vitamin D3) 125 mcg (5,000 unit) capsule 5,000 unit PO DAILY 11/03/16 [History Last Taken Unknown] gabapentin 300 mg capsule 300 mg PO BID 12/15/17 [History Last Taken Unknown] metformin 500 mg tablet 500 mg PO BID 12/15/17 [History Last Taken Unknown] carvedilol 6.25 mg tablet 6.25 mg PO BID 12/17/17 [History Last Taken Unknown] clopidogrel 75 mg tablet 75 mg PO DAILY 04/27/19 [History Last Taken Unknown] nitroglycerin 0.4 mg sublingual tablet 0.4 mg sublingual Q5-15M PRN chest pain #25 tabs 08/18/19 [Rx Last Taken Unknown] empagliflozin 10 mg tablet (Jardiance) 10 mg PO DAILY 10/18/19 [History Last Taken Unknown] atorvastatin 40 mg tablet 40 mg PO QHS 11/15/20 [History Last Taken Unknown] furosemide 20 mg tablet 40 mg PO DAILY 11/15/20 [History Last Taken Unknown] albuterol sulfate 90 mcg/actuation aerosol inhaler 2 puff inhalation Q6H PRN 11/19/20 [History Last Taken Unknown] losartan 25 mg tablet 25 mg PO QHS #90 tabs 06/03/21 [Rx Last Taken Unknown] Lantus Solostar U-100 Insulin 100 unit/mL (3 mL) subcutaneous pen (insulin glargine) 65 unit (0.65 mL) subcut QHS #58.5 mL 07/01/21 [Rx Last Taken Unknown] Novolog Flexpen U-100 Insulin 100 unit/mL (3 mL) subcutaneous (insulin aspart U-100) 30 unit (0.3 mL) subcut .TIDCM #81 mL 07/02/21 [Rx Last Taken Unknown] Allergy/AdvReac Type Severity Reaction Status Date / Time amlodipine besylate Allergy Unknown Verified 06/23/22 11:11 [From Norvasc] carisoprodol [From Soma] Allergy Unknown Verified 06/23/22 11:11 cyclobenzaprine HCl Allergy Unknown Verified 06/23/22 11:11 [From Flexeril] doxycycline Allergy Unknown Verified 06/23/22 11:11 fosinopril Allergy Unknown Verified 06/23/22 11:11 gemfibrozil [From Lopid] Allergy Unknown Verified 06/23/22 11:11 Penicillins Allergy Unknown Verified 06/23/22 11:11 pravastatin sodium Allergy Unknown Verified 06/23/22 11:11 [From Pravachol] pregabalin [From Lyrica] Allergy Unknown Verified 06/23/22 11:11 Fxblehl-RON-VmW Reductase Allergy Unknown Verified 06/23/22 11:11 Inhibitor [Uxkrpyv-Kqs-Awy Reductase Inhibitor] tramadol AdvReac Severe Hallucinations,nausea, Verified 06/23/22 11:11 sweats and chills Family History Mother Cancer melanoma Sister Cancer ovarian Brother Cancer leukemia Surgical History History of heart artery stent (~08/2018) History of hernia repair History of tonsillectomy and adenoidectomy Postsurgical percutaneous transluminal coronary angioplasty (PTCA) status (~08/30/19) Presence of aortocoronary bypass graft (~01/09/16) Presence of stent in coronary artery (~08/31/18) Previous back surgery Status post left heart catheterization (LHC) (~02/13/19) Status post pericardiocentesis (~01/21/16) Status post wrist surgery Social History Smoking Status: Former smoker alcohol intake: never substance use type: does not use caffeine: Yes Type: carbonated beverages Number of servings: 4 Physical Exam Narrative Intubated. Unresponsive. Chest clear to auscultation. Abdomen soft. Risk Stratification Risk Stratification Applicable: No Objective Data Vital Signs: Vital Signs Temp Pulse Resp BP Pulse Ox O2 Del Method O2 Flow Rate 84.7 F L 172 H 30 H 172/88 H 100 Nasal Cannula 5 06/23/22 11:26 06/23/22 11:27 06/23/22 11:27 06/23/22 11:26 06/23/22 11:27 06/23/22 11:26 06/23/22 10:03 FiO2 60 06/23/22 11:27 Oxygen Flow Rate (L/min) 5 Oxygen Delivery Method Nasal Cannula Weight: 223 lb 15.834 oz Body Mass Index (BMI) 31.2 Lab / Micro Data Attestation: I reviewed the patient's lab results. Result Diagrams: 06/23/22 10:10 06/23/22 10:10 Labs: Laboratory Results - last 24 hr 06/23/22 10:10: WBC 11.6 H, RBC 4.38 L, Hgb 14.4, Hct 42.4, MCV 96.8 H, MCH 32.9 H, MCHC 34.0, RDW Std Deviation 47.1 H, RDW Coeff of Rubén 13.1, Plt Count 149 L, MPV 11.3, Immature Gran % (Auto) 0.900, Neut % (Auto) 45.9 L, Lymph % (Auto) 44.8 H, Waldo % (Auto) 6.2, Eos % (Auto) 1.5, Baso % (Auto) 0.7, Absolute Neuts (auto) 5.3, Absolute Lymphs (auto) 5.20 H, Nucleated RBC % 0 06/23/22 10:10: PT 13.5, INR 1.1, APTT > 90.0 H* 06/23/22 10:10: Sodium 132 L, Potassium 5.2 H, Chloride 101, Carbon Dioxide 15.0 L, Anion Gap 16 H, BUN 36 H, Creatinine 2.20 H, Estim Creat Clear Calc 27.57, Est GFR (MDRD) Af Amer 37 L, Est GFR (MDRD) Non-Af 31 L, BUN/Creatinine Ratio 16.4, Glucose 452 H*, Calcium 9.3, Troponin I High Sens 91 H 06/23/22 10:20: Lactic Acid 8.1 H* ABG Data ABG results: ABG 06/23/22 06/23/22 10:36 11:12 Specimen Type ART ART Sample Site L Brach pH 7.08 L* 7.21 L Bicarbonate Actual 10.0 L 16.3 L Total CO2 11 18 Base Excess -20 L -12 L O2 Saturation 96 100 H O2 % 60 ABG pCO2 34.0 L 41.0 ABG pO2 117 H 318 H* O2 Delivery Device Adult Vent Crit Call To/Read Back Yes Yes Blood Gas Notified Whom daniela shannan Rhythm Strip Rhythm Strip: Asystole Cardiology Labs/Tests 06/23/22 10:10: WBC 11.6 H, RBC 4.38 L, Hgb 14.4, Hct 42.4, MCV 96.8 H, MCH 32.9 H, MCHC 34.0, Plt Count 149 L, MPV 11.3, Immature Gran % (Auto) 0.900, Neut % (Auto) 45.9 L, Lymph % (Auto) 44.8 H, Waldo % (Auto) 6.2, Eos % (Auto) 1.5, Baso % (Auto) 0.7, Absolute Neuts (auto) 5.3, Nucleated RBC % 0 06/23/22 10:10: PT 13.5, INR 1.1, APTT > 90.0 H* 06/23/22 10:10: Sodium 132 L, Potassium 5.2 H, Chloride 101, Carbon Dioxide 15.0 L, Anion Gap 16 H, BUN 36 H, Creatinine 2.20 H, Est GFR (MDRD) Af Amer 37 L, Est GFR (MDRD) Non-Af 31 L, BUN/Creatinine Ratio 16.4, Glucose 452 H*, Calcium 9.3 06/23/22 10:20: Lactic Acid 8.1 H* 06/23/22 10:36: pH 7.08 L*, Bicarbonate Actual 10.0 L, Base Excess -20 L, O2 Saturation 96, ABG pCO2 34.0 L, ABG pO2 117 H 06/23/22 11:12: pH 7.21 L, Bicarbonate Actual 16.3 L, Base Excess -12 L, O2 Saturation 100 H, ABG pCO2 41.0, ABG pO2 318 H* Rhythm: EKG: ECHO: Stress Test: Cardiac Cath: PCI: CT Surgery: Holter monitor: EPS: PPM: CXR: Chest CT Scan: Radiography Diagnostic Testing: Radiology Impression Chest X-Ray 06/23/22 10:13 IMPRESSION: The tip of the endotracheal tube is at 2.9 sinus proximal to the eboni. Electronically Signed: Ludin Askew MD at 10:54 EDT ,
[2022-06-23] MEDS: Clindamycin 900 MG/50 ML BAG 75 MG IV (12:00)
--- NOTE | 2022-06-23 13:46 | EX.PCM.CONCC ---
Assessment & Plan Assessment/Plan (1) CHB (complete heart block): PLAN: Plan RECOMMENDATIONS: 1. Continue assist-control mode mechanical ventilation. Wean FiO2/PEEP for saturations greater than 90%. 2. Initiate propofol and fentanyl for sedation. 3. Pepcid and Lovenox for DVT prophylaxis. 4. Additional medical management per cardiology. IMPRESSIONS: 1. Acute hypoxemic respiratory failure in the setting of third-degree AV block/cardiac arrest Plan to continue current supportive measures including invasive mechanical ventilatory support. The patient will be maintained on assist control mode of mechanical ventilation with FiO2 and PEEP weaned as tolerated. The patient is clinically stable at this time status post permanent pacemaker placement. Recommend initiation of propofol and fentanyl for sedation. Additional medical management per cardiology recommendations. 2. History of coronary artery disease status post CABG/recent TAVR The patient has a known history of coronary disease and recently underwent a TAVR at [facility]. In light of his presenting arrhythmia and need for pacemaker placement, transfer was initiated through the emergency department. However, a bed is not currently available. Accordingly, the patient will be transferred to the medical intensive care unit for postprocedure management until a bed becomes available. 3. History of mild, intermittent asthma/diabetes mellitus/hypertension/obesity Complicates care, management, recovery and prognosis. Initiate sliding scale insulin coverage for now. As needed bronchodilator therapy can also be utilized. TIME: 32 minutes of critical care time, independent of procedures, was spent addressing the patient's acute hypoxemic respiratory failure, third-degree AV block, cardiac arrest, review of all data and collaboration with the care team. HPI Consult Data Date of Consult: 06/24/22 HPI Narrative Reason for Consultation: Acute respiratory failure HPI Narrative: The patient is an 82-year-old male, with a history as outlined below, who presented to the emergency department today after being found unresponsive. According to documentation, the patient had a witnessed syncopal event this morning at approximately 8 AM. The patient has a known history of coronary artery disease status post CABG along with severe aortic stenosis and recent TAVR at [facility]. Upon presentation to the emergency department, the patient was noted to be hypertensive, tachypneic and hypoxemic. The patient was noted to be bradycardic with heart rates in the 30s, which was medically managed with atropine. During his emergency department stay, the patient experienced a bradycardic event with subsequent loss of pulses, which prompted ACLS to be initiated. Transcutaneous pacing was also instituted. The patient required endotracheal intubation. The patient's ACLS was treated with epinephrine with subsequent ROSC. The patient was evaluated by cardiology and taken to the [facility]. An emergent temporary pacemaker wire was placed. There was discussion about transfer to [facility] where his recent TAVR took place. However, the initial [facility] consultant felt that the patient was too unstable to be transferred with a temporary pacer wire. Therefore, a permanent pacemaker was placed. [facility] Medical History Atherosclerotic heart disease of [place] coronary artery without angina pectoris Bilateral carotid artery stenosis Cardiogenic shock Diabetes mellitus Essential hypertension History of DVT (deep vein thrombosis) History of pleural effusion Hyperlipidemia Kidney stone Nonrheumatic aortic (valve) stenosis Obesity Pericardial effusion with cardiac tamponade Peripheral vascular disease STEMI (ST elevation myocardial infarction) Home Medications cyanocobalamin (vitamin B-12) 1,000 mcg tablet 1,000 mcg PO DAILY Check with primary doctor 11/02/16 [History Last Taken Unknown] cholecalciferol (vitamin D3) 125 mcg (5,000 unit) capsule 5,000 unit PO DAILY Check with primary doctor 11/03/16 [History Last Taken Unknown] gabapentin 300 mg capsule 300 mg PO BID Check with primary doctor 12/15/17 [History Last Taken Unknown] metformin 500 mg tablet 500 mg PO BID Check with primary doctor 12/15/17 [History Last Taken Unknown] carvedilol 6.25 mg tablet 6.25 mg PO BID Check with primary doctor 12/17/17 [History Last Taken Unknown] clopidogrel 75 mg tablet 75 mg PO DAILY Check with primary doctor 04/27/19 [History Last Taken Unknown] nitroglycerin 0.4 mg sublingual tablet 0.4 mg sublingual Q5-15M PRN chest pain #25 tabs 08/18/19 [Rx Last Taken Unknown] empagliflozin 10 mg tablet (Jardiance) 10 mg PO DAILY Check with primary doctor 10/18/19 [History Last Taken Unknown] atorvastatin 40 mg tablet 40 mg PO QHS Check with primary doctor 11/15/20 [History Last Taken Unknown] furosemide 20 mg tablet 40 mg PO DAILY Check with primary doctor 11/15/20 [History Last Taken Unknown] albuterol sulfate 90 mcg/actuation aerosol inhaler 2 puff inhalation Q6H PRN Shortness Of Breath 11/19/20 [History Last Taken Unknown] fentanyl citrate (PF) 50 mcg/mL injection solution 50 mcg IV Q2H PRN PRN Pain >/= 4/10 or CPOT>/= 3/8 #0 mL 06/23/22 [Rx Last Taken Unknown] insulin aspart U-100 100 unit/mL (3 mL) subcutaneous pen (Novolog Flexpen U-100 Insulin aspart) See Rx Instructions .Route .COMPLEX Check with primary doctor 06/23/22 [History Last Taken Unknown] insulin glargine 100 unit/mL (3 mL) subcutaneous pen (Lantus Solostar U-100 Insulin) See Rx Instructions .Route .COMPLEX Check with primary doctor 06/23/22 [History Last Taken Unknown] losartan 25 mg tablet 25 mg PO QHS Check with primary doctor 06/23/22 [History Last Taken Unknown] propofol 10 mg/mL intravenous emulsion (Diprivan) 1,000 mg (100 mL) continuous IV infusion .Q12H #0 mL 06/23/22 [Rx Last Taken Unknown] Allergy/AdvReac Type Severity Reaction Status Date / Time amlodipine besylate Allergy Unknown Verified 06/23/22 11:11 [From Norvasc] carisoprodol [From Soma] Allergy Unknown Verified 06/23/22 11:11 cyclobenzaprine HCl Allergy Unknown Verified 06/23/22 11:11 [From Flexeril] doxycycline Allergy Unknown Verified 06/23/22 11:11 fosinopril Allergy Unknown Verified 06/23/22 11:11 gemfibrozil [From Lopid] Allergy Unknown Verified 06/23/22 11:11 Penicillins Allergy Unknown Verified 06/23/22 11:11 pravastatin sodium Allergy Unknown Verified 06/23/22 11:11 [From Pravachol] pregabalin [From Lyrica] Allergy Unknown Verified 06/23/22 11:11 Pkiesnd-XSE-XcT Reductase Allergy Unknown Verified 06/23/22 11:11 Inhibitor [Timapff-Iki-Eqb Reductase Inhibitor] tramadol AdvReac Severe Hallucinations,nausea, Verified 06/23/22 11:11 sweats and chills Family History Mother Cancer melanoma Sister Cancer ovarian Brother Cancer leukemia Surgical History History of heart artery stent (~08/2018) History of hernia repair History of tonsillectomy and adenoidectomy Postsurgical percutaneous transluminal coronary angioplasty (PTCA) status (~08/30/19) Presence of aortocoronary bypass graft (~01/09/16) Presence of stent in coronary artery (~08/31/18) Previous back surgery Status post left heart catheterization (LHC) (~02/13/19) Status post pericardiocentesis (~01/21/16) Status post wrist surgery Social History Smoking Status: Former smoker alcohol intake: never substance use type: does not use caffeine: Yes Type: carbonated beverages Number of servings: 4 ROS Review of Systems ROS Unobtainable: due to endotracheal tube Physical Exam Const no apparent distress General Appearance: intubated and patient mechanically ventilated Nutritional Appearance: obese HEENT normocephalic and head/scalp atraumatic Mouth: endotracheal tube in place and OG tube in place Eyes PERRL and conjunctivae normal Neck supple General: trachea midline Resp Auscultation: diminished lung sounds; Negative for rales, rhonchi or wheezes Cardio Cardio Narrative: Paced rhythm. GI normal to inspection, nondistended, normoactive bowel sounds Extremity no clubbing, cyanosis or edema Skin no rashes or lesions noted Neuro Sensorium / Orientation: sedated on vent Lab / Micro Data Result Diagrams: 06/23/22 10:10 06/23/22 10:10 Labs: Laboratory Results - last 24 hr 06/23/22 10:10: WBC 11.6 H, RBC 4.38 L, Hgb 14.4, Hct 42.4, MCV 96.8 H, MCH 32.9 H, MCHC 34.0, RDW Std Deviation 47.1 H, RDW Coeff of Rubén 13.1, Plt Count 149 L, MPV 11.3, Immature Gran % (Auto) 0.900, Neut % (Auto) 45.9 L, Lymph % (Auto) 44.8 H, [place] % (Auto) 6.2, Eos % (Auto) 1.5, Baso % (Auto) 0.7, Absolute Neuts (auto) 5.3, Absolute Lymphs (auto) 5.20 H, Nucleated RBC % 0 06/23/22 10:10: PT 13.5, INR 1.1, APTT > 90.0 H* 06/23/22 10:10: Sodium 132 L, Potassium 5.2 H, Chloride 101, Carbon Dioxide 15.0 L, Anion Gap 16 H, BUN 36 H, Creatinine 2.20 H, Estim Creat Clear Calc 27.57, Est GFR (MDRD) Af Amer 37 L, Est GFR (MDRD) Non-Af 31 L, BUN/Creatinine Ratio 16.4, Glucose 452 H*, Calcium 9.3, Troponin I High Sens 91 H 06/23/22 10:20: Lactic Acid 8.1 H* ABG Data ABG results: ABG 06/23/22 06/23/22 10:36 11:12 Specimen Type ART ART Sample Site L Brach pH 7.08 L* 7.21 L Bicarbonate Actual 10.0 L 16.3 L Total CO2 11 18 Base Excess -20 L -12 L O2 Saturation 96 100 H O2 % 60 ABG pCO2 34.0 L 41.0 ABG pO2 117 H 318 H* O2 Delivery Device Adult Vent Crit Call To/Read Back Yes Yes Blood Gas Notified Whom jk shannan Rhythm Strip Rhythm Strip: Asystole Radiology Impression Chest X-Ray 06/23/22 10:13 IMPRESSION: The tip of the endotracheal tube is at 2.9 sinus proximal to the eboni. Electronically Signed: Ludin Askew MD at 10:54 EDT , Charges/Coding Procedures Hospitalists Procedures: 20611 Critial Care 1st Hr
--- NOTE | 2022-06-23 14:07 | CL.IE_ITS ---
Patient: WILBER BRADY Study Date: 06/23/2022 Performing: Jose Clark MD : 1940 Age: 82 Gender: male PROCEDURES PERFORMED LP04-(80100)INITIAL PACER INSERT+DUAL LEADS INDICATIONS complete heart block PROCEDURE DETAILS The patient was brought to the Catheterization Lab in the postabsorptive nonsedated state. Informed consent was obtained prior to the procedure. Temporary pacemaker turned off, Temporary pacemaker was then removed Local anesthetic was given subcutaneously to the left jugular region with Lidocaine 2%. Access was achieved and a guidewire was advanced into the left subclavian vein. PPM ventricular lead was inserted / positioned to right ventricular septal wall. PPM atrial lead was inserted / positioned to the right atrial appendage. PPM atrial lead testing performed. PPM atrial lead was repositioned and checked. The Atrial and Ventricular leads sutured in place with 2-0 Silk. Device pocket was irrigated with antibiotic. PPM generator was attached to the lead(s) and inserted into the pocket. Subcutaneous closure was completed with 3-0 Vicryl. Skin closure was completed with 4-0 Vicryl. Steri-strips applied to left subclavicular incision. Instrument, sponge, and needle counts were noted to be normal. The patient tolerated the procedure well. Estimated Blood Loss: 50 ml's IMPLANTED / EX-PLANTED DEVICES IMPLANTED DEVICE(S): PPM Ventricular lead - [place]: [employer], Model # Tendril STS 58cm , Serial # [id number] Atrial lead - [place]: [employer] [place], Model # Tendril STS 52cm , Serial # [id number] PPM Generator - [place]: [employer] [place], Model # Assurity MRI Pulse generator , Serial # [id number] DEVICE PARAMETERS ATRIAL LEAD PARAMETERS: P wave- 4.5 (mV) Current- 0.5 (mA) threshold- 1.75 (V) impedence- 560 (OHMS) VENTRICULAR LEAD PARAMETERS: R wave- 7.3 (mV) Current- 3.5 (mA) threshold- 0.75 (V) impedence- 740 (OHMS) DEVICE PARAMETERS: Mode- DDD Lower rate- 60 Upper rate- 120 CONCLUSIONS / RECOMMENDATIONS Device Conclusions: Successful implantation of a dual chamber pacemaker Device Recommendations: Follow up with Primary Care Physician PROCEDURE MEDICATIONS Fentanyl 25 mcg PER HR Versed 2 mg IV Oxygen: 60 % FiO2 via ventilator. See Resp Record for Settings Antibiotic given in appropriate timeframe. Epinephrine 5 mg / 250ml D5W @ 1 mcg/min IV CONTINUED 06/23/2022 11:30:00 Sodium Bicarbonate 50meq/50ml 2 amp 06/23/2022 11:25:56 Signed By Jose Clark MD On 06/23/2022 14:07:00 Jose Clark MD
[2022-06-23 14:32] LABS: Reflex Lactate? Y
--- NOTE | 2022-06-23 14:54 | CHAPLAIN ---
Type of Pastoral Visit ___ Initial Visit ___ Follow-up Visit ___ On-call Visit ___ General Patient Visit ___ Spiritual Assessment ___ Family Conference ___ Bereavement ___ Rapid Response _x__ Code Blue ___ Other (describe below) Pastoral Care Referral From ___ Patient ___ Family ___ Nurse ___ Physician ___ Undertaker Helper ___ Insulation Helper _x__ Other (describe below) Sacrament/Intervention _x__ Active listening ___ Anointing ___ Restorationism ___ Bereavement ___ Communion ___ Alena exploration ___ _x__ Life review _x__ Prayer ___ Reconciliation ___ Sacrament of Sick _x__ Supportive presence ___ Wedding ___ Other (describe below) Pastoral Comments responded to code blue and met up with family as they were going to the [facility] for medical intervention; hand off from to electroplater for support at this time; sat with family members and gave presence, opportunity for reflection and life review, time for refreshments, and checking on status of procedure; was available when doctors came to meet with family, ongoing support, follow up to be made later this day for family and patient
--- NOTE | 2022-06-23 15:40 | PCM.DC.SUM ---
Providers Date of Admission: 06/23/22 Date of Discharge: 06/23/22 Primary Care Physician: Dr. Angel Weinberg MD Consultations 06/23/22 14:55 Consult: Cardiology Routine Consulting Provider: Booker Coyle Reason for Consult: Complete heart block EMERGENT Consult: Yes Notified: Yes Date Notified: 06/23/22 Time Notified: 11:11 Method of Notification: ED Physician Initiated Consult: Sponsorship Coordinator / Pulmonary Medicine Routine Consulting Provider: Pulmonary Medicine beth Henderson Reason for Consult: VENT MANAGEMENT EMERGENT Consult: No Notified: Yes Date Notified: 06/23/22 Time Notified: 11:11 Method of Notification: Verbal Reason For Visit: UNRESPONSIVE Diagnosis Discharge Diagnosis (1) CHB (complete heart block): Status: Acute Code(s): I44.2 - Atrioventricular block, complete (2) Cardiac arrest: Status: Acute Code(s): I46.9 - Cardiac arrest, cause unspecified Plan Patient IS AN 82 M with past medical history significant for coronary artery disease with previous CABG valvular heart disease with severe aortic stenosis who underwent TAVR at [facility] 5 days prior to his admission was brought to the emergency department after he became unresponsive at home following a syncopal episode. EMS apparently found patient to be in a complete heart block transcutaneous pacing was initiated on the field. He apparently lost a pulse patient was successfully resuscitated using ACLS protocol with ROSC. Transferred to the emergency department intubated and subsequently transferred to the [facility] where patient underwent permanent pacemaker placement 1. Third-degree AV block ? Patient underwent emergency Transvenous temporary pacemaker which was later converted to permanent pacemaker 3. Cardiopulmonary arrest ? Patient rhythm was found to be asystolic resuscitated using ACLS protocol with ROSC. Intubated and admitted to the intensive care unit. Consult placed to pulmonary/critical care for vent management 3. Valvular heart disease ? With severe aortic stenosis patient underwent TAVR at [facility] 5 days prior to his admission 4. Acute respiratory failure ? Following patient cardiopulmonary arrest patient was intubated and admitted to the intensive care unit management of patient events defer to pulmonary/critical care 5. Coronary artery disease ? With previous CABG 6. History of mild intermittent asthma ? Patient is managed by pulmonary medicine as outpatient 7. 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 Status post pericardiocentesis 8. Diabetes mellitus type 2 ? Patient blood glucose control not optimal did continue with long-acting insulin in addition to Accu-Cheks every 6 with sliding scale coverage 9. Dyslipidemia -Patient is on statin therapy, continued at home dose 10. Hypertension - Blood pressure controlled, home medications continued with dose adjustment as needed 11. Class I obesity with BMI of 31.2 12. Kidney disease stage III ? Kidney function at baseline 13. History of previous DVT ? Stable 14. DVT prophylaxis ? SC Lovenox Call has been placed from the emergency department prior to patient being admitted to the [facility]. Patient underwent TAVR 5 days prior to his admission. Patient was accepted for transfer. Patient was transferred to [facility] once bed and transportation became available Medications at Discharge Home Medications cyanocobalamin (vitamin B-12) 1,000 mcg tablet 1,000 mcg PO DAILY Check with primary doctor 11/02/16 cholecalciferol (vitamin D3) 125 mcg (5,000 unit) capsule 5,000 unit PO DAILY Check with primary doctor 11/03/16 gabapentin 300 mg capsule 300 mg PO BID Check with primary doctor 12/15/17 metformin 500 mg tablet 500 mg PO BID Check with primary doctor 12/15/17 carvedilol 6.25 mg tablet 6.25 mg PO BID Check with primary doctor 12/17/17 clopidogrel 75 mg tablet 75 mg PO DAILY Check with primary doctor 04/27/19 nitroglycerin 0.4 mg sublingual tablet 0.4 mg sublingual Q5-15M PRN chest pain #25 tabs 08/18/19 empagliflozin 10 mg tablet (Jardiance) 10 mg PO DAILY Check with primary doctor 10/18/19 atorvastatin 40 mg tablet 40 mg PO QHS Check with primary doctor 11/15/20 furosemide 20 mg tablet 40 mg PO DAILY Check with primary doctor 11/15/20 albuterol sulfate 90 mcg/actuation aerosol inhaler 2 puff inhalation Q6H PRN Shortness Of Breath 11/19/20 fentanyl citrate (PF) 50 mcg/mL injection solution 50 mcg IV Q2H PRN PRN Pain >/= 4/10 or CPOT>/= 3/8 #0 mL 06/23/22 insulin aspart U-100 100 unit/mL (3 mL) subcutaneous pen (Novolog Flexpen U-100 Insulin aspart) See Rx Instructions .Route .COMPLEX Check with primary doctor 06/23/22 insulin glargine 100 unit/mL (3 mL) subcutaneous pen (Lantus Solostar U-100 Insulin) See Rx Instructions .Route .COMPLEX Check with primary doctor 06/23/22 losartan 25 mg tablet 25 mg PO QHS Check with primary doctor 06/23/22 propofol 10 mg/mL intravenous emulsion (Diprivan) 1,000 mg (100 mL) continuous IV infusion .Q12H #0 mL 06/23/22 Hospital Course Procedures Intubation Summary of Care Provided Minutes Spent on Discharge: 85 Physical Exam Narrative GENERAL: Patient on the vent HEENT: ET tube in place EYES; Anicteric, Normal Conjunctiva NECK; supple, normal thyroid, RESPIRATORY: Diminished to auscultation CARDIOVASCULAR: Regular S1 S2, GI: soft, normoactive bowel sounds, : No Renal angle tenderness; EXTREMITIES: No edema, no clubbing, MUSCULOSKELETAL: no muscle wasting NEURO: Patient on the vent SKIN: No Rash Weight / BMI Weight Weight: 99.926 kg Body Mass Index (BMI) 32.5 ABG / Lab / Microbiology Data Result Diagrams: 06/23/22 10:10 06/23/22 10:10 Laboratory: Laboratory Results - last 24 hr 06/23/22 10:10: WBC 11.6 H, RBC 4.38 L, Hgb 14.4, Hct 42.4, MCV 96.8 H, MCH 32.9 H, MCHC 34.0, RDW Std Deviation 47.1 H, RDW Coeff of Rubén 13.1, Plt Count 149 L, MPV 11.3, Immature Gran % (Auto) 0.900, Neut % (Auto) 45.9 L, Lymph % (Auto) 44.8 H, [place] % (Auto) 6.2, Eos % (Auto) 1.5, Baso % (Auto) 0.7, Absolute Neuts (auto) 5.3, Absolute Lymphs (auto) 5.20 H, Nucleated RBC % 0 06/23/22 10:10: PT 13.5, INR 1.1, APTT > 90.0 H* 06/23/22 10:10: Sodium 132 L, Potassium 5.2 H, Chloride 101, Carbon Dioxide 15.0 L, Anion Gap 16 H, BUN 36 H, Creatinine 2.20 H, Estim Creat Clear Calc 27.57, Est GFR (MDRD) Af Amer 37 L, Est GFR (MDRD) Non-Af 31 L, BUN/Creatinine Ratio 16.4, Glucose 452 H*, Calcium 9.3, Troponin I High Sens 91 H 06/23/22 10:20: Lactic Acid 8.1 H* ABG: ABG 06/23/22 06/23/22 10:36 11:12 Specimen Type ART ART Sample Site L Brach pH 7.08 L* 7.21 L Bicarbonate Actual 10.0 L 16.3 L Total CO2 11 18 Base Excess -20 L -12 L O2 Saturation 96 100 H O2 % 60 ABG pCO2 34.0 L 41.0 ABG pO2 117 H 318 H* O2 Delivery Device Adult Vent Crit Call To/Read Back Yes Yes Blood Gas Notified Whom daniela olivia Radiography Diagnostic Testing: Radiology Impression Chest X-Ray 06/23/22 10:13 IMPRESSION: The tip of the endotracheal tube is at 2.9 sinus proximal to the eboni. Electronically Signed: Ludin Askew MD at 10:54 EDT Reading Location ID and State: [facility] / [place] , Service support , Meaningful Use Info Meaningful Use Diagnoses (Choose all that apply): None applicable Discharge Plan Admission Admit Date/Time: 06/23/22 11:05 Attending Provider: Mable Olivia Primary Care Provider: Angel Weinberg Consulting Providers: Celina Forman ; Mable Olivia ; Nabor Finch ; Megha Dominguez ; Jose Clark ; Sudhir Ivan ; Christine,Bulmaro ; Deisy Cadena ; Shu,Aubrey ; Tasha,Carlenehaiefrain ; Cara Newton ; Freddie Persaud ; Jermaine Lew ; Rian Degroot ; Angel Ny SENIOR BUSINESS PROCESS ANALYST ; Celina Miranda NP ; Roselyn Beard ; Connie Reyes ; Harjit Bhatti ; Akbar Fallon ; Eloy John ; Abdulaziz Hopkins ; sAhanti Kaplan SENIOR BUSINESS PROCESS ANALYST Discharge Orders/Prescriptions Prescriptions: New fentanyl citrate (PF) 50 mcg/mL Solution 50 mcg IV Q2H PRN PRN (Reason: Pain >/= 4/10 or CPOT>/= 3/8) Qty: 0 0RF propofol [Diprivan] 10 mg/mL Emulsion 1,000 mg continuous IV infusion .Q12H Qty: 0 0RF Continued carvedilol 6.25 mg tablet 6.25 mg PO BID metformin 500 mg tablet 500 mg PO BID gabapentin 300 mg capsule 300 mg PO BID nitroglycerin 0.4 mg tablet, sublingual 0.4 mg SUBLINGUAL Q5-15M PRN (Reason: chest pain) Qty: 25 3RF albuterol sulfate 90 mcg/actuation HFA aerosol inhaler 2 puff INHALATION Q6H PRN (Reason: Shortness Of Breath) atorvastatin 40 mg tablet 40 mg PO QHS furosemide 20 mg tablet 40 mg PO DAILY cyanocobalamin (vitamin B-12) 1,000 MCG tablet 1,000 mcg PO DAILY cholecalciferol (vitamin D3) 5,000 UNIT capsule 5,000 unit PO DAILY clopidogrel 75 MG tablet 75 mg PO DAILY losartan 25 mg tablet 25 mg PO QHS insulin aspart U-100 [Novolog Flexpen U-100 Insulin] 100 unit/mL (3 mL) insulin pen See Rx Instructions .ROUTE .COMPLEX Rx Instructions: 18-22 UNITS WITH BREAKAST, LUNCH, AND DINNER insulin glargine [Lantus Solostar U-100 Insulin] 100 unit/mL (3 mL) insulin pen See Rx Instructions .ROUTE .COMPLEX Rx Instructions: 25-30 units at bedtime Jardiance 10 mg tablet 10 mg PO DAILY Referrals / Follow Up: Angel Weinberg MD [Primary Care Provider] - Within 2 Weeks (After discharge from [facility]) Disposition Disposition (needs filled in before D/C Order can be placed): [facility] Charges/Coding Visit Charges OBSV E&M: 63631 Observ/hosp same date L3
[2022-06-23 15:52] LABS: Lactic Acid 2.3 mmol/L (0.4-1.9)
[2022-06-23] MEDS: Insulin Lispro 100 UNIT/ML INSULN.PEN SC (15:55)
--- NOTE | 2022-06-23 16:02 | CHAPLAIN ---
Type of Pastoral Visit ___ Initial Visit ___ Follow-up Visit ___ On-call Visit ___ General Patient Visit ___ Spiritual Assessment ___ Family Conference ___ Bereavement ___ Rapid Response ___ Code Blue ___ Other (describe below) Pastoral Care Referral From ___ Patient ___ Family ___ Nurse ___ Physician ___ Waste Water Plant Operator ___ Conciliator ___ Other (describe below) Sacrament/Intervention ___ Active listening ___ Anointing ___ Jewish ___ Bereavement ___ Communion ___ Alena exploration ___ ___ Life review ___ Prayer ___ Reconciliation ___ Sacrament of Sick ___ Supportive presence ___ Wedding ___ Other (describe below) Pastoral Comments follow up with family and patient in ICU following the procedure and the helicopter transfer to [place]; offer of support
--- NOTE | 2022-06-23 16:24 | NURSING ---
Patient D/C'd via [facility] [employer] personnel at this time
--- NOTE | 2022-06-23 16:30 | NURSING ---
report called to MICHAEL Prater at [facility] [id number]
[2022-06-23 20:19] LABS: CPK Total, Creatine Kinase 121 U/L (39-308); Triglycerides 130 mg/dL
[2022-06-24 00:51] LABS: Bedside Glucose 213 mg/dL (74-106)
== END 2022-06-23 16:24 | disposition short-term general hospital (02) | DRG 242 ==
LOC: ED 10:11 → CLSP 10:36 → ICU 14:19
PROVIDERS: Emergency Medicine; Internal Medicine; Admitting Provider Internal Medicine Cardiovascular Disease; Emergency Provider Emergency Medicine; PCP Family Medicine; Visit Provider Internal Medicine Cardiovascular Disease
DX: I44.2 Atrioventricular block, complete (principal); I46.9 Cardiac arrest, cause unspecified; J96.01 Acute respiratory failure with hypoxia; E11.51 Type 2 diabetes mellitus with diabetic peripheral angiopathy without gangrene; Z79.4 Long term (current) use of insulin; N18.30 Chronic kidney disease, stage 3 unspecified; E11.22 Type 2 diabetes mellitus with diabetic chronic kidney disease; I12.9 Hypertensive chronic kidney disease with stage 1 through stage 4 chronic kidney disease, or unspecified chronic kidney disease; I35.0 Nonrheumatic aortic (valve) stenosis; E78.5 Hyperlipidemia, unspecified; I25.10 Atherosclerotic heart disease of native coronary artery without angina pectoris; J45.20 Mild intermittent asthma, uncomplicated; I25.2 Old myocardial infarction; E66.9 Obesity, unspecified; Z68.31 Body mass index [BMI] 31.0-31.9, adult; Z95.2 Presence of prosthetic heart valve; Z95.5 Presence of coronary angioplasty implant and graft; Z79.02 Long term (current) use of antithrombotics/antiplatelets; Z79.84 Long term (current) use of oral hypoglycemic drugs; Z79.899 Other long term (current) drug therapy; Z86.718 Personal history of other venous thrombosis and embolism; Z87.891 Personal history of nicotine dependence
CPT/HCPCS: 31500; 33208; 33210; 36600; 71045; 80048; 82550; 82803; 82962; 83605; 84478; 84484; 85025; 85610; 85730; 87070; 87205; 92950; 93005; 93308; 94002; 99152; 99285; J7030; J7040; J7050; A4216; C1894; J0330; J2405; J3010

== ENCOUNTER → 2023-01-06 | Outpatient (CLI) | payer MEDICARE, SELFPAY ==
[2023-01-06 08:56] LABS: Bacteria 0 SEEN /hpf (None Seen); Mucous, Urine 0 SEEN /hpf (<or=2+); Red Blood Cells-Urine 0 SEEN /hpf (0-5); Squamous Epithelial Cells - UA 0 SEEN /hpf (0-5); White Blood Cells 0 SEEN /hpf (0-5)
[2023-01-06 10:32] LABS: Absolute Lymphocyte Count 1.63 X10^3/uL (0.83-4.51); Absolute Neutrophil Count 3.2 X10^3/uL (2.0-7.7); Basophil# 0.06 X10^3/uL; Basophil% 1.1 % (0-1); Eosinophil# 0.23 X10^3/uL; Eosinophils% 4.1 % (0-5); Hematocrit 48.1 % (40-54); Hemoglobin 15.3 g/dL (13.0-16.5); Lymphocyte # 1.63 X10^3/ul (0.83-4.51); Mean Corp Hgb Conc 31.8 g/dL (32-36); Mean Corpuscular Hgb 31.7 pg (27.0-32.0); Mean Corpuscular Volume 99.8 fL (80-94); Mean Platelet Vol. 10.9 fl (6.2-12.0); Monocyte# 0.49 X10^3/uL; Monocyte% 8.7 % (0-10); NRBC Flagged by Analyzer 0 % (0-5); Neutrophil # 3.21 X10^3/uL (2.7-7.7); Neutrophil % 56.9 % (47-70); Platelet Count 160 K/mm3 (150-450); RBC Distribution Width CV 13.2 % (11.6-14.6); Red Blood Count 4.82 M/mm3 (4.6-6.2); White Blood Count 5.6 K/mm3 (4.4-11.0)
[2023-01-06 10:55] LABS: PTHIN 109.4 pg/mL (18.4-80.1)
[2023-01-06 11:02] LABS: Vitamin B12 593 pg/mL (211-911)
[2023-01-06 11:04] LABS: Microalbumin:Creatinine Ratio 45.1 mg/g CRE (<30 mg/g CRE); Protein, Urine (Random) 13.9 mg/dL (<11.9); Protein:Creat Ratio 196 mg/g CRE (0-200)
[2023-01-06 11:12] LABS: ALB/GLOB Ratio 1.1 RATIO (0.9-2.4); AST(SGOT) 38 U/L (15-37); Alanine Aminotransfer ALT/SGPT 55 U/L (16-61); Albumin, Serum 3.7 g/dL (3.2-5.0); Alkaline Phosphatase 106 U/L (45-117); Anion Gap 6 (5-15); BUN 30 mg/dL (7-18); BUN/Creat Ratio 24.2 RATIO (10-20); CPK Total, Creatine Kinase 134 U/L (39-308); Calcium,Total 9.2 mg/dL (8.5-10.1); Chloride 111 mmol/L (98-107); Cholesterol 87 mg/dL (200); Creatinine, Serum 1.24 mg/dL (0.70-1.30); EST Glomerular Filtration Rate 59 mL/min (>60); Est Glom Filt Rate - Afr Amer 72 mL/min (>60); Ferritin 101 ng/mL (26-388); Globulin 3.5 g/dL (2.2-4.2); Glucose 108 mg/dL (74-106); High Density Lipoprotein 36 mg/dL; Magnesium 2.1 mg/dL (1.6-2.6); Phosphorus 3.3 mg/dL (2.5-4.9); Potassium 4.7 mmol/L (3.5-5.1); Protein, Total 7.2 g/dL (6.4-8.2); Sodium Level 142 mmol/L (136-145); Triglycerides 107 mg/dL; Very Low Density Lipoprotein 21 mg/dL (5-40)
[2023-01-06 11:13] LABS: Hemoglobin A1c 6.8 % (3.8-5.6)
[2023-01-06 17:52] LABS: Color, Urine Yellow (Yellow); Glucose, Dipstick 1000 mg/dl (Normal); Ketone-Dipstick Negative (Negative); Leukocyte Esterase-Dipstick Negative /ul (Negative); Nitrite-Dipstick Negative (Negative); Occult Blood-Urine Negative /ul (Negative); Protein-Dipstick 15 mg/dl (Negative); Specific Gravity, Urine 1.015 (1.002-1.030); Urine Bilirubin Dipstick Negative (Negative); Urine Clarity Clear (Clear); Urine Urobilinogen Normal (Normal)
[2023-01-10 00:06] LABS: VITAMIN B6 12.5 ug/L (3.4-65.2); Vitamin B1, Thiamine 157.2 nmol/L (66.5-200.0)
== END | disposition home or self-care (01) ==
LOC: MTLAB 08:45
PROVIDERS: PCP Family Medicine; Referring Provider Family Medicine; Visit Provider Family Medicine
DX: E11.22 Type 2 diabetes mellitus with diabetic chronic kidney disease (principal); E11.49 Type 2 diabetes mellitus with other diabetic neurological complication; E11.69 Type 2 diabetes mellitus with other specified complication; N18.30 Chronic kidney disease, stage 3 unspecified; E55.9 Vitamin D deficiency, unspecified; E53.8 Deficiency of other specified B group vitamins; R25.2 Cramp and spasm
CPT/HCPCS: 80053; 80061; 81001; 82043; 82306; 82550; 82570; 82607; 82728; 83036; 83735; 83970; 84100; 84156; 84207; 84425; 85025

== ENCOUNTER → 2023-01-11 | Outpatient (CLI) | payer MEDICARE, SELFPAY ==
--- NOTE | 2023-01-11 10:53 | US_ITS ---
INDICATION: urinary retention EXAMINATION: Ultrasound US Post Void Residual Urine/Bladder TECHNIQUE: Duque scale and color doppler imaging was performed of the urinary bladder. COMPARISON: None. FINDINGS: No stones, masses, or wall thickening. Pre-void volume is 199 cc. Post-void volume is 43 cc. Post-void residual is 21.6%. US/Post Void Residual Bladder IMPRESSION: As above. Electronically Signed: Steve Walker MD at 16:26 EDT ,
== END | disposition home or self-care (01) ==
LOC: US 10:52
PROVIDERS: PCP Family Medicine; Referring Provider Family Medicine; Visit Provider Family Medicine
DX: R33.9 Retention of urine, unspecified (principal)
CPT/HCPCS: 51798

== ENCOUNTER → 2023-01-28 | Outpatient (CLI) | payer MEDICARE, SELFPAY ==
--- NOTE | 2023-01-28 12:40 | RAD_ITS ---
HISTORY: PAIN. TECHNIQUE: XR Shoulder Min 2 Views. COMPARISON: None. FINDINGS: BONES : No acute fracture identified. Chronic left third, seventh, and eighth rib fractures. JOINTS: No dislocation. Mild degenerative change with small ossification of the greater tuberosity. SOFT TISSUES: Cardiac pacemaker, midline sternotomy, coronary artery disease, and valve replacement noted. RAD/Shoulder min 2 Views IMPRESSION: No acute fracture or dislocation identified in the left shoulder. Mild degenerative change and calcific tendinitis. Old left rib fractures. Electronically Signed: Lanny Sharp MD at 9:26 EDT ,
--- NOTE | 2023-01-28 12:40 | RAD_ITS ---
HISTORY: PAIN. TECHNIQUE: XR Shoulder Min 2 Views. COMPARISON: 01/19/2020. FINDINGS: BONES : No acute fracture identified. Chronic bone island of the humeral neck. JOINTS: No dislocation. Mild-moderate degenerative change. SOFT TISSUES: Unremarkable right lung apex. RAD/Shoulder min 2 Views IMPRESSION: No acute fracture or dislocation identified in the right shoulder. Osteoarthritis, similar to prior. Electronically Signed: Lanny Sharp MD at 9:29 EDT ,
== END | disposition home or self-care (01) ==
LOC: MTRAD 12:39
PROVIDERS: PCP Family Medicine; Referring Provider Family Medicine; Visit Provider Family Medicine
DX: M25.511 Pain in right shoulder (principal); M25.512 Pain in left shoulder
CPT/HCPCS: 73030

== ENCOUNTER → 2023-05-11 | Outpatient (CLI) | payer MEDICARE, SELFPAY ==
[2023-05-11 12:21] LABS: Absolute Lymphocyte Count 1.62 X10^3/uL (0.83-4.51); Absolute Neutrophil Count 3.8 X10^3/uL (2.0-7.7); Basophil# 0.04 X10^3/uL; Basophil% 0.6 % (0-1); Eosinophil# 0.23 X10^3/uL; Eosinophils% 3.6 % (0-5); Hematocrit 45.3 % (40-54); Hemoglobin 15.1 g/dL (13.0-16.5); Lymphocyte # 1.62 X10^3/ul (0.83-4.51); Lymphocyte % 25.5 % (19-41); Mean Corp Hgb Conc 33.3 g/dL (32-36); Mean Corpuscular Hgb 33.1 pg (27.0-32.0); Mean Corpuscular Volume 99.3 fL (80-94); Mean Platelet Vol. 11.3 fl (6.2-12.0); Monocyte# 0.65 X10^3/uL; Monocyte% 10.2 % (0-10); NRBC Flagged by Analyzer 0 % (0-5); Neutrophil % 59.8 % (47-70); Platelet Count 137 K/mm3 (150-450); RBC Distribution Width CV 13.2 % (11.6-14.6); RBC Distribution Width SD 48.4 fl (35.1-43.9); Red Blood Count 4.56 M/mm3 (4.6-6.2); White Blood Count 6.4 K/mm3 (4.4-11.0)
[2023-05-11 12:40] LABS: Vitamin B12 798 pg/mL (211-911); Vitamin D,25 Hydroxy 40.6 ng/mL
[2023-05-11 12:49] LABS: AST(SGOT) 26 U/L (15-37); Alanine Aminotransfer ALT/SGPT 35 U/L (16-61); Albumin, Serum 3.4 g/dL (3.2-5.0); Alkaline Phosphatase 109 U/L (45-117); Anion Gap 6 (5-15); BUN 28 mg/dL (7-18); BUN/Creat Ratio 20.7 RATIO (10-20); Calcium,Total 8.8 mg/dL (8.5-10.1); Chloride 104 mmol/L (98-107); Cholesterol 83 mg/dL (200); Creatinine, Serum 1.35 mg/dL (0.70-1.30); EST Glomerular Filtration Rate 54 mL/min (>60); Est Glom Filt Rate - Afr Amer 65 mL/min (>60); Globulin 3.5 g/dL (2.2-4.2); Glucose 275 mg/dL (74-106); High Density Lipoprotein 34 mg/dL; Phosphorus 3.7 mg/dL (2.5-4.9); Potassium 4.7 mmol/L (3.5-5.1); Protein, Total 6.9 g/dL (6.4-8.2); Sodium Level 135 mmol/L (136-145); Thyroid Stim Hormone (TSH) 1.85 uIU/mL (0.358-3.74); Triglycerides 175 mg/dL; Very Low Density Lipoprotein 35 mg/dL (5-40)
[2023-05-11 13:03] LABS: Hemoglobin A1c 7.5 % (3.8-5.6)
[2023-05-11 17:38] LABS: Color, Urine Yellow (Yellow); Glucose, Dipstick 1000 mg/dl (Normal); Ketone-Dipstick Negative (Negative); Leukocyte Esterase-Dipstick 25 /ul (Negative); Nitrite-Dipstick Negative (Negative); Occult Blood-Urine Negative /ul (Negative); Protein-Dipstick Negative (Negative); Urine Bilirubin Dipstick Negative (Negative); Urine Clarity Clear (Clear); Urine Urobilinogen Normal (Normal)
[2023-05-11 17:57] LABS: Bacteria 0 SEEN /hpf (None Seen); Mucous, Urine 0 SEEN /hpf (<or=2+); Red Blood Cells-Urine 0 SEEN /hpf (0-5); Squamous Epithelial Cells - UA 0-5 SEEN /hpf (0-5); White Blood Cells 0-5 SEEN /hpf (0-5)
[2023-05-11 18:18] LABS: Microalbumin,Random Urine 7.5 mg/L (NO RANGE EST.); Microalbumin:Creatinine Ratio 22.1 mg/g CRE (<30 mg/g CRE); Protein, Urine (Random) < 6.0 mg/dL (<11.9)
[2023-05-15 00:06] LABS: VITAMIN B6 24.4 ug/L (3.4-65.2); Vitamin B1, Thiamine 181.4 nmol/L (66.5-200.0)
== END | disposition home or self-care (01) ==
LOC: MFPLAB 11:11
PROVIDERS: PCP Family Medicine; Visit Provider Family Medicine
DX: E11.49 Type 2 diabetes mellitus with other diabetic neurological complication (principal); E11.22 Type 2 diabetes mellitus with diabetic chronic kidney disease; E11.21 Type 2 diabetes mellitus with diabetic nephropathy; E53.9 Vitamin B deficiency, unspecified; N18.9 Chronic kidney disease, unspecified; E55.9 Vitamin D deficiency, unspecified
CPT/HCPCS: 80053; 80061; 81001; 82043; 82306; 82570; 82607; 83036; 84100; 84156; 84207; 84425; 84443; 85025

== ENCOUNTER → 2023-07-29 | Outpatient (CLI) | payer MEDICARE, SELFPAY ==
[2023-07-29 12:09] LABS: Mucous, Urine 0 SEEN /hpf (<or=2+); Red Blood Cells-Urine 0 SEEN /hpf (0-5)
[2023-07-29 16:01] LABS: Microalbumin,Random Urine 9.7 mg/L (NO RANGE EST.); Microalbumin:Creatinine Ratio 27.1 mg/g CRE (<30 mg/g CRE); Protein, Urine (Random) 6.5 mg/dL (<11.9); Protein:Creat Ratio 183 mg/g CRE (0-200)
[2023-07-29 16:04] LABS: Color, Urine Yellow (Yellow); Glucose, Dipstick 1000 mg/dl (Normal); Ketone-Dipstick Negative (Negative); Leukocyte Esterase-Dipstick Negative /ul (Negative); Nitrite-Dipstick Negative (Negative); Occult Blood-Urine Negative /ul (Negative); Protein-Dipstick Negative (Negative); Urine Bilirubin Dipstick Negative (Negative); Urine Clarity Clear (Clear); Urine Urobilinogen Normal (Normal)
[2023-07-29 16:22] LABS: Absolute Lymphocyte Count 1.77 X10^3/uL (0.83-4.51); Absolute Neutrophil Count 3.5 X10^3/uL (2.0-7.7); Basophil# 0.07 X10^3/uL; Basophil% 1.1 % (0-1); Eosinophil# 0.24 X10^3/uL; Eosinophils% 3.9 % (0-5); Hematocrit 47.6 % (40-54); Hemoglobin 15.4 g/dL (13.0-16.5); Lymphocyte # 1.77 X10^3/ul (0.83-4.51); Lymphocyte % 28.5 % (19-41); Mean Corp Hgb Conc 32.4 g/dL (32-36); Mean Corpuscular Hgb 31.8 pg (27.0-32.0); Mean Corpuscular Volume 98.1 fL (80-94); Mean Platelet Vol. 11.2 fl (6.2-12.0); Monocyte# 0.59 X10^3/uL; Monocyte% 9.5 % (0-10); NRBC Flagged by Analyzer 0 % (0-5); Neutrophil # 3.54 X10^3/uL (2.7-7.7); Neutrophil % 56.8 % (47-70); Platelet Count 150 K/mm3 (150-450); RBC Distribution Width CV 12.8 % (11.6-14.6); RBC Distribution Width SD 46.1 fl (35.1-43.9); Red Blood Count 4.85 M/mm3 (4.6-6.2); White Blood Count 6.2 K/mm3 (4.4-11.0)
[2023-07-29 16:30] LABS: Bacteria RARE /hpf (None Seen); Squamous Epithelial Cells - UA 0-5 SEEN /hpf (0-5); White Blood Cells 0-5 SEEN /hpf (0-5)
[2023-07-29 16:43] LABS: ALB/GLOB Ratio 1.1 RATIO (0.9-2.4); AST(SGOT) 37 U/L (15-37); Alanine Aminotransfer ALT/SGPT 48 U/L (16-61); Albumin, Serum 3.8 g/dL (3.2-5.0); Alkaline Phosphatase 117 U/L (45-117); Anion Gap 7 (5-15); BUN 34 mg/dL (7-18); BUN/Creat Ratio 25.8 RATIO (10-20); Calcium,Total 8.9 mg/dL (8.5-10.1); Chloride 107 mmol/L (98-107); Cholesterol 97 mg/dL (200); Creatinine, Serum 1.32 mg/dL (0.70-1.30); EST Glomerular Filtration Rate 55 mL/min (>60); Est Glom Filt Rate - Afr Amer 67 mL/min (>60); Globulin 3.5 g/dL (2.2-4.2); Glucose 203 mg/dL (74-106); High Density Lipoprotein 35 mg/dL; Phosphorus 3.9 mg/dL (2.5-4.9); Potassium 4.6 mmol/L (3.5-5.1); Protein, Total 7.3 g/dL (6.4-8.2); Sodium Level 135 mmol/L (136-145); Triglycerides 143 mg/dL; Very Low Density Lipoprotein 29 mg/dL (5-40)
[2023-07-29 16:47] LABS: Vitamin B12 650 pg/mL (211-911); Vitamin D,25 Hydroxy 35.1 ng/mL
[2023-08-04 06:09] LABS: VITAMIN B6 11.4 ug/L (3.4-65.2); Vitamin B1, Thiamine 160.5 nmol/L (66.5-200.0)
== END | disposition home or self-care (01) ==
LOC: MFPLAB 11:52
PROVIDERS: PCP Family Medicine; Visit Provider Family Medicine
DX: E53.9 Vitamin B deficiency, unspecified (principal); E11.22 Type 2 diabetes mellitus with diabetic chronic kidney disease; E55.9 Vitamin D deficiency, unspecified; N18.9 Chronic kidney disease, unspecified
CPT/HCPCS: 36415; 80053; 80061; 81001; 82043; 82306; 82570; 82607; 83036; 84100; 84156; 84207; 84425; 85025

== ENCOUNTER → 2023-11-23 | Outpatient (CLI) | payer MEDICARE, SELFPAY ==
[2023-11-23 11:16] LABS: Bacteria 0 SEEN /hpf (None Seen); Mucous, Urine 0 SEEN /hpf (<or=2+); Red Blood Cells-Urine 0 SEEN /hpf (0-5); White Blood Cells 0 SEEN /hpf (0-5)
[2023-11-23 12:28] LABS: Color, Urine Yellow (Yellow); Glucose, Dipstick 1000 mg/dl (Normal); Ketone-Dipstick Negative (Negative); Leukocyte Esterase-Dipstick Negative /ul (Negative); Nitrite-Dipstick Negative (Negative); Occult Blood-Urine Negative /ul (Negative); Protein-Dipstick Negative (Negative); Specific Gravity, Urine 1.015 (1.002-1.030); Urine Bilirubin Dipstick Negative (Negative); Urine Clarity Clear (Clear); Urine Urobilinogen Normal (Normal)
[2023-11-23 12:39] LABS: Absolute Lymphocyte Count 1.65 X10^3/uL (0.83-4.51); Absolute Neutrophil Count 4.2 X10^3/uL (2.0-7.7); Basophil# 0.07 X10^3/uL; Eosinophil# 0.31 X10^3/uL; Eosinophils% 4.5 % (0-5); Hematocrit 43.8 % (40-54); Hemoglobin 14.7 g/dL (13.0-16.5); Lymphocyte # 1.65 X10^3/ul (0.83-4.51); Mean Corp Hgb Conc 33.6 g/dL (32-36); Mean Corpuscular Hgb 32.4 pg (27.0-32.0); Mean Corpuscular Volume 96.5 fL (80-94); Mean Platelet Vol. 11.5 fl (6.2-12.0); Monocyte# 0.63 X10^3/uL; Monocyte% 9.2 % (0-10); NRBC Flagged by Analyzer 0 % (0-5); Neutrophil # 4.16 X10^3/uL (2.7-7.7); Neutrophil % 60.4 % (47-70); Platelet Count 150 K/mm3 (150-450); RBC Distribution Width CV 13.1 % (11.6-14.6); Red Blood Count 4.54 M/mm3 (4.6-6.2); White Blood Count 6.9 K/mm3 (4.4-11.0)
[2023-11-23 12:40] LABS: Squamous Epithelial Cells - UA 0-5 SEEN /hpf (0-5)
[2023-11-23 12:55] LABS: Microalbumin,Random Urine 24.1 mg/L (NO RANGE EST.); Microalbumin:Creatinine Ratio 39.8 mg/g CRE (<30 mg/g CRE); Protein, Urine (Random) 9.8 mg/dL (<11.9); Protein:Creat Ratio 162 mg/g CRE (0-200)
[2023-11-23 13:04] LABS: PTHIN 106.7 pg/mL (18.4-80.1)
[2023-11-23 13:05] LABS: Vitamin B12 719 pg/mL (211-911); Vitamin D,25 Hydroxy 41.3 ng/mL
[2023-11-23 13:06] LABS: ALB/GLOB Ratio 1.1 RATIO (0.9-2.4); AST(SGOT) 25 U/L (15-37); Alanine Aminotransfer ALT/SGPT 31 U/L (16-61); Albumin, Serum 3.5 g/dL (3.2-5.0); Alkaline Phosphatase 98 U/L (45-117); Anion Gap 6 (5-15); BUN 32 mg/dL (7-18); BUN/Creat Ratio 21.2 RATIO (10-20); Calcium,Total 9.4 mg/dL (8.5-10.1); Chloride 107 mmol/L (98-107); Cholesterol 93 mg/dL (200); Creatinine, Serum 1.51 mg/dL (0.70-1.30); EST Glomerular Filtration Rate 47 mL/min (>60); Est Glom Filt Rate - Afr Amer 57 mL/min (>60); Globulin 3.3 g/dL (2.2-4.2); Glucose 262 mg/dL (74-106); High Density Lipoprotein 33 mg/dL; Magnesium 2.1 mg/dL (1.6-2.6); Phosphorus 3.9 mg/dL (2.5-4.9); Potassium 4.8 mmol/L (3.5-5.1); Protein, Total 6.8 g/dL (6.4-8.2); Sodium Level 139 mmol/L (136-145); Triglycerides 241 mg/dL; Very Low Density Lipoprotein 48 mg/dL (5-40)
[2023-11-23 13:09] LABS: Hemoglobin A1c 8.2 % (3.8-5.6)
[2023-11-30 12:09] LABS: Vitamin B1, Thiamine 168.2 nmol/L (66.5-200.0)
== END | disposition home or self-care (01) ==
LOC: MFPLAB 11:14
PROVIDERS: PCP Family Medicine; Visit Provider Family Medicine
DX: N18.9 Chronic kidney disease, unspecified (principal); E11.22 Type 2 diabetes mellitus with diabetic chronic kidney disease; E21.3 Hyperparathyroidism, unspecified; E53.9 Vitamin B deficiency, unspecified; E55.9 Vitamin D deficiency, unspecified
CPT/HCPCS: 36415; 80053; 80061; 81001; 82043; 82306; 82570; 82607; 83036; 83735; 83970; 84100; 84156; 84425; 85025

== ENCOUNTER → 2024-04-04 | Outpatient (CLI) | payer MEDICARE, SELFPAY ==
[2024-04-04 11:23] LABS: Bacteria 0 SEEN /hpf (None Seen); Mucous, Urine 0 SEEN /hpf (<or=2+)
[2024-04-04 15:11] LABS: Absolute Lymphocyte Count 1.52 X10^3/uL (0.83-4.51); Absolute Neutrophil Count 3.9 X10^3/uL (2.0-7.7); Basophil# 0.04 X10^3/uL; Basophil% 0.7 % (0-1); Eosinophil# 0.23 X10^3/uL; Eosinophils% 3.8 % (0-5); Hematocrit 41.8 % (40-54); Hemoglobin 13.5 g/dL (13.0-16.5); Lymphocyte # 1.52 X10^3/ul (0.83-4.51); Mean Corp Hgb Conc 32.3 g/dL (32-36); Mean Corpuscular Hgb 32.5 pg (27.0-32.0); Mean Corpuscular Volume 100.5 fL (80-94); Mean Platelet Vol. 11.2 fl (6.2-12.0); Monocyte# 0.41 X10^3/uL; Monocyte% 6.8 % (0-10); NRBC Flagged by Analyzer 0 % (0-5); Neutrophil # 3.86 X10^3/uL (2.7-7.7); Neutrophil % 63.5 % (47-70); Platelet Count 153 K/mm3 (150-450); RBC Distribution Width CV 13.2 % (11.6-14.6); RBC Distribution Width SD 48.9 fl (35.1-43.9); Red Blood Count 4.16 M/mm3 (4.6-6.2); White Blood Count 6.1 K/mm3 (4.4-11.0)
[2024-04-04 15:12] LABS: Color, Urine Yellow (Yellow); Glucose, Dipstick 1000 mg/dl (Normal); Ketone-Dipstick Negative (Negative); Leukocyte Esterase-Dipstick Negative /ul (Negative); Nitrite-Dipstick Negative (Negative); Occult Blood-Urine Negative /ul (Negative); Protein-Dipstick Negative (Negative); Urine Bilirubin Dipstick Negative (Negative); Urine Clarity Clear (Clear); Urine Urobilinogen Normal (Normal)
[2024-04-04 15:21] LABS: Red Blood Cells-Urine 0-5 SEEN /hpf (0-5); Squamous Epithelial Cells - UA 0-5 SEEN /hpf (0-5); White Blood Cells 0-5 SEEN /hpf (0-5)
[2024-04-04 15:30] LABS: Vitamin B12 593 pg/mL (211-911); Vitamin D,25 Hydroxy 45.4 ng/mL
[2024-04-04 15:31] LABS: Hemoglobin A1c 6.8 % (3.8-5.6)
[2024-04-04 15:34] LABS: PTHIN 134.1 pg/mL (18.4-80.1)
[2024-04-04 15:39] LABS: Protein, Urine (Random) 6.1 mg/dL (<11.9); Protein:Creat Ratio 149 mg/g CRE (0-200)
[2024-04-04 16:18] LABS: Cholesterol 79 mg/dL (200); Ferritin 136 ng/mL (26-388); High Density Lipoprotein 34 mg/dL; Iron 85 ug/dL (65-175); Iron Binding Capacity,Total 293 ug/dL (250-450); Magnesium 2.1 mg/dL (1.6-2.6); Phosphorus 3.9 mg/dL (2.5-4.9); Triglycerides 148 mg/dL; Very Low Density Lipoprotein 30 mg/dL (5-40)
== END | disposition home or self-care (01) ==
LOC: MFPLAB 11:21
PROVIDERS: PCP Family Medicine; Visit Provider Family Medicine
DX: D64.9 Anemia, unspecified (principal); E11.22 Type 2 diabetes mellitus with diabetic chronic kidney disease; N18.9 Chronic kidney disease, unspecified
CPT/HCPCS: 36415; 80061; 81001; 82306; 82570; 82607; 82728; 82746; 83036; 83540; 83550; 83735; 83970; 84100; 84156; 85025

== ENCOUNTER → 2024-04-11 | Outpatient (CLI) | payer MEDICARE, SELFPAY ==
[2024-04-11 11:12] LABS: AST(SGOT) 25 U/L (15-37); Alanine Aminotransfer ALT/SGPT 40 U/L (16-61); Albumin, Serum 3.4 g/dL (3.2-5.0); Alkaline Phosphatase 133 U/L (45-117); Anion Gap 8 (5-15); BUN 32 mg/dL (7-18); BUN/Creat Ratio 19.3 RATIO (10-20); Calcium,Total 9.6 mg/dL (8.5-10.1); Chloride 108 mmol/L (98-107); Creatinine, Serum 1.66 mg/dL (0.70-1.30); EST Glomerular Filtration Rate 42 mL/min (>60); Est Glom Filt Rate - Afr Amer 51 mL/min (>60); Globulin 3.5 g/dL (2.2-4.2); Glucose 334 mg/dL (74-106); Potassium 5.3 mmol/L (3.5-5.1); Protein, Total 6.9 g/dL (6.4-8.2); Sodium Level 135 mmol/L (136-145)
== END | disposition home or self-care (01) ==
LOC: MFPLAB 09:03
PROVIDERS: PCP Family Medicine; Visit Provider Family Medicine
DX: E11.59 Type 2 diabetes mellitus with other circulatory complications (principal)
CPT/HCPCS: 36415; 80053

== ENCOUNTER → 2024-04-20 | Outpatient (CLI) | payer MEDICARE, SELFPAY ==
[2024-04-20 15:56] LABS: Anion Gap 6 (5-15); BUN 31 mg/dL (7-18); BUN/Creat Ratio 22.5 RATIO (10-20); Calcium,Total 9.4 mg/dL (8.5-10.1); Chloride 107 mmol/L (98-107); Creatinine, Serum 1.38 mg/dL (0.70-1.30); EST Glomerular Filtration Rate 52 mL/min (>60); Est Glom Filt Rate - Afr Amer 63 mL/min (>60); Glucose 288 mg/dL (74-106); Potassium 5.1 mmol/L (3.5-5.1); Sodium Level 136 mmol/L (136-145)
== END | disposition home or self-care (01) ==
LOC: MFPLAB 11:14
PROVIDERS: PCP Family Medicine; Visit Provider Family Medicine
DX: I10 Essential (primary) hypertension (principal); E11.59 Type 2 diabetes mellitus with other circulatory complications
CPT/HCPCS: 36415; 80048

== ENCOUNTER → 2024-05-08 | Outpatient (CLI) | payer MEDICARE, SELFPAY ==
[2024-05-08 10:50] LABS: Anion Gap 7 (5-15); BUN 41 mg/dL (7-18); BUN/Creat Ratio 26.8 RATIO (10-20); Calcium,Total 9.1 mg/dL (8.5-10.1); Chloride 108 mmol/L (98-107); Creatinine, Serum 1.53 mg/dL (0.70-1.30); EST Glomerular Filtration Rate 46 mL/min (>60); Est Glom Filt Rate - Afr Amer 56 mL/min (>60); Glucose 217 mg/dL (74-106); Potassium 4.8 mmol/L (3.5-5.1); Sodium Level 138 mmol/L (136-145)
== END | disposition home or self-care (01) ==
LOC: MFPLAB 08:57
PROVIDERS: PCP Family Medicine; Visit Provider Family Medicine
DX: I10 Essential (primary) hypertension (principal)
CPT/HCPCS: 36415; 80048

== ENCOUNTER → 2024-08-22 | Outpatient (CLI) | payer MEDICARE, SELFPAY ==
--- NOTE | 2024-08-22 13:34 | RAD_ITS ---
STUDY: X-RAY CHEST REASON FOR EXAM: Male, 84 years old. cough TECHNIQUE: PA and lateral views of the chest. COMPARISON: 06/23/2022 FINDINGS: Interval placement of left subclavian pacemaker. Status post median sternotomy. Suspect transcatheter aortic valve replacement. The lungs are clear and expanded. There is no demonstrated pleural abnormality. Normal size heart. Normal mediastinum and akyy. Normal visualized pulmonary arteries. Normal visualized aortic arch and descending thoracic aorta. Normal visualized thoracic spine. Multiple healed bilateral rib fractures. There is no demonstrated abnormality of the visualized soft tissue structures of the upper abdomen. RAD/Chest PA and Lateral IMPRESSION: No active disease. Electronically Signed: Alessandro House MD at 0:11 EST ,
== END | disposition home or self-care (01) ==
LOC: MTRAD 13:34
PROVIDERS: PCP Family Medicine; Referring Provider Family Medicine; Visit Provider Family Medicine
DX: R05.9 Cough, unspecified (principal)
CPT/HCPCS: 71046

== ENCOUNTER → 2024-09-06 | Outpatient (CLI) | payer MEDICARE, SELFPAY ==
[2024-09-06 10:59] LABS: Bacteria 0 SEEN /hpf (None Seen); Mucous, Urine 0 SEEN /hpf (<or=2+); Red Blood Cells-Urine 0 SEEN /hpf (0-5)
[2024-09-06 12:19] LABS: Absolute Lymphocyte Count 1.38 X10^3/uL (0.83-4.51); Absolute Neutrophil Count 4.5 X10^3/uL (2.0-7.7); Basophil# 0.07 X10^3/uL; Eosinophil# 0.15 X10^3/uL; Eosinophils% 2.2 % (0-5); Hemoglobin 13.2 g/dL (13.0-16.5); Lymphocyte # 1.38 X10^3/ul (0.83-4.51); Lymphocyte % 20.2 % (19-41); Mean Corp Hgb Conc 32.2 g/dL (32-36); Mean Corpuscular Hgb 32.4 pg (27.0-32.0); Mean Corpuscular Volume 100.7 fL (80-94); Mean Platelet Vol. 11.1 fl (6.2-12.0); Monocyte# 0.65 X10^3/uL; Monocyte% 9.5 % (0-10); NRBC Flagged by Analyzer 0 % (0-5); Neutrophil # 4.54 X10^3/uL (2.7-7.7); Neutrophil % 66.7 % (47-70); Platelet Count 218 K/mm3 (150-450); RBC Distribution Width CV 13.4 % (11.6-14.6); RBC Distribution Width SD 49.4 fl (35.1-43.9); Red Blood Count 4.07 M/mm3 (4.6-6.2); White Blood Count 6.8 K/mm3 (4.4-11.0)
[2024-09-06 12:42] LABS: PTHIN 42.9 pg/mL (18.4-80.1)
[2024-09-06 12:44] LABS: Vitamin B12 993 pg/mL (211-911); Vitamin D,25 Hydroxy 48.3 ng/mL
[2024-09-06 13:03] LABS: ALB/GLOB Ratio 0.9 RATIO (0.9-2.4); AST(SGOT) 26 U/L (15-37); Alanine Aminotransfer ALT/SGPT 49 U/L (16-61); Albumin, Serum 3.1 g/dL (3.2-5.0); Alkaline Phosphatase 110 U/L (45-117); Anion Gap 4 (5-15); BUN 34 mg/dL (7-18); BUN/Creat Ratio 24.3 RATIO (10-20); Calcium,Total 9.1 mg/dL (8.5-10.1); Chloride 109 mmol/L (98-107); Cholesterol 86 mg/dL (200); EST Glomerular Filtration Rate 51 mL/min (>60); Est Glom Filt Rate - Afr Amer 62 mL/min (>60); Globulin 3.6 g/dL (2.2-4.2); Glucose 342 mg/dL (74-106); High Density Lipoprotein 36 mg/dL; Potassium 5.2 mmol/L (3.5-5.1); Protein, Total 6.7 g/dL (6.4-8.2); Sodium Level 137 mmol/L (136-145); Triglycerides 137 mg/dL; Very Low Density Lipoprotein 27 mg/dL (5-40)
[2024-09-06 16:06] LABS: Color, Urine Yellow (Yellow); Glucose, Dipstick 1000 mg/dl (Normal); Ketone-Dipstick Negative (Negative); Leukocyte Esterase-Dipstick 25 /ul (Negative); Nitrite-Dipstick Negative (Negative); Occult Blood-Urine Negative /ul (Negative); Protein-Dipstick Negative (Negative); Urine Bilirubin Dipstick Negative (Negative); Urine Clarity Sl. Cloudy (Clear); Urine Urobilinogen Normal (Normal)
[2024-09-06 16:27] LABS: Microalbumin,Random Urine 5.2 mg/L (NO RANGE EST.); Microalbumin:Creatinine Ratio 11.4 mg/g CRE (<30 mg/g CRE); Protein, Urine (Random) < 6.0 mg/dL (<11.9)
[2024-09-06 18:27] LABS: Squamous Epithelial Cells - UA 0-5 SEEN /hpf (0-5); White Blood Cells 0-5 SEEN /hpf (0-5)
[2024-09-14 03:07] LABS: VITAMIN B6 19.4 ug/L (3.4-65.2)
== END | disposition home or self-care (01) ==
PROVIDERS: PCP Family Medicine; Referring Provider Family Medicine; Visit Provider Family Medicine
DX: E53.9 Vitamin B deficiency, unspecified (principal); E11.8 Type 2 diabetes mellitus with unspecified complications; E21.3 Hyperparathyroidism, unspecified; E55.9 Vitamin D deficiency, unspecified
CPT/HCPCS: 80053; 80061; 81001; 82043; 82306; 82570; 82607; 83036; 83970; 84156; 84207; 84425; 85025

== ENCOUNTER → 2024-09-12 | Outpatient (CLI) | payer MEDICARE, SELFPAY ==
[2024-09-12 13:25] LABS: Anion Gap 9 (5-15); BUN 29 mg/dL (7-18); BUN/Creat Ratio 19.7 RATIO (10-20); Calcium,Total 9.5 mg/dL (8.5-10.1); Chloride 109 mmol/L (98-107); Creatinine, Serum 1.47 mg/dL (0.70-1.30); EST Glomerular Filtration Rate 48 mL/min (>60); Est Glom Filt Rate - Afr Amer 59 mL/min (>60); Glucose 335 mg/dL (74-106); Potassium 4.8 mmol/L (3.5-5.1); Sodium Level 138 mmol/L (136-145)
== END | disposition home or self-care (01) ==
PROVIDERS: PCP Family Medicine; Referring Provider Family Medicine; Visit Provider Family Medicine
DX: E11.59 Type 2 diabetes mellitus with other circulatory complications (principal)
CPT/HCPCS: 36415; 80048

== ENCOUNTER → 2024-11-09 | Outpatient (CLI) | payer MEDICARE, SELFPAY ==
--- NOTE | 2024-11-09 15:01 | VDLE_ITS ---
Reason For Study Reason For Study: Left leg swelling RIGHT LEFT CFV is compressible, spontaneous, phasic, competent GSV is normal. and demonstrates normal augmentation. CFV is compressible, spontaneous, phasic, competent, Procedure and demonstrates normal augmentation. This is a venous duplex using B-mode, color flow and FV is compressible, spontaneous, phasic, competent spectral Doppler. and demonstrates normal augmentation. Exam performed in department. POP V is compressible, spontaneous, phasic, competent A preliminary report was called and/or faxed to and demonstrates normal augmentation. Sultana. T/P Trunk is compressible. PTV is compressible. LT PerV is compressible. VL/Venous Duplex US, Unilateral Interpretation Summary Deep veins of the left lower extremity are patent and compressible segmentally. There is no evidence of left lower extremity deep vein thrombosis. Valvular competence appears intact within the p roximal deep venous system on the left . The left great saphenous vein appears patent and compressible segmentally. The right common femoral vein is patent and compressible . Ordering Physician: Angel Weinberg Referring Physician: Angel Weinberg Performed By: Maddy Davison RVT
== END | disposition home or self-care (01) ==
PROVIDERS: PCP Family Medicine; Referring Provider Family Medicine; Visit Provider Family Medicine
DX: M79.89 Other specified soft tissue disorders (principal)
CPT/HCPCS: 93971

== ENCOUNTER → 2024-11-22 | Outpatient (CLI) | payer MEDICARE, SELFPAY ==
--- NOTE | 2024-11-22 14:55 | RAD_ITS ---
PROCEDURE: CHEST PA AND LATERAL 11/22/2024 REASON FOR EXAM: SOB TECHNIQUE: Frontal and lateral views of the chest. COMPARISON: 08/22/2024 FINDINGS: The lungs appear clear. Pulmonary vascularity appears within limits. No pleural effusion. 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 Cardiac and mediastinal contours appear within limits. Atherosclerotic changes at the aortic arch again noted. Old rib fracture deformities again seen. RAD/Chest PA and Lateral IMPRESSION: No evidence of acute disease. Reading Location: [id number]
[2024-11-22 18:13] LABS: Anion Gap 12 (5-15); BUN 35 mg/dL (4-19); BUN/Creat Ratio 24.6 RATIO (10-20); Calcium,Total 9.2 mg/dL (7.6-11.0); Carbon Dioxide 21.4 mmol/L (21.0-32.0); Chloride 102 mmol/L (98-108); Creatinine, Serum 1.42 mg/dL (0.70-1.20); EST Glomerular Filtration Rate 49 (>60); Glucose 142 mg/dL (70-99); Potassium 4.8 mmol/L (3.3-5.1); Sodium Level 136 mmol/L (133-145)
== END | disposition home or self-care (01) ==
LOC: MTLAB 14:48
PROVIDERS: PCP Family Medicine; Referring Provider Family Medicine; Visit Provider Family Medicine
DX: R06.02 Shortness of breath (principal)
CPT/HCPCS: 36415; 71046; 80048

== ENCOUNTER → 2025-01-09 | Outpatient (CLI) | payer MEDICARE, SELFPAY ==
--- NOTE | 2025-01-09 11:42 | RAD_ITS ---
PROCEDURE: LUMBAR SPINE 2 OR 3 VIEWS 01/09/2025 REASON FOR EXAM: PAIN, RADICULOPATHY TECHNIQUE: 2 view(s) of the lumbar spine AP and lateral COMPARISON: None available FINDINGS: 5 [id number] lumbar vertebral body types identified. No fracture or malalignment. Flowing anterior osteophyte formation greatest at L2-3. L3-4 [id number] disc space narrowing and degenerative endplate change L4-5 moderate disc space narrowing and degenerative endplate change. Bilateral appearing facet degenerative changes. Aortoiliac atherosclerotic calcification. RAD/Lumbar Spine 2 or 3 Views IMPRESSION: Spondylosis/discogenic change as above. Reading Location: [id number]
--- NOTE | 2025-01-09 11:43 | RAD_ITS ---
PROCEDURE: KNEE 3 VIEWS 01/09/2025 REASON FOR EXAM: PAIN TECHNIQUE: 3 view(s) of the left knee AP, lateral and sunrise FINDINGS: No fracture or dislocation. Small joint effusion is noted. The joint spaces appear within limits. Enthesophyte formation quadriceps side of the patella appears mild. Surgical clips at the medial knee soft tissues. Vascular calcification noted. RAD/Knee 3 Views IMPRESSION: Small joint effusion is noted. Reading Location: [id number]
--- NOTE | 2025-01-09 11:43 | RAD_ITS ---
PROCEDURE: KNEE 3 VIEWS 01/09/2025 REASON FOR EXAM: PAIN TECHNIQUE: 3 view(s) of the right knee; AP, lateral and sunrise FINDINGS: No fracture or dislocation. [id number] appearing joint effusion. The joint spaces appear within limits. Moderate enthesophyte formation quadriceps side of the patella. Vascular calcifications noted. RAD/Knee 3 Views IMPRESSION: [id number] appearing joint effusion. Reading Location: [id number]
--- NOTE | 2025-01-09 11:44 | RAD_ITS ---
PROCEDURE: HIPS B/L MIN 2 VIEWS W/ PELVIS 01/09/2025 REASON FOR EXAM: HIP PAIN TECHNIQUE: AP pelvis, two views right and two views left hip, 5 total images FINDINGS: Bilateral symmetric appearing SI joints and pubic symphysis appear within limits. No fracture or dislocation. Patient is rotated to the left. Vascular calcifications noted. Right hip joint space appears within limits. Mild appearing left hip osteoarthrosis, joint space narrowing. RAD/Hips B/L min 2 views w/ Pelvis IMPRESSION: Mild appearing left hip osteoarthrosis, joint space narrowing. Reading Location: [id number]
[2025-01-09 16:04] LABS: ALB/GLOB Ratio 1.4 RATIO (0.9-2.4); AST(SGOT) 30 U/L (<=37); Alanine Aminotransfer ALT/SGPT 27 U/L (<=46); Albumin, Serum 4.1 g/dL (3.4-4.8); Alkaline Phosphatase 101 U/L (40-129); Anion Gap 10 (5-15); BUN 40 mg/dL (4-19); BUN/Creat Ratio 26.1 RATIO (10-20); Calcium,Total 9.6 mg/dL (7.6-11.0); Carbon Dioxide 23.2 mmol/L (21.0-32.0); Chloride 106 mmol/L (98-108); Creatinine, Serum 1.54 mg/dL (0.70-1.20); EST Glomerular Filtration Rate 44 (>60); Globulin 2.9 g/dL (2.2-4.2); Glucose 143 mg/dL (70-99); Potassium 5.5 mmol/L (3.3-5.1); Sodium Level 139 mmol/L (133-145); Total Bilirubin 0.45 mg/dL (0.00-1.30)
[2025-01-09 17:44] LABS: Erythrocyte Sedimentation Rate 13 mm/hr (0-20)
== END | disposition home or self-care (01) ==
LOC: MTLAB 11:41
PROVIDERS: PCP Family Medicine; Referring Provider Family Medicine; Visit Provider Family Medicine
DX: M54.16 Radiculopathy, lumbar region (principal); R53.1 Weakness; M25.551 Pain in right hip; M25.552 Pain in left hip; M25.561 Pain in right knee; M25.562 Pain in left knee
CPT/HCPCS: 36415; 72100; 73521; 73562; 80053; 85652

== ENCOUNTER → 2025-01-16 | Outpatient (CLI) | payer MEDICARE, SELFPAY ==
[2025-01-16 12:42] LABS: Potassium 4.8 mmol/L (3.3-5.1)
== END | disposition home or self-care (01) ==
LOC: MFPLAB 09:24
PROVIDERS: PCP Family Medicine; Referring Provider Family Medicine; Visit Provider Family Medicine
DX: E87.5 Hyperkalemia (principal)
CPT/HCPCS: 36415; 84132

== ENCOUNTER 2025-02-07 12:45 | Emergency (ER) | payer MEDICARE, SELFPAY ==
[2025-02-07 12:46] VITALS: BP 148/99; PULSE 64; RESP 14; TEMP 35.6; O2SAT 97; BMI 31.6
--- NOTE | 2025-02-07 13:05 | EKG12_ITS ---
Test Reason : Blood Pressure : */* mmHG Vent. Rate : 61 BPM Atrial Rate : 61 BPM P-R Int : 296 ms QRS Dur : 132 ms QT Int : 408 ms P-R-T Axes : * 64 201 degrees QTcB Int : 410 ms Atrial-paced rhythm with prolonged AV conduction Non-specific intra-ventricular conduction block T wave abnormality, consider lateral ischemia Abnormal ECG Confirmed by GLORY ROCHA, ABIGAIL ([id number]), video news editor CRISTIAN HENRY ([id number]) on 02/09/2025 1:00:51 PM Referred By: Confirmed By: ABIGAIL HOLDER MD
--- NOTE | 2025-02-07 13:08 | EDS_ITS ---
HPI History of Present Illness Chief Complaint: Weakness Detail of Chief Complaint: Dizziness and feeling off balance Informant: patient and family Narrative Narrative: Patient presents to the emergency department with complaint of feeling dizzy today. Patient states that he had an episode that started suddenly last night when he stood up from the dinner table around 7 PM. He checked his blood pressure and his systolic was 99 and diastolic over 55. Patient states he had symptoms for about 15 minutes and then resolved completely. Today again was working outside when he had sudden onset of symptoms again. He describes vertigo type symptoms. He got nauseated. [place] off balance. He went and saw his primary care physician who referred him to the emergency department as patient feeling off balance and he has not positive Romberg test in the office. He had orthostatic vital signs in the office that were negative. Patient denies chest pain or shortness of breath. Denies ear pain or headache. [facility] Medical History (Updated 02/07/25 @ 14:[address] Chrissy Escoto, DO) Presence of permanent cardiac pacemaker (~06/23/22) History of transcatheter aortic valve replacement (TAVR) (~06/18/22) History of left heart catheterization (LHC) (~06/02/22) Obesity Nonrheumatic aortic (valve) stenosis Essential hypertension Bilateral carotid artery stenosis History of DVT (deep vein thrombosis) History of pleural effusion Cardiogenic shock Pericardial effusion with cardiac tamponade Atherosclerotic heart disease of [place] coronary artery without angina pectoris STEMI (ST elevation myocardial infarction) Peripheral vascular disease Kidney stone Hyperlipidemia Diabetes mellitus Home Medications ?Medication ?Instructions ?Recorded ?Last Taken ?Type cyanocobalamin (vitamin B-12) 1,000 mcg PO DAILY Check with 11/02/16 Unknown History 1,000 mcg tablet primary doctor cholecalciferol (vitamin D3) 125 5,000 unit PO DAILY C heck with 11/03/16 Unknown History mcg (5,000 unit) capsule primary doctor gabapentin 300 mg capsule 300 mg PO BID Check with kt pineda 12/15/17 Unknown H istory doctor metformin 500 mg tablet 500 mg PO BID Check with kt pineda 12/15/17 Unknown History doctor carvedilol 6.25 mg tablet 6.25 mg PO BID Check with pr imary 12/17/17 Unknown History doctor clopidogrel 75 mg tablet 75 mg PO DAILY Check with pr imary 04/27/19 Unknown History doctor nitroglycerin 0.4 mg sublingual 0.4 mg sublingual Q5-1 5M PRN chest 08/18/19 Unknown Rx tablet pain #25 tabs empagliflozin 10 mg tablet 10 mg PO DAILY Check with p nishaary 10/18/19 Unknown History (Jardiance) doctor atorvastatin 40 mg tablet 40 mg PO QHS Check with prim jin 11/15/20 Unknown History doctor albuterol sulfate 90 mcg/actuation 2 puff inhalation Q 6H PRN 11/19/20 Unknown History aerosol inhaler Shortness Of Breath insulin aspart U-100 100 unit/mL See Rx Instructions . Route 06/23/22 Unknown History (3 mL) subcutaneous pen (Novolog .COMPLEX Check with p jack doctor FlexPen U-100 Insulin aspart) acetaminophen 325 mg tablet 650 mg PO Q6H PRN 07/09/22 Unknown History aspirin 81 mg tablet,delayed 81 mg PO DAILY 07/09/22 U nknown History release (Adult Low Dose Aspirin) furosemide 20 mg tablet 20 mg PO DAILY 07/09/22 Unkn own History insulin glargine 100 unit/mL (3 30 unit subcut QPM Eilsabeth ck with 07/09/22 Unknown History mL) subcutaneous pen (Lantus primary doctor Solostar U-100 Insulin) ipratropium bromide 42 mcg (0.06 2 spray intranasal DA KRYSTAL PRN 07/09/22 Unknown History %) nasal spray allergy symptoms oxycodone 5 mg tablet 2.5 mg PO TID PRN 07/09/22 U nknown History meclizine 25 mg tablet 25 mg PO TID PRN dizziness # 14 tabs 02/07/25 Unknown Rx ondansetron 4 mg disintegrating 4 mg PO Q8H PRN PRN Na usea #10 tabs 02/07/25 Unknown Rx tablet Allergy/AdvReac Type Severity Reaction Status Date / Time amlodipine besylate (From Allergy Unknown Verified 02/07/25 12:47 Norvasc) carisoprodol (From Soma) Allergy Unknown Verified 02/07/25 12:47 cyclobenzaprine HCl (From Allergy Unknown Verified 02/07/25 12:47 Flexeril) doxycycline Allergy Unknown Verified 02/07/25 12:47 fosinopril Allergy Unknown Verified 02/07/25 12:47 gemfibrozil (From Lopid) Allergy Unknown Verified 02/07/25 12:47 Penicillins Allergy Unknown Verified 02/07/25 12:47 pravastatin sodium (From Allergy Unknown Verified 02/07/25 12:47 Pravachol) pregabalin (From Lyrica) Allergy Unknown Verified 02/07/25 12:47 Bazlqgo-[id number] Reductase Allergy Unknown Verified 02/07/25 12:47 Inhibitor (Crevcto-Bup-Mox Reductase Inhibitor) tramadol AdvReac Severe Hallucinations,nausea, Verified 02/07/25 12:47 sweats and chills Family History Mother Cancer melanoma Sister Cancer ovarian Brother Cancer leukemia Surgical History Status post left heart catheterization (LHC) (~02/13/19) Status post wrist surgery Postsurgical percutaneous transluminal coronary angioplasty (PTCA) status (~08/30/19) History of tonsillectomy and adenoidectomy History of hernia repair Previous back surgery Status post pericardiocentesis (~01/21/16) Presence of aortocoronary bypass graft (~01/09/16) Presence of stent in coronary artery (~08/31/18) History of heart artery stent (~08/2018) Social History Smoking Status: Former smoker alcohol intake: never substance use type: does not use caffeine: Yes Type: carbonated beverages Number of servings: 4 ROS ROS ED Review of Systems ROS Unobtainable: other Constitutional Constitutional ED: Reports lethargy; Denies chills, fever(s), sweats or weight loss Eyes Eyes: Denies blurry vision, change in vision or diplopia ENT ENT ED: Denies rhinorrhea or sore throat Cardiovascular Cardiovascular: Denies chest pain, orthopnea or racing heartbeat Respiratory/Chest Respiratory/Chest: Denies cough, dyspnea, dyspnea on exertion, orthopnea or sputum Gastrointestinal Gastrointestinal: Reports nausea; Denies abdominal pain, diarrhea or vomiting Genitourinary Genitourinary ED: Denies dysuria, hematuria or urinary frequency Musculoskeletal Musculoskeletal: Denies arthralgias, back pain, myalgias or neck pain Integumentary Denies abscess, Abrasions or rash Neurologic Neurologic: Reports other Details: Dizziness ; Denies headache(s) or weakness Psychiatric Psychiatric: Denies anxiety, depression or suicidal thoughts Endocrine Endocrinology: Denies polydipsia, polyphagia or polyuria Hematologic/Lymphatic Hematologic/Lymphatic: Denies easy bleeding, easy bruising or lymphadenopathy Allergic/Immunologic Allergic/Immunologic ED: Denies mouth swelling, tongue swelling or urticaria EXAM Physical Exam Const Vital Signs: 02/07/25 12:46 02/07/25 12:46 Temperature 96.1 F L Temperature Source Temporal Pulse Rate 64 Respiratory Rate 14 Respiratory Effort Normal Respiratory Pattern Normal Blood Pressure 148/99 H Blood Pressure Mean 115 Pulse Ox 97 Oxygen Delivery Method Room Air Positive well nourished and well developed General Appearance ED: well developed and NAD HEENT Reports TM's clear and moist mucous membranes normocephalic and atraumatic; Negative for trauma or tenderness Tympanic Membrane ED: Yes TM's clear Eyes PERRL and EOMs intact bilaterally General Eye ED: Negative for pale conjunctiva or scleral icterus Neck no lymphadenopathy, supple and no JVD General: Negative for tenderness Chest Wall inspection of chest normal and palpation of chest normal Chest: Negative for tenderness Resp normal respiratory effort and clear to auscultation bilaterally Effort and Inspection: Negative for respiratory distress or pain with movement Auscultation: Negative for rhonchi, wheezes or diminished lung sounds Cardio regular rate, regular rhythm, S1 normal heart sound, S2 normal heart sound and no murmurs Peripheral Pulses: pulses 2+ throughout GI normal to inspection, nondistended, normoactive bowel sounds, soft to palpation, non-tender, non-distended and no masses Back/Spine no CVA tenderness and no thoracic nor lumbar tenderness Extremity normal to inspection General Extremety ED: Negative for edema General Extremity: Negative for edema Neuro oriented x3, CN's II-XII intact bilaterally, no sensory deficits noted and gait normal Neuro Narrative: Finger-nose and heel burton testing within normal limits. Hallpike maneuver performed and he was symptomatic with the head turn to the right although I did not appreciate significant nystagmus. He was not symptomatic with head turn to the left. Sensorium / Orientation: awake, alert, oriented to person, oriented to place and oriented to time Motor Exam: strength 5/5 throughout and strength abnormal Psych mental status grossly normal Skin no rashes or lesions noted and no wounds MDM MDM MDM Narrative Medical decision making narrative: Patient presents from his primary care physician's office with dizziness and concern for possible central cause. On exam here he is symptomatic with Hallpike maneuver when head turn to the right but do not appreciate any significant nystagmus. He states that his dizziness resolved yesterday after about 15 minutes and was asymptomatic until symptoms started again around 11:00 this morning. Patient denies any focal weakness. Denies vision change. Denies difficulty with speech. Clinically looks well and his NIH stroke scale is 0 on arrival. EKG obtained arrival showed atrially paced rhythm with prolonged AV conduction and nonspecific ST changes. CBC with differential obtained showed a white count of 7.1 with hemoglobin 13 and platelet count of 181. Chemistries showed an elevated potassium of 5.8 however he chronically tends to have an louisa vated potassium. BUN of 48 creat 1.58 which is around baseline for him. There were no EKG changes related to hyperkalemia. Family is aware of his chronic elevation in potassium and they state that has been like that for some time and are not sure what to do about it as he does not take potassium and a try to avoid foods high in potassium. I will give him a breathing treatment with albuterol and repeat a potassium level. Patient will then likely be able to be discharged to home and follow-up with his primary care physician for repeat potassium level in the next 2 to 3 days. Patient also will be referred to vascular surgery for evaluation of the 90% stenosis of the right internal carotid artery. I discussed these findings with his primary care physician and he is comfortable with plan. Lab Data Attestation: I reviewed the patient's lab results. Labs: Laboratory Results - last 24 hr 02/07/25 13:04 WBC 7.1 RBC 4.01 L Hgb 13.3 Hct 39.3 L MCV 98.0 H MCH 33.2 H MCHC 33.8 RDW Std Deviation 45.1 H RDW Coeff of Rubén 12.6 Plt Count 181 MPV 10.4 Immature Gran % (Auto) 0.400 Neut % (Auto) 55.1 Lymph % (Auto) 27.6 [place] % (Auto) 12.3 H Eos % (Auto) 3.9 Baso % (Auto) 0.7 Absolute Neuts (auto) 3.9 Absolute Lymphs (auto) 1.97 Nucleated RBC % 0 Sodium 134 Potassium 5.8 H Chloride 102 Carbon Dioxide 25.5 Anion Gap 7 BUN 48 H Creatinine 1.58 H Estim Creat Clear Calc 39.29 L Est GFR (MDRD) Non-Af 43 L BUN/Creatinine Ratio 30.4 H Glucose 153 H Calcium 9.4 Radiography Diagnostic Testing: Clinical Impression(s) from Imaging Studies Brain CT 02/07/25 13:11 IMPRESSION: CHRONIC CHANGES. NO ACUTE FINDINGS. Reading Location: [facility]--1 Head/Neck CTA 02/07/25 13:11 IMPRESSION: High-grade stenosis at the origin of the right internal carotid artery. Moderate degree of stenosis at the origin of the left internal carotid artery. Reading Location: [facility] Discharge Plan Triage Chief Complaint: Weakness ED Provider: Chrissy Escoto Dx/Rx/DC Orders Clinical Impression: Vertigo Instructions: ED Vertigo, Unspecified Prescriptions: New ondansetron 4 mg tablet,disintegrating 4 mg PO Q8H PRN PRN (Reason: Nausea) Qty: 10 0RF meclizine 25 mg tablet 25 mg PO TID PRN (Reason: dizziness) Qty: 14 0RF No Action carvedilol 6.25 mg tablet 6.25 mg PO BID metformin 500 mg tablet 500 mg PO BID gabapentin 300 mg capsule 300 mg PO BID nitroglycerin 0.4 mg tablet, sublingual 0.4 mg SUBLINGUAL Q5-15M PRN (Reason: chest pain) Qty: 25 3RF albuterol sulfate 90 mcg/actuation HFA aerosol inhaler 2 puff INHALATION Q6H PRN (Reason: Shortness Of Breath) atorvastatin 40 mg tablet 40 mg PO QHS furosemide 20 mg tablet 20 mg PO DAILY acetaminophen 325 mg tablet 650 mg PO Q6H PRN oxycodone 5 mg tablet 2.5 mg PO TID PRN aspirin [Adult Low Dose Aspirin] 81 mg tablet,delayed release (DR/EC) 81 mg PO DAILY ipratropium bromide 42 mcg (0.06 %) spray,non-aerosol 2 spray intranasal DAILY PRN (Reason: allergy symptoms) Rx Instructions: administer into each nostril cyanocobalamin (vitamin B-12) 1,000 MCG tablet 1,000 mcg PO DAILY cholecalciferol (vitamin D3) 5,000 UNIT capsule 5,000 unit PO DAILY clopidogrel 75 MG tablet 75 mg PO DAILY insulin aspart U-100 [Novolog FlexPen U-100 Insulin] 100 unit/mL (3 mL) insulin pen See Rx Instructions .ROUTE .COMPLEX Rx Instructions: 18-22 UNITS WITH BREAKAST, LUNCH, AND DINNER insulin glargine [Lantus Solostar U-100 Insulin] 100 unit/mL (3 mL) insulin pen 30 unit subcut QPM Jardiance 10 mg tablet 10 mg PO DAILY Primary Care Provider: Angel Weinberg Referrals: Bulmaro Ortega MD [Med Staff - Active Staff] - 3-5 Days Angel Weinberg MD [Primary Care Provider] - Activity Restrictions/Additional Instructions: Follow-up with the vascular surgeon to be evaluated for blockage in your right carotid artery. Follow-up with your primary care physician to have a repeat potassium level done within the next 2 to 3 days. Print Language: Slovenian
--- NOTE | 2025-02-07 13:11 | CT_ITS ---
PROCEDURE: BRAIN/HEAD WITHOUT CONTRAST 02/07/2025 REASON FOR EXAM: DIZZINESS TECHNIQUE: BRAIN/HEAD WITHOUT CONTRAST Coronal and Sagittal reconstruction series were provided. One or more dose reduction techniques were used (e.g., Automated exposure control, adjustment of the mA and/or kV according to patient size, use of iterative reconstruction technique. RADIATION DOSE SUMMARY: CTDlvol: 44.99 mGy DLP: 832 mGycm COMPARISON: None FINDINGS: Brain: Low density in the periventricular white matter suggests mild chronic small vessel ischemic changes. CSF Spaces: Mild generalized cerebral atrophy Sinuses/Mastoids: Clear at visualized levels Bones: CT/Brain/Head without Contrast IMPRESSION: CHRONIC CHANGES. NO ACUTE FINDINGS. Reading [facility]
--- NOTE | 2025-02-07 13:11 | CT_ITS ---
PROCEDURE: CTA HEAD AND NECK W/ CONTRAST 02/07/2025 REASON FOR EXAM: DIZZINESS TECHNIQUE: CTA HEAD AND NECK W/ CONTRAST Multiplanar Sagittal and Coronal images were obtained. CONTRAST: Isovue 370 VOLUME: 100 mL One or more dose reduction techniques were used (e.g., Automated exposure control, adjustment of the mA and/or kV according to patient size, use of iterative reconstruction technique). RADIATION DOSE SUMMARY: CTDlvol: 32 mGy DLP: 805.36 mGycm COMPARISON: Prior CT scan of the brain done earlier in the day. FINDINGS: Aortic Arch: Normal size and branching pattern. Mild atherosclerotic plaque. Brachiocephalic and Subclavians: Mild atherosclerotic plaque without significant stenosis. Prior midline sternotomy. RIGHT Carotid: Right CCA: Mild calcified and soft plaque. Right ICA: [id number]-[id number] degree of calcific plaque. Maximum stenosis (NASCET): > 90% stenosis. Right ECA: Unremarkable. LEFT Carotid: Left CCA: Unremarkable. Left ICA: Moderate degree of calcific plaque Maximum stenosis (NASCET): 70% Left ECA: Vertebrals: Dominant left vertebral artery RIGHT Vertebral: Small right vertebral artery. LEFT Vertebral: Dominant left vertebral artery Anatomy: [place] of [place] anatomy is normal. Aneurysm or avm: No intracranial aneurysms or large vascular malformations are identified. Anterior cerebral arteries: Unremarkable: Middle cerebral arteries: Unremarkable. Basilar artery: Unremarkable. Posterior cerebral arteries: Unremarkable. Other major branches of the posterior circulation: Unremarkable. Major venous structures: Unremarkable. Other findings: Neck: Lungs: Bones: CT/CTA Head AND Neck W/ Contrast IMPRESSION: High-grade stenosis at the origin of the right internal carotid artery. Modera te degree of stenosis at the origin of the left internal carotid artery. Reading Location: [place] [id number]
[2025-02-07 13:19] LABS: Absolute Lymphocyte Count 1.97 X10^3/uL (0.83-4.51); Absolute Neutrophil Count 3.9 X10^3/uL (2.0-7.7); Basophil# 0.05 X10^3/uL; Basophil% 0.7 % (0-1); Eosinophil# 0.28 X10^3/uL; Eosinophils% 3.9 % (0-5); Hematocrit 39.3 % (40-54); Hemoglobin 13.3 g/dL (13.0-16.5); Lymphocyte # 1.97 X10^3/ul (0.83-4.51); Lymphocyte % 27.6 % (19-41); Mean Corp Hgb Conc 33.8 g/dL (32-36); Mean Corpuscular Hgb 33.2 pg (27.0-32.0); Mean Platelet Vol. 10.4 fl (6.2-12.0); Monocyte# 0.88 X10^3/uL; Monocyte% 12.3 % (0-10); NRBC Flagged by Analyzer 0 % (0-5); Neutrophil # 3.93 X10^3/uL (2.7-7.7); Neutrophil % 55.1 % (47-70); Platelet Count 181 K/mm3 (150-450); RBC Distribution Width CV 12.6 % (11.6-14.6); RBC Distribution Width SD 45.1 fl (35.1-43.9); Red Blood Count 4.01 M/mm3 (4.6-6.2); White Blood Count 7.1 K/mm3 (4.4-11.0)
[2025-02-07] MEDS: Ondansetron 4 MG/2 ML Vial IV (13:37)
[2025-02-07] MEDS: Meclizine HCl 25 MG Tablet PO (13:37)
[2025-02-07 13:38] LABS: Anion Gap 7 (5-15); BUN 48 mg/dL (4-19); BUN/Creat Ratio 30.4 RATIO (10-20); Calcium,Total 9.4 mg/dL (7.6-11.0); Carbon Dioxide 25.5 mmol/L (21.0-32.0); Chloride 102 mmol/L (98-108); Creatinine, Serum 1.58 mg/dL (0.70-1.20); EST Glomerular Filtration Rate 43 (>60); Estimated Creatinine Clearance 39.29 ml/min (50-250); Glucose 153 mg/dL (70-99); Potassium 5.8 mmol/L (3.3-5.1); Sodium Level 134 mmol/L (133-145)
[2025-02-07] MEDS: 0.9% Normal Saline (1000mL) 1,000 ML 150 ML IV (13:38)
[2025-02-07 14:46] VITALS: BP 121/78; PULSE 78; RESP 16; O2SAT 98
[2025-02-07] MEDS: Albuterol 2.5 MG/3 ML VIAL.NEB. INHALATION (14:58)
[2025-02-07 14:59] VITALS: PULSE 60; RESP 17
[2025-02-07 16:02] LABS: Potassium 4.8 mmol/L (3.3-5.1)
[2025-02-07 16:16] VITALS: BP 124/67; PULSE 67; RESP 16; TEMP 36.5; O2SAT 96
== END 2025-02-07 16:19 | disposition home or self-care (01) ==
PROVIDERS: Emergency Provider Emergency Medicine; PCP Family Medicine; Visit Provider Emergency Medicine
DX: R42 Dizziness and giddiness (principal); E11.9 Type 2 diabetes mellitus without complications; I10 Essential (primary) hypertension; E78.5 Hyperlipidemia, unspecified; R53.1 Weakness; I25.10 Atherosclerotic heart disease of native coronary artery without angina pectoris; Z87.891 Personal history of nicotine dependence; R26.89 Other abnormalities of gait and mobility; I65.23 Occlusion and stenosis of bilateral carotid arteries
CPT/HCPCS: 70450; 70496; 70498; 80048; 84132; 85025; 93005; 94640; 96361; 96374; 99283; Q9967; A4216; J2405

== ENCOUNTER → 2025-03-07 | Outpatient (CLI) | payer MEDICARE, SELFPAY ==
--- NOTE | 2025-03-07 10:47 | VDLE_ITS ---
Reason For Study Reason For Study: LLE Swelling RIGHT LEFT FV is compressible, spontaneous, phasic, competent Lt GSV appears compressible ankle to knee. Lt GSV is and demonstrates normal augmentation. non visualized knee to prox thigh. Pt reports HX of Procedure harvest for CABG. This is a venous duplex using B-mode, color flow and CFV is compressible, spontaneous, phasic, competent, spectral Doppler. and demonstrates normal augmentation. Exam performed in department. FV is compressible, spontaneous, phasic, competent The exam was diagnostic. and demonstrates normal augmentation. A preliminary report was called and/or faxed to Dr. ARRIAGA V is compressible, spontaneous, phasic, competent Sultana. and demonstrates normal augmentation. T/P Trunk is compressible. PTV is compressible. LT PerV is compressible. VL/Venous Duplex US, Unilateral Interpretation Summary Deep veins of the left lower extremity are patent and compressible segmentally. There is no evidence of left lower extremity deep vein thrombosis. Valvular competence appears intact within the p roximal deep venous system on the left . The left great saphenous vein appears patent and compressible below the knee, b ut absent above the knee, consistent with a history of vein harvesting. The right femoral vein is patent and compressible . Ordering Physician: Angel Weinberg Referring Physician: Angel Weinberg Performed By: Davi Mayo RVT
== END | disposition home or self-care (01) ==
LOC: CVS 10:16
PROVIDERS: PCP Family Medicine; Referring Provider Family Medicine; Visit Provider Family Medicine
DX: M79.89 Other specified soft tissue disorders (principal)
CPT/HCPCS: 93971

== ENCOUNTER → 2025-03-07 | Outpatient (CLI) | payer MEDICARE, SELFPAY ==
[2025-03-07 12:43] LABS: AST(SGOT) 24 U/L (<=37); Alanine Aminotransfer ALT/SGPT 16 U/L (<=46); Albumin, Serum 3.9 g/dL (3.4-4.8); Alkaline Phosphatase 87 U/L (40-129); Anion Gap 11 (5-15); BUN 35 mg/dL (4-19); BUN/Creat Ratio 23.4 RATIO (10-20); Calcium,Total 9.6 mg/dL (7.6-11.0); Carbon Dioxide 24.6 mmol/L (21.0-32.0); Chloride 102 mmol/L (98-108); Globulin 2.8 g/dL (2.2-4.2); Glucose 216 mg/dL (70-99); Potassium 4.6 mmol/L (3.3-5.1); Pro- Brain NATRIURETIC PEPTIDE 746 pg/mL (<=1800)
== END | disposition home or self-care (01) ==
LOC: MFPLAB 10:04
PROVIDERS: PCP Family Medicine; Referring Provider Family Medicine; Visit Provider Family Medicine
DX: I50.42 Chronic combined systolic (congestive) and diastolic (congestive) heart failure (principal)
CPT/HCPCS: 36415; 80053; 83880

== ENCOUNTER → 2025-03-19 | Outpatient (CLI) | payer MEDICARE, SELFPAY ==
[2025-03-19 12:41] LABS: Hematocrit 38.9 % (40-54); Hemoglobin 12.8 g/dL (13.0-16.5); Immature Granulocytes Count 0.020 X10^3/uL (0.0-0.0); Mean Corp Hgb Conc 32.9 g/dL (32-36); Mean Corpuscular Volume 98.7 fL (80-94); Mean Platelet Vol. 11.1 fl (6.2-12.0); NRBC Flagged by Analyzer 0 % (0-5); Platelet Count 174 K/mm3 (150-450); RBC Distribution Width CV 12.6 % (11.6-14.6); RBC Distribution Width SD 45.2 fl (35.1-43.9); Red Blood Count 3.94 M/mm3 (4.6-6.2); White Blood Count 8.3 K/mm3 (4.4-11.0)
[2025-03-19 13:30] LABS: Creatinine, Urine (random) 71.40 mg/dL (39.00-259.00); PTHIN 63 pg/mL (11-61); Protein, Urine (Random) < 6.0 mg/dL (0.0-12.0); Protein:Creat Ratio UNABLE TO CALCULATE mg/g CRE (0-200)
[2025-03-19 13:49] LABS: AST(SGOT) 21 U/L (<=37); Alanine Aminotransfer ALT/SGPT 15 U/L (<=46); Albumin, Serum 3.9 g/dL (3.4-4.8); Alkaline Phosphatase 85 U/L (40-129); Anion Gap 12 (5-15); BUN 43 mg/dL (4-19); BUN/Creat Ratio 26.4 RATIO (10-20); Calcium,Total 9.6 mg/dL (7.6-11.0); Carbon Dioxide 23.0 mmol/L (21.0-32.0); Chloride 102 mmol/L (98-108); Cholesterol 93 mg/dL (<=200); Globulin 2.7 g/dL (2.2-4.2); Glucose 187 mg/dL (70-99); Low Density Lipoprotein Calc. 20 mg/dL; Potassium 4.6 mmol/L (3.3-5.1); Triglycerides 223 mg/dL; Very Low Density Lipoprotein 45 mg/dL (5-40); cholesterol:hdl ratio screen 3.28
[2025-03-19 13:55] LABS: Vitamin B12 571 pg/mL (180-914); Vitamin D,25 Hydroxy 29.0 ng/mL (30-100)
== END | disposition home or self-care (01) ==
LOC: MFPLAB 10:31
PROVIDERS: PCP Family Medicine; Referring Provider Family Medicine; Visit Provider Family Medicine
DX: E21.3 Hyperparathyroidism, unspecified (principal); E11.22 Type 2 diabetes mellitus with diabetic chronic kidney disease; E11.69 Type 2 diabetes mellitus with other specified complication; E53.9 Vitamin B deficiency, unspecified; E55.9 Vitamin D deficiency, unspecified; N18.9 Chronic kidney disease, unspecified
CPT/HCPCS: 36415; 80053; 80061; 82306; 82570; 82607; 83036; 83970; 84156; 84207; 84425; 85025

== ENCOUNTER → 2025-06-06 | Outpatient (CLI) | payer MEDICARE, SELFPAY ==
--- NOTE | 2025-06-06 13:13 | NEURO_ITS ---
NCS and/or EMG Patient Report Ordering Doctor: Ashley Patrick DATE OF SERVICE: 06/06/25 Issac presents with complaints of numbness and tingling in both hands. Electrodiagnostic findings: Median motor nerve demonstrates prolonged distal latency bilaterally with normal amplitudes and reduced conduction velocities. U lnar motor response within normal limits bilaterally. Prolonged median sensory latency at the wrist bilaterally. Prolonged median F?wave on the right side. Needle EMG testing was performed upper limbs. All muscles tested showed no evidence of denervation with normal motor unit action potentials. Electrodiagnostic impression: This is an abnormal study. 1. Electrodiagnostic findings suggestive of bilateral median mononeuropathy. This consistent with moderate bilateral carpal tunnel syndrome. 2. No electrodiagnostic evidence is noted for cervical radiculopathy. Multi Select Codes Neurology Neurology Interp Codes: 72739-58 Musc test done w/n test comp (interp) (2) and 13798-09 Nrv cndj test 9-10 studies (interp)
--- NOTE | 2025-06-06 13:13 | NEURO_ITS ---
NCS and/or EMG Patient Report Ordering Doctor: Ashley Patrick DATE OF SERVICE: 06/06/25 Issac presents with complaints of numbness and tingling in both hands. Electrodiagnostic findings: Median motor nerve demonstrates prolonged distal latency bilaterally with normal amplitudes and reduced conduction velocities. U lnar motor response within normal limits bilaterally. Prolonged median sensory latency at the wrist bilaterally. Prolonged median F?wave on the right side. Needle EMG testing was performed upper limbs. All muscles tested showed no evidence of denervation with normal motor unit action potentials. Electrodiagnostic impression: This is an abnormal study. 1. Electrodiagnostic findings suggestive of bilateral median mononeuropathy. This consistent with moderate bilateral carpal tunnel syndrome. 2. No electrodiagnostic evidence is noted for cervical radiculopathy. Multi Select Codes Neurology Neurology Interp Codes: 54686-06 Musc test done w/n test comp (interp) (2) and 62739-02 Nrv cndj test 9-10 studies (interp)
== END | disposition home or self-care (01) ==
LOC: PSN 09:51
PROVIDERS: PCP Family Medicine; Referring Provider Physician Assistant Surgical; Visit Provider Physician Assistant Surgical
DX: G56.03 Carpal tunnel syndrome, bilateral upper limbs (principal)
CPT/HCPCS: 95886; 95911

== ENCOUNTER → 2025-08-07 | Outpatient (CLI) | payer MEDICARE, SELFPAY ==
--- NOTE | 2025-08-07 11:35 | RAD_ITS ---
PROCEDURE: CHEST PA AND LATERAL 08/07/2025 REASON FOR EXAM: BRONCHITIS TECHNIQUE: Procedure Code: RADCXR Modality: DX Procedure: CHEST PA AND LATERAL COMPARISON: 11/22/2024 FINDINGS: Minimally worsened diffuse reticular opacities may reflect pulmonary interstitial edema versus atypical pneumonia. No new focal consolidations. No pleural effusion or pneumothorax. Cardiac silhouette is within normal limits. No acute fractures. Median sternotomy wires. Left chest pacer. Evidence of prior CABG. TAVR. RAD/Chest PA and Lateral IMPRESSION: Minimally worsened diffuse reticular opacities may reflect pulmonary interstiti al edema versus atypical pneumonia. Reading Location: [id number]
== END | disposition home or self-care (01) ==
LOC: MTRAD 11:35
PROVIDERS: PCP Family Medicine; Referring Provider Family Medicine; Visit Provider Family Medicine
DX: J20.9 Acute bronchitis, unspecified (principal)
CPT/HCPCS: 71046